=== PATIENT | female | born 1995 | race Two or more races ===

== ENCOUNTER → 2016-12-25 | Outpatient (REF) | payer OTHER ==
[~2016-12-25] MED LIST: ZANT1TAB PO
== END ==
LOC: M SFHCPLAZ 13:17
PROVIDERS: ATTEND Family Medicine
DX: R20.2 Paresthesia of skin (principal)

== ENCOUNTER → 2017-01-03 | Outpatient (REF) | payer OTHER ==
[2017-01-03 12:57] LABS: CONTROL LINE UCG INT CTR LINE PRESENT
== END ==
LOC: M LAB REF 12:41
PROVIDERS: ATTEND Physician Assistant Medical
DX: R11.2 Nausea with vomiting, unspecified (principal)

== ENCOUNTER → 2017-02-18 | Outpatient (CLI) | payer OTHER ==
--- NOTE | 2017-02-18 12:31 | REP ---
ULTRASOUND RIGHT BREAST: HISTORY: Palpable abnormality 10 o'clock right breast. Real-time sonographic evaluation of the right breast is performed in the region of 10 o'clock at the site of the reported palpable abnormality. Dense fibroglandular tissue is seen between 9-11 o'clock. No suspicious cystic or solid mass is seen. IMPRESSION: ACR 2 benign. Dense fibroglandular tissue at the site of the reported palpable abnormality without suspicious cystic or solid mass. Clinical correlation and followup recommended. Negative ultrasound should not deter biopsy of there is a clinically suspicious palpable mass present. Signed by Geoff Arndt MD 02/18/2017 04:21 P
== END ==
LOC: M RAD 10:37
PROVIDERS: ATTEND Family Medicine
DX: N64.4 Mastodynia (principal); R92.8 Other abnormal and inconclusive findings on diagnostic imaging of breast

== ENCOUNTER 2017-07-01 16:39 | Emergency (ER) | payer OTHER ==
[~2017-07-01] VITALS: Ht 154.9 cm; Wt 63.6 kg
[2017-07-01] MEDS ORDERED: ACYC400T (16:47)
[2017-07-01] MEDS ORDERED: ONDANSETRON 4MG/2ML VIAL (J2405) IV ONE (18:00)
[2017-07-01] MEDS ORDERED: MORPHINE 2 MG/ML 1ML SYRINGE IV ONE (18:00)
[2017-07-01 19:11] LABS: BASO % 0.3 % (0.0-1.0); EOS % 0.7 % (0.0-3.0); LARGE UNSTAINED CELL # 0.2 K/mm3 (0.0-0.4); LARGE UNSTAINED CELL % 2.5 % (0.0-4.0); LYMPH # 2.1 K/mm3 (1.5-6.5); MEAN CORPUSCULAR HEMOGLOBIN 30.5 pg (27.0-33.0); MEAN CORPUSCULAR VOLUME 89.7 fl (80.0-96.0); MONO # 0.5 K/mm3 (0.0-0.8); NEUTROPHILS # 5.4 K/mm3 (1.8-7.7); NEUTROPHILS % 65.5 % (36.0-66.0); PLATELET COUNT, AUTOMATED 286 k/mm3 (150-450); RED CELL DISTRIBUTION WIDTH 12.6 % (11.5-14.5); WHITE BLOOD COUNT 8.3 K/mm3 (4.0-10.0)
[2017-07-01 19:15] LABS: CONTROL LINE HCG INT CTR LINE PRESENT
[2017-07-01 19:22] LABS: ALBUMIN 4.3 GM/DL (3.2-5.2); ALBUMIN/GLOBULIN RATIO 1.26 (1.00-1.93); ALKALINE PHOSPHATASE 81 U/L (45-117); ALT/SGPT 19 U/L (12-78); ANION GAP 5 MEQ/L (8-16); AST/SGOT 15 U/L (15-37); BILIRUBIN,DIRECT 0.1 MG/DL (0.0-0.2); BILIRUBIN,TOTAL 0.4 MG/DL (0.2-1.0); BLOOD UREA NITROGEN 10 MG/DL (7-18); CALCIUM LEVEL 9.5 MG/DL (8.5-10.1); CARBON DIOXIDE LEVEL 29 MEQ/L (21-32); CHLORIDE LEVEL 107 MEQ/L (98-107); CREATININE FOR GFR 0.83 MG/DL (0.55-1.02); GLOMERULAR FILTRATION RATE > 60.0 (>60); GLUCOSE, FASTING 92 MG/DL (70-105); POTASSIUM SERUM 3.8 MEQ/L (3.5-5.1); SODIUM LEVEL 141 MEQ/L (136-145); TOTAL PROTEIN 7.7 GM/DL (6.4-8.2)
--- NOTE | 2017-07-01 20:00 | REP ---
HISTORY: Epigastric pain. COMPARISON: 02/15/2016, which was within normal limits. Multiple ultrasonographic images of the liver again show the hepatic parenchymal echo pattern to be within normal limits. There is no intrahepatic or extrahepatic ductal diltation. The common bile duct measures 3 mm. Multiple ultrasonographic images of the gallbladder show no abnormalities. There are no choleliths. There is no pericholecystic edema. There is no change from the prior exam. The imaged portion of the pancreas and right kidney are again seen to be within normal limits. IMPRESSION: Unremarkable right upper quadrant ultrasound examination and essentially no change from the prior exam of 02/15/2016. Signed by Toney Paulson DO 07/05/2017 10:30 A
[2017-07-01] MEDS ORDERED: LACT3000 PO (20:08)
[2017-07-01] MEDS ORDERED: DEXI60CA2 PO (20:08)
[2017-07-01] MEDS ORDERED: GI COCKTAIL 50ML BTL(HYOSCYAMINE/MAALOX/LIDOCAINE VISCOUS)(1:3:1) PO ONE (20:30)
[2017-07-01 20:44] VITALS: BP 105/52
== END 2017-07-01 20:45 | disposition home or self-care (01) ==
LOC: M ED 16:39
DX: K29.70 Gastritis, unspecified, without bleeding (principal); K59.00 Constipation, unspecified; K21.9 Gastro-esophageal reflux disease without esophagitis; Z87.440 Personal history of urinary (tract) infections; F17.210 Nicotine dependence, cigarettes, uncomplicated; Z88.5 Allergy status to narcotic agent; Z91.048 Other nonmedicinal substance allergy status; Z79.899 Other long term (current) drug therapy
CPT/HCPCS: 76705; 80048; 80076; 81001; 83690; 84703; 85025; 96374; 96375; 99283; J2405

== ENCOUNTER 2017-08-04 16:37 | Emergency (ER) | payer OTHER ==
[~2017-08-04] VITALS: Ht 154.9 cm; Wt 60.9 kg
[~2017-08-04 16:37] MED LIST changes: +ACYC400T; +DEXI60CA2 PO; +LACT3000 PO
[2017-08-04] MEDS ORDERED: DOCQ100C (17:03)
[2017-08-04] MEDS ORDERED: RANI150T (17:03)
[2017-08-04] MEDS ORDERED: KETOROLAC 60 MG/2 ML VIAL (J1885) IM ONE (18:15)
[2017-08-04] MEDS ORDERED: ONDANSETRON 4 MG ORAL DISINTEGRATING TAB (S0181) PO ONE (18:15)
[2017-08-04 18:47] LABS: METHADONE URINE NEGATIVE (NEGATIVE)
--- NOTE | 2017-08-04 19:10 | REP ---
ABDOMINAL SERIES: Supine and erect views of the abdomen demonstrate no free air and no evidence for obstruction. No dilated small bowel loops are seen. There is no evidence of fecal impaction. No abnormal calcifications are seen. An accompanying view of the chest demonstrates no acute infiltrate. Cardiomediastinal silhouette is unremarkable. IMPRESSION: Negative abdominal series. Signed by Geoff Arndt MD 08/04/2017 07:52 P
[2017-08-04] MEDS ORDERED: MAGNESIUM CITRATE 300 ML BTL PO ONE ×2 (19:30→21:00)
[2017-08-04] MEDS ORDERED: GI COCKTAIL 50ML BTL(HYOSCYAMINE/MAALOX/LIDOCAINE VISCOUS)(1:3:1) PO ONE (19:45)
[2017-08-04 21:09] VITALS: BP 124/65
[2017-09-14] MEDS ORDERED: LINZ290C PO (14:10)
== END 2017-08-04 21:20 | disposition home or self-care (01) ==
LOC: M ED 16:37
DX: K59.00 Constipation, unspecified (principal); J45.909 Unspecified asthma, uncomplicated; B00.9 Herpesviral infection, unspecified; K58.9 Irritable bowel syndrome, unspecified; F17.210 Nicotine dependence, cigarettes, uncomplicated; Z79.899 Other long term (current) drug therapy; Z88.5 Allergy status to narcotic agent; L23.1 Allergic contact dermatitis due to adhesives
CPT/HCPCS: 74022; 80307; 81001; 81025; 96372; 99284; J1885

== ENCOUNTER 2017-08-06 16:23 | Emergency (ER) | payer OTHER ==
[~2017-08-06] VITALS: Ht 154.9 cm; Wt 60.9 kg
[~2017-08-06 16:23] MED LIST changes: +DOCQ100C; +RANI150T
[2017-08-06 16:24] VITALS: BP 118/58
[2017-08-06 16:59] LABS: BASO % 0.2 % (0.0-1.0); EOS % 0.1 % (0.0-3.0); IMMATURE GRANULOCYTE % 0.3 % (0-0); LYMPH # 1.3 10^3/uL (1.5-6.5); LYMPH % 14.2 % (24.0-44.0); MEAN CORPUSCULAR HEMOGLOBIN 30.5 pg (27.0-33.0); MEAN CORPUSCULAR HGB CONC 34.1 g/dl (32.0-36.5); MEAN CORPUSCULAR VOLUME 89.4 fl (80.0-96.0); MONO # 0.5 10^3/uL (0.0-0.8); MONO % 5.2 % (0.0-5.0); NEUTROPHILS # 7.5 10^3/uL (1.8-7.7); PLATELET COUNT, AUTOMATED 275 10^3/uL (150-450); RED CELL DISTRIBUTION WIDTH 12.7 % (11.5-14.5); WHITE BLOOD COUNT 9.3 10^3/uL (4.0-10.0)
[2017-08-06] MEDS ORDERED: METOCLOPRAMIDE INJ 10MG/2ML VIAL (J2765) IV ONE (17:00)
[2017-08-06] MEDS ORDERED: SUCRALFATE SUSP 1GM/10ML UD PO ONE (17:15)
[2017-08-06] MEDS ORDERED: NS 1,000 ML IV ONE (17:15)
[2017-08-06] MEDS ORDERED: DICYCLOMINE INJ 20MG/2ML (J0500) IM ONE (17:30)
[2017-08-06 17:31] LABS: CONTROL LINE HCG INT CTR LINE PRESENT
[2017-08-06 17:46] LABS: ALBUMIN 4.5 GM/DL (3.2-5.2); ALBUMIN/GLOBULIN RATIO 1.36 (1.00-1.93); ALKALINE PHOSPHATASE 74 U/L (45-117); ALT/SGPT 16 U/L (12-78); ANION GAP 8 MEQ/L (8-16); AST/SGOT 9 U/L (7-37); BILIRUBIN,DIRECT 0.2 MG/DL (0.0-0.2); BILIRUBIN,TOTAL 0.6 MG/DL (0.2-1.0); BLOOD UREA NITROGEN 8 MG/DL (7-18); CALCIUM LEVEL 9.5 MG/DL (8.5-10.1); CARBON DIOXIDE LEVEL 25 MEQ/L (21-32); CHLORIDE LEVEL 107 MEQ/L (98-107); CREATININE FOR GFR 0.71 MG/DL (0.55-1.02); GLOMERULAR FILTRATION RATE > 60.0 (>60); GLUCOSE, FASTING 96 MG/DL (70-105); SODIUM LEVEL 140 MEQ/L (136-145); TOTAL PROTEIN 7.8 GM/DL (6.4-8.2)
[2017-08-06] MEDS ORDERED: BENT10CA PO (17:56)
[2017-08-06] MEDS ORDERED: PROMETHAZINE INJ 25 MG/ML VIAL (J2550) IV ONE (18:00)
[2017-08-06] MEDS ORDERED: KETOROLAC 30 MG/ML VIAL (J1885) IV ONE (18:15)
[2017-08-06] MEDS ORDERED: REGL10TA6 PO (18:24)
== END 2017-08-06 19:50 | disposition home or self-care (01) ==
LOC: M ED 16:23
DX: R10.9 Unspecified abdominal pain (principal); J45.909 Unspecified asthma, uncomplicated; K58.1 Irritable bowel syndrome with constipation; Z79.899 Other long term (current) drug therapy; Z88.5 Allergy status to narcotic agent; L23.1 Allergic contact dermatitis due to adhesives
CPT/HCPCS: 80048; 80076; 81025; 83690; 84703; 85025; 96372; 96374; 96375; 99284; J0500; J1885; J2765

== ENCOUNTER → 2017-09-13 | Outpatient (CLI) | payer OTHER ==
[~2017-09-13] MED LIST changes: +BENT10CA PO; +GLUCAGON FOR INJ 1 MG VIAL (J1610) As Ordered ONE; +ISOVUE-370 76% 100ML VIAL (Q9967) As Ordered ONE; +LINZ290C PO; +REGL10TA6 PO; +VoLumen 0.1% SUSPENSION 450ML BOTTLE As Ordered ONE
--- NOTE | 2017-09-14 07:57 | REP ---
CONTRAST ENHANCED CT OF THE ABDOMEN AND PELVIS USING CT-ENTEROGRAPHIC TECHNIQUES: TECHNIQUE: Axial contrast enhanced images from the lung bases to the pubic symphysis using low density oral contrast for protocol along with 100 mL Isovue, 370 intravenous contrast material with images obtained in the arterial venous phase of enhancement along with coronal and sagittal reformations. FINDINGS: The lung bases are well aerated and clear. Visualized portions of the heart and pericardium are normal. Liver, spleen, pancreas, gallbladder, bilateral adrenal glands and kidneys are normal. Evaluation of the enteric system demonstrates normal appearance to the stomach, small and large bowel without evidence for mural thickening, perienteric inflammatory stranding, or other such abnormalities. There is no evidence for bowel obstruction or perforation. Normal cecum, terminal ileum and appendix identified in the right upper quadrant. The pelvis demonstrates normal bladder and appropriate uterus/adnexa. No pelvic fluid. No solitary mass lesion identified. Vascularity is normal. Surrounding musculoskeletal structures are intact. IMPRESSION: 1. Normal CT of the abdomen and pelvis. No acute abdominal or pelvic pathology appreciated. Specifically, normal appearance to the enteric system. Signed by Darrel Lucas MD 09/17/2017 07:16 A
== END ==
LOC: M RAD 16:40
PROVIDERS: ATTEND Internal Medicine Gastroenterology
DX: R93.3 Abnormal findings on diagnostic imaging of other parts of digestive tract (principal); R63.4 Abnormal weight loss
CPT/HCPCS: 74177; J1610; Q9967

== ENCOUNTER 2017-11-09 11:45 | Day surgery (SDC) | payer OTHER ==
[2017-11-09] MEDS ORDERED: NS 1,000 ML IV (12:15)
[2017-11-09] MEDS ORDERED: LIDOCAINE 2% INJ 100 MG/5 ML SDV (FOR ANES.) As Ordered (12:49)
[2017-11-09] MEDS ORDERED: PROPOFOL 200 MG/20 ML VIAL As Ordered (12:49)
== END 2017-11-09 13:35 | disposition home or self-care (01) ==
LOC: M OPP 11:45
DX: R10.13 Epigastric pain (principal); K58.9 Irritable bowel syndrome, unspecified; R12 Heartburn; K21.9 Gastro-esophageal reflux disease without esophagitis; F41.9 Anxiety disorder, unspecified; F32.9 Major depressive disorder, single episode, unspecified; R51 Headache; B00.9 Herpesviral infection, unspecified; F17.210 Nicotine dependence, cigarettes, uncomplicated; Z88.5 Allergy status to narcotic agent; Z91.048 Other nonmedicinal substance allergy status; Z79.899 Other long term (current) drug therapy; Z80.0 Family history of malignant neoplasm of digestive organs; Z80.3 Family history of malignant neoplasm of breast; Z80.49 Family history of malignant neoplasm of other genital organs
CPT/HCPCS: 43235

== ENCOUNTER 2018-03-04 17:16 | Emergency (ER) | payer OTHER ==
[2018-03-04 19:39] LABS: BASO % 0.4 % (0.0-1.0); EOS # 0.1 10^3/uL (0.0-0.50); EOS % 1.1 % (0.0-3.0); HEMATOCRIT 35.4 % (36.0-47.0); HEMOGLOBIN 12.1 g/dl (12.0-15.5); IMMATURE GRANULOCYTE % 0.3 % (0-3.0); LYMPH # 1.8 10^3/uL (1.5-6.5); LYMPH % 24.4 % (24.0-44.0); MEAN CORPUSCULAR HEMOGLOBIN 30.9 pg (27.0-33.0); MEAN CORPUSCULAR HGB CONC 34.2 g/dl (32.0-36.5); MEAN CORPUSCULAR VOLUME 90.3 fl (80.0-96.0); MONO # 0.8 10^3/uL (0.0-0.8); MONO % 10.4 % (0.0-5.0); NEUTROPHILS # 4.6 10^3/uL (1.8-7.7); NEUTROPHILS % 63.4 % (36.0-66.0); PLATELET COUNT, AUTOMATED 246 10^3/uL (150-450); RED BLOOD COUNT 3.92 10^6/uL (4.00-5.40); RED CELL DISTRIBUTION WIDTH 12.5 % (11.5-14.5); WHITE BLOOD COUNT 7.3 10^3/uL (4.0-10.0)
[2018-03-04 19:56] LABS: CONTROL LINE HCG INT CTR LINE PRESENT; HCG, SERUM QUALITATIVE NEGATIVE (NEGATIVE)
[2018-03-04 20:03] LABS: ALBUMIN 4.2 GM/DL (3.2-5.2); ALBUMIN/GLOBULIN RATIO 1.35 (1.00-1.93); ALKALINE PHOSPHATASE 63 U/L (45-117); ALT/SGPT 15 U/L (12-78); ANION GAP 8 MEQ/L (8-16); AST/SGOT 16 U/L (7-37); BILIRUBIN,TOTAL 0.5 MG/DL (0.2-1.0); BLOOD UREA NITROGEN 9 MG/DL (7-18); CALCIUM LEVEL 9.2 MG/DL (8.5-10.1); CARBON DIOXIDE LEVEL 28 MEQ/L (21-32); CHLORIDE LEVEL 106 MEQ/L (98-107); CREATININE FOR GFR 0.64 MG/DL (0.55-1.30); GLOMERULAR FILTRATION RATE > 60.0 (>60); GLUCOSE, FASTING 82 MG/DL (70-100); POTASSIUM SERUM 3.7 MEQ/L (3.5-5.1); SODIUM LEVEL 142 MEQ/L (136-145); TOTAL PROTEIN 7.3 GM/DL (6.4-8.2)
[2018-03-04] MEDS: AZITHROMYCIN 250 MG TAB PO (20:25)
[2018-03-04] MEDS: ULIPRISTAL ACETATE 30 MG TAB (ELLA) PO (20:25)
[2018-03-04] MEDS: metroNIDAZOLE (FLAGYL) 500 MG TAB PO (20:25)
[2018-03-04] MEDS: EXPOSURE KIT-ADULT 7 DAY SUPPLY PO (20:26)
[2018-03-04] MEDS: ADACEL/BOOSTRIX VACCINE (DIPHTH/PERTUSS/ACELL/TETANUS)0.5ML SYR (90715) IM (20:26)
[2018-03-04] MEDS: cefTRIAXone SOD 250 MG VIAL (J0696) IM (20:27)
[2018-03-04] MEDS: [UNRECOGNIZED DRUG - OTHER] IM (20:27)
[2018-03-04 20:36] LABS: CHLAMYDIA DNA AMPLIFICATION NEGATIVE (NEGATIVE); GC DNA AMPLIFICATION NEGATIVE (NEGATIVE)
[2018-03-04 20:50] LABS: HIV 1&2 SCREEN CENTAUR NEGATIVE (NEGATIVE)
[2018-03-07 11:04] LABS: HEPATITIS B SURFACE ANTIBODY NEGATIVE (POSITIVE)
[2018-03-07 11:14] LABS: HEPATITIS B SURFACE ANTIGEN NEGATIVE (NEGATIVE)
[2018-03-07 11:43] LABS: HEPATITIS C VIRUS ABY INDEX < 0.0 INDEX (<0.8)
== END 2018-03-04 21:44 | disposition home or self-care (01) ==
LOC: M ED 17:16
DX: Z04.41 Encounter for examination and observation following alleged adult rape (principal); R30.0 Dysuria; F32.9 Major depressive disorder, single episode, unspecified; F41.9 Anxiety disorder, unspecified; K58.1 Irritable bowel syndrome with constipation; K21.9 Gastro-esophageal reflux disease without esophagitis; F17.200 Nicotine dependence, unspecified, uncomplicated
CPT/HCPCS: 90715

== ENCOUNTER → 2018-07-31 | Outpatient (REF) | payer OTHER | LOC: M LAB REF 21:07 | DX: J02.9 Acute pharyngitis, unspecified (principal) ==

== ENCOUNTER → 2018-09-27 | Outpatient (CLI) | payer OTHER ==
[~2018-09-27] MED LIST changes: +ALPR0.25 PO; -DOCQ100C; +DOCQ100C5; +FLUO20CA8 PO; -GLUCAGON FOR INJ 1 MG VIAL (J1610) As Ordered ONE; -ISOVUE-370 76% 100ML VIAL (Q9967) As Ordered ONE; +RALT40TA PO; +TRUVTAB PO; -VoLumen 0.1% SUSPENSION 450ML BOTTLE As Ordered ONE; +XANA0.25 PO; +ZANT150T15 PO; -ZANT1TAB PO; +ZOFR4TAB14 PO
== END ==
LOC: M LAB 10:33 → MERGE 10:33
PROVIDERS: ATTEND Family Medicine
DX: F41.9 Anxiety disorder, unspecified (principal)

== ENCOUNTER 2018-09-29 09:21 | Emergency (ER) | payer OTHER ==
[2018-09-29 11:40] LABS: HEMATOCRIT 38.3 % (36.0-47.0); HEMOGLOBIN 12.7 g/dl (12.0-15.5); MEAN CORPUSCULAR HEMOGLOBIN 30.4 pg (27.0-33.0); MEAN CORPUSCULAR HGB CONC 33.2 g/dl (32.0-36.5); MEAN CORPUSCULAR VOLUME 91.6 fl (80.0-96.0); PLATELET COUNT, AUTOMATED 229 10^3/uL (150-450); RED BLOOD COUNT 4.18 10^6/uL (4.00-5.40); WHITE BLOOD COUNT 6.9 10^3/uL (4.0-10.0)
[2018-09-29 12:08] LABS: AMPHETAMINES LEVEL URINE NEGATIVE (NEGATIVE); BARBITURATES URINE NEGATIVE (NEGATIVE); BENZODIAZEPINES URINE POSITIVE (NEGATIVE); CANNABINOIDS URINE POSITIVE (NEGATIVE); COCAINE METABOLITE URINE NEGATIVE (NEGATIVE); METHADONE URINE NEGATIVE (NEGATIVE); OPIATES URINE NEGATIVE (NEGATIVE); PHENCYCLIDINE URINE NEGATIVE (NEGATIVE)
[2018-09-29 12:14] LABS: CONTROL LINE HCG INT CTR LINE PRESENT; HCG, SERUM QUALITATIVE NEGATIVE (NEGATIVE)
[2018-09-29 12:22] LABS: ALBUMIN 3.9 GM/DL (3.2-5.2); ALBUMIN/GLOBULIN RATIO 1.15 (1.00-1.93); ALKALINE PHOSPHATASE 57 U/L (45-117); ALT/SGPT 13 U/L (12-78); ANION GAP 5 MEQ/L (8-16); AST/SGOT 13 U/L (7-37); BILIRUBIN,DIRECT 0.1 MG/DL (0.0-0.2); BILIRUBIN,TOTAL 0.4 MG/DL (0.2-1.0); BLOOD UREA NITROGEN 14 MG/DL (7-18); CALCIUM LEVEL 8.7 MG/DL (8.5-10.1); CARBON DIOXIDE LEVEL 29 MEQ/L (21-32); CHLORIDE LEVEL 106 MEQ/L (98-107); CREATININE FOR GFR 0.69 MG/DL (0.55-1.30); ETHYL ALCOHOL (ETHANOL) 0.006 % (0.000-0.010); GLOMERULAR FILTRATION RATE > 60.0 (>60); GLUCOSE, FASTING 83 MG/DL (70-100); POTASSIUM SERUM 4.5 MEQ/L (3.5-5.1); SALICYLATE LEVEL 2.8 MG/DL (5.0-30.0); SODIUM LEVEL 140 MEQ/L (136-145); TOTAL PROTEIN 7.3 GM/DL (6.4-8.2)
[2018-09-29 12:23] LABS: ACETAMINOPHEN LEVEL < 2.0 UG/ML (10.0-30.0)
== END 2018-09-29 13:44 | disposition home or self-care (01) ==
LOC: M ED 09:21
DX: F91.9 Conduct disorder, unspecified (principal); F41.1 Generalized anxiety disorder; F17.210 Nicotine dependence, cigarettes, uncomplicated
CPT/HCPCS: 80320

== ENCOUNTER → 2019-09-13 | Outpatient (CLI) | payer OTHER ==
[2019-09-13 07:00] LABS: HEMATOCRIT 39.9 % (36.0-47.0); HEMOGLOBIN 12.5 g/dl (12.0-15.5); MEAN CORPUSCULAR HEMOGLOBIN 29.4 pg (27.0-33.0); MEAN CORPUSCULAR HGB CONC 31.3 g/dl (32.0-36.5); MEAN CORPUSCULAR VOLUME 93.9 fl (80.0-96.0); PLATELET COUNT, AUTOMATED 326 10^3/uL (150-450); RED BLOOD COUNT 4.25 10^6/uL (4.00-5.40); WHITE BLOOD COUNT 7.5 10^3/uL (4.0-10.0)
[2019-09-13 07:35] LABS: ALBUMIN 3.9 GM/DL (3.2-5.2); ALT/SGPT 26 U/L (12-78); BILIRUBIN,TOTAL 0.2 MG/DL (0.2-1.0); BLOOD UREA NITROGEN 20 MG/DL (7-18); CALCIUM LEVEL 9.1 MG/DL (8.5-10.1); CARBON DIOXIDE LEVEL 30 MEQ/L (21-32); CHLORIDE LEVEL 105 MEQ/L (98-107); CREATININE FOR GFR 0.71 MG/DL (0.55-1.30); FREE T4 1.05 NG/DL (0.76-1.46); GLOMERULAR FILTRATION RATE > 60.0 (>60); GLUCOSE, FASTING 105 MG/DL (70-100); HCG, SERUM QUALITATIVE NEGATIVE (NEGATIVE); POTASSIUM SERUM 4.2 MEQ/L (3.5-5.1); SODIUM LEVEL 141 MEQ/L (136-145); TOTAL PROTEIN 7.4 GM/DL (6.4-8.2)
--- NOTE | 2019-09-13 17:34 | ECGEPIP ---
[facility] Test Date: 2019-09-13 Pat Name: CIPRIANO SMITH Department: Room: - Gender: Female Critical Care Nurse Specialist: HELEN : 1995 Requested By: Rocio Melgar Order Number: [id number] Reading MD: Chun Anderson Measurements Intervals [place] Rate: 53 P: 61 LA: 107 QRS: 9 QRSD: 94 T: 12 QT: 398 QTc: 375 Interpretive Statements SINUS BRADYCARDIA WITH SHORT LA INTERVAL Baseline artifact Electronically Signed on 09-13-2019 17:33:49 EST by Chun Anderson
== END ==
LOC: M LAB 06:36
PROVIDERS: ATTEND Nurse Practitioner Psychiatric/Mental Health
DX: R00.1 Bradycardia, unspecified (principal); F41.1 Generalized anxiety disorder; F11.20 Opioid dependence, uncomplicated; R94.31 Abnormal electrocardiogram [ECG] [EKG]

== ENCOUNTER → 2019-10-19 | Outpatient (REF) | payer OTHER ==
[~2019-10-19] MED LIST changes: +FLUO20CA20 PO; -FLUO20CA8 PO
[2019-10-19 14:22] LABS: BASO % 0.7 % (0.0-1.0); EOS # 0.1 10^3/uL (0.0-0.5); EOS % 2.2 % (0.0-3.0); HEMOGLOBIN 13.4 g/dl (12.0-15.5); LYMPH # 2.8 10^3/uL (1.5-5.0); LYMPH % 46.9 % (24.0-44.0); MEAN CORPUSCULAR HEMOGLOBIN 28.6 pg (27.0-33.0); MEAN CORPUSCULAR HGB CONC 31.2 g/dl (32.0-36.5); MEAN CORPUSCULAR VOLUME 91.9 fl (80.0-96.0); MONO # 0.6 10^3/uL (0.0-0.8); MONO % 9.8 % (0.0-5.0); NEUTROPHILS # 2.4 10^3/uL (1.5-8.5); NEUTROPHILS % 40.2 % (36.0-66.0); PLATELET COUNT, AUTOMATED 393 10^3/uL (150-450); RED BLOOD COUNT 4.68 10^6/uL (4.00-5.40); WHITE BLOOD COUNT 5.9 10^3/uL (4.0-10.0)
[2019-10-19 14:42] LABS: ALT/SGPT 23 U/L (12-78); BILIRUBIN,TOTAL 0.3 MG/DL (0.2-1.0); BLOOD UREA NITROGEN 14 MG/DL (7-18); CALCIUM LEVEL 9.4 MG/DL (8.5-10.1); CARBON DIOXIDE LEVEL 29 MEQ/L (21-32); CHLORIDE LEVEL 104 MEQ/L (98-107); CHOLESTEROL LEVEL 176 MG/DL (<200); CHOLESTEROL RISK RATIO 2.588 (<5); FREE T4 0.95 NG/DL (0.76-1.46); GLOMERULAR FILTRATION RATE > 60.0 (>60); GLUCOSE, FASTING 85 MG/DL (70-100); HDL CHOLESTEROL 68 MG/DL (>40); LDL CHOLESTEROL 97 MG/DL (<100); NON-HDL-C 108 MG/DL; POTASSIUM SERUM 4.5 MEQ/L (3.5-5.1); SODIUM LEVEL 139 MEQ/L (136-145); TOTAL PROTEIN 7.2 GM/DL (6.4-8.2); TRIGLYCERIDES LEVEL 56 MG/DL (<150)
[2019-10-19 14:43] LABS: HEMOGLOBIN A1c 5.2 %
[2019-10-19 14:44] LABS: TOTAL 25(OH) VITAMIN D 21.7 NG/ML (30.0-100.0)
== END ==
LOC: M LAB REF 14:08
PROVIDERS: ATTEND Nurse Practitioner Family
DX: Z13.9 Encounter for screening, unspecified (principal)

== ENCOUNTER 2019-11-09 17:31 | Emergency (ER) | payer OTHER ==
[~2019-11-09] VITALS: Ht 154.9 cm; Wt 59.1 kg
[2019-11-09] MEDS ORDERED: BUPREN/NALOX (20:19)
[2019-11-09] MEDS ORDERED: HYDR50TA70 PO (20:19)
[2019-11-09 20:25] LABS: BASO # 0.1 10^3/uL (0.0-0.2); BASO % 0.3 % (0.0-1.0); EOS # 0.1 10^3/uL (0.0-0.5); EOS % 0.8 % (0.0-3.0); HEMATOCRIT 41.2 % (36.0-47.0); HEMOGLOBIN 13.4 g/dl (12.0-15.5); LYMPH # 1.5 10^3/uL (1.5-5.0); LYMPH % 10.2 % (24.0-44.0); MEAN CORPUSCULAR HEMOGLOBIN 28.8 pg (27.0-33.0); MEAN CORPUSCULAR HGB CONC 32.5 g/dl (32.0-36.5); MEAN CORPUSCULAR VOLUME 88.4 fl (80.0-96.0); MONO % 6.9 % (0.0-5.0); NEUTROPHILS # 11.7 10^3/uL (1.5-8.5); NEUTROPHILS % 81.4 % (36.0-66.0); PLATELET COUNT, AUTOMATED 301 10^3/uL (150-450); RED BLOOD COUNT 4.66 10^6/uL (4.00-5.40); WHITE BLOOD COUNT 14.4 10^3/uL (4.0-10.0)
[2019-11-09 21:00] LABS: HCG, SERUM QUALITATIVE NEGATIVE (NEGATIVE)
[2019-11-09] MEDS ORDERED: PANTOPRAZOLE 40MG INJ (PROTONIX) (C9113) IV ONE (21:00)
[2019-11-09] MEDS ORDERED: PROMETHAZINE INJ 25 MG/ML VIAL (J2550) IM ONE (21:00)
[2019-11-09 21:16] LABS: ALBUMIN 4.1 GM/DL (3.2-5.2); ALT/SGPT 44 U/L (12-78); BILIRUBIN,DIRECT < 0.1 MG/DL (0.0-0.2); BILIRUBIN,TOTAL 0.4 MG/DL (0.2-1.0); BLOOD UREA NITROGEN 10 MG/DL (7-18); CALCIUM LEVEL 9.2 MG/DL (8.5-10.1); CARBON DIOXIDE LEVEL 27 MEQ/L (21-32); CHLORIDE LEVEL 105 MEQ/L (98-107); CREATININE FOR GFR 0.65 MG/DL (0.55-1.30); GLOMERULAR FILTRATION RATE > 60.0 (>60); GLUCOSE, FASTING 101 MG/DL (70-100); LIPASE 136 U/L (73-393); POTASSIUM SERUM 4.1 MEQ/L (3.5-5.1); SODIUM LEVEL 138 MEQ/L (136-145); TOTAL PROTEIN 7.2 GM/DL (6.4-8.2)
[2019-11-09 23:25] LABS: AMPHETAMINES LEVEL URINE NEGATIVE (NEGATIVE); BARBITURATES URINE NEGATIVE (NEGATIVE); BENZODIAZEPINES URINE NEGATIVE (NEGATIVE); CANNABINOIDS URINE POSITIVE (NEGATIVE); COCAINE METABOLITE URINE NEGATIVE (NEGATIVE); METHADONE URINE NEGATIVE (NEGATIVE); OPIATES URINE NEGATIVE (NEGATIVE); PHENCYCLIDINE URINE NEGATIVE (NEGATIVE)
--- NOTE | 2019-11-10 00:11 | REPVR ---
PROCEDURE INFORMATION: Exam: CT Abdomen And Pelvis Without Contrast Exam date and time: 11/09/2019 10:30 PM Age: 24 years old Clinical indication: Abdominal pain; Generalized; Additional info: Abd pain, hematuria TECHNIQUE: Imaging protocol: Computed tomography of the abdomen and pelvis without contrast. Radiation optimization: All CT scans at this facility use at least one of these dose optimization techniques: automated exposure control; mA and/or kV adjustment per patient size (includes targeted exams where dose is matched to clinical indication); or iterative reconstruction. COMPARISON: CT ABD PELVIS WITH CONTRAST 09/13/2017 6:23 PM FINDINGS: Mediastinum: Minimal hiatal hernia. Liver: Normal. No mass. Gallbladder and bile ducts: Normal. No calcified stones. No ductal dilation. Pancreas: Normal. No ductal dilation. Spleen: Normal. No splenomegaly. Adrenals: Normal. No mass. Kidneys and ureters: No renal or ureteral calculi. Stomach and bowel: Mild stool throughout much of the colon. Appendix: A normal small appendix is seen. Intraperitoneal space: Unremarkable. No free air. No significant fluid collection. Vasculature: Unremarkable. No abdominal aortic aneurysm. Lymph nodes: Unremarkable. No enlarged lymph nodes. Bladder: Unremarkable as visualized. Reproductive: Unremarkable as visualized. Bones/joints: Unremarkable. No acute fracture. Soft tissues: Unremarkable. IMPRESSION: 1. Minimal hiatal hernia. 2. Otherwise negative CT abdomen/pelvis without significant change from 09/13/2017. No renal or ureteral calculi are evident and there is no evidence of obstructive uropathy. Electronically signed by: Bashir Martínez On 11/10/2019 00:10:35 AM
[2019-11-10] MEDS ORDERED: CARA1TAB6 PO (00:17)
[2019-11-10] MEDS ORDERED: PROT1TAB2 PO (00:17)
[2019-11-10 00:45] VITALS: BP 97/59
[2019-11-10] MEDS ORDERED: ONDANSETRON 4 MG ORAL DISINTEGRATING TAB (Q0162 PER 1MG) PO ONE (01:15)
== END 2019-11-10 01:14 | disposition home or self-care (01) ==
LOC: M ED 17:31
DX: K44.9 Diaphragmatic hernia without obstruction or gangrene (principal); K21.9 Gastro-esophageal reflux disease without esophagitis; F41.9 Anxiety disorder, unspecified; Z79.899 Other long term (current) drug therapy; Z91.048 Other nonmedicinal substance allergy status
CPT/HCPCS: 74176; 80048; 80076; 80307; 81001; 83690; 84703; 85025; 87086; 96372; 96374; 99284; C9113; Q0162

== ENCOUNTER 2019-12-11 12:39 | Emergency (ER) | payer OTHER ==
[~2019-12-11 12:39] MED LIST changes: +BUPREN/NALOX; +CARA1TAB6 PO; +HYDR50TA70 PO; +PROT1TAB2 PO
[2019-12-11] MEDS ORDERED: NS 1,000 ML IV ONE (13:00)
[2019-12-11 13:27] LABS: BASO % 0.5 % (0.0-1.0); EOS # 0.2 10^3/uL (0.0-0.5); EOS % 2.9 % (0.0-3.0); HEMATOCRIT 38.7 % (36.0-47.0); HEMOGLOBIN 12.6 g/dl (12.0-15.5); LYMPH # 2.6 10^3/uL (1.5-5.0); LYMPH % 42.4 % (24.0-44.0); MEAN CORPUSCULAR HEMOGLOBIN 29.3 pg (27.0-33.0); MEAN CORPUSCULAR HGB CONC 32.6 g/dl (32.0-36.5); MONO # 0.6 10^3/uL (0.0-0.8); MONO % 9.5 % (0.0-5.0); NEUTROPHILS # 2.8 10^3/uL (1.5-8.5); NEUTROPHILS % 44.5 % (36.0-66.0); PLATELET COUNT, AUTOMATED 277 10^3/uL (150-450); WHITE BLOOD COUNT 6.2 10^3/uL (4.0-10.0)
[2019-12-11] MEDS ORDERED: SUBO8MIS SL (13:35)
[2019-12-11] MEDS ORDERED: ISOVUE-370 76% 100ML VIAL (Q9967) As Ordered ONE (13:37)
[2019-12-11 13:58] LABS: ACETAMINOPHEN LEVEL < 2.0 UG/ML (10.0-30.0); ALBUMIN 3.8 GM/DL (3.2-5.2); ALT/SGPT 17 U/L (12-78); BILIRUBIN,DIRECT 0.1 MG/DL (0.0-0.2); BILIRUBIN,TOTAL 0.4 MG/DL (0.2-1.0); ETHYL ALCOHOL (ETHANOL) < 0.003 % (0.000-0.010); LIPASE 100 U/L (73-393); TOTAL PROTEIN 7.2 GM/DL (6.4-8.2)
[2019-12-11 14:45] VITALS: BP 111/64
--- NOTE | 2019-12-11 15:04 | REP ---
CT ABDOMEN AND PELVIS WITH IV CONTRAST: TECHNIQUE: Axial contrast enhanced images from the lung bases to the pubic symphysis using 100 mL Isovue 370 intravenous contrast material with multiplanar reformations. COMPARISON: 11/09/2019 as well as other prior exams. Visualized lung bases demonstrate no infiltrate. The liver, spleen, adrenals, pancreas, and kidneys are unremarkable. There is no hydronephrosis bilaterally. There is no abdominal aortic aneurysm. There is no adenopathy. There is no free air or free fluid. There is no bowel wall thickening. There is no evidence of appendicitis. No pelvic mass is seen. Urinary bladder is mildly distended and grossly unremarkable. There is no small bowel obstruction. IMPRESSION: No acute abnormality detected. Electronically Signed by Geoff Arndt MD 12/11/2019 05:59 P
== END 2019-12-11 15:15 | disposition left against medical advice (07) ==
LOC: M ED 12:39
DX: F11.20 Opioid dependence, uncomplicated (principal); F33.9 Major depressive disorder, recurrent, unspecified; K21.9 Gastro-esophageal reflux disease without esophagitis; Z91.048 Other nonmedicinal substance allergy status
CPT/HCPCS: 36415; 74177; 80047; 80076; 83605; 83690; 84443; 84702; 85025; 93041; 96360; 96361; 99284; G0480; Q9967

== ENCOUNTER → 2020-03-20 | Outpatient (REF) | payer OTHER ==
[~2020-03-20] MED LIST changes: +SUBO8MIS SL
[2020-03-20 12:30] LABS: APPEARANCE, URINE CLOUDY (CLEAR); BACTERIA, URINE AUTO NEGATIVE (NEGATIVE); BILIRUBIN, URINE AUTO NEGATIVE (NEGATIVE); BLOOD, URINE BLOOD NEGATIVE (NEGATIVE); COLOR, URINE YELLOW (YELLOW); GLUCOSE, URINE (UA) AUTO NEGATIVE (NEGATIVE); KETONE, URINE AUTO 2+ mg/dL (NEGATIVE); LEUKOCYTE ESTERASE, URINE AUTO NEGATIVE (NEGATIVE); MUCUS, URINE MODERATE (NEGATIVE); NITRITE, URINE AUTO NEGATIVE (NEGATIVE); PROTEIN, URINE AUTO 1+ mg/dL (NEGATIVE); RBC, URINE AUTO 3 /HPF (0-3); SPECIFIC GRAVITY URINE AUTO 1.035 (1.002-1.035); SQUAMOUS EPITHELIAL CELL UR AU 10 /HPF (0-6); UROBILINOGEN, URINE AUTO 0.2 mg/dL (0.0-2.0); WBC, URINE AUTO 3 /HPF (0-3)
[2020-03-20 14:33] LABS: CHLAMYDIA DNA AMPLIFICATION NEGATIVE (NEGATIVE); GC DNA AMPLIFICATION NEGATIVE (NEGATIVE)
== END ==
LOC: M LAB REF 12:10
PROVIDERS: ATTEND Physician Assistant
DX: N39.0 Urinary tract infection, site not specified (principal)

== ENCOUNTER 2020-04-17 16:49 | Inpatient (IN) | payer MEDICAID, OTHER ==
[2020-04-17 17:44] LABS: HEMATOCRIT 42.7 % (36.0-47.0); HEMOGLOBIN 14.3 g/dl (12.0-15.5); MEAN CORPUSCULAR HEMOGLOBIN 29.8 pg (27.0-33.0); MEAN CORPUSCULAR HGB CONC 33.5 g/dl (32.0-36.5); PLATELET COUNT, AUTOMATED 270 10^3/uL (150-450); WHITE BLOOD COUNT 7.6 10^3/uL (4.0-10.0)
[2020-04-17 18:22] LABS: ACETAMINOPHEN LEVEL < 2.0 UG/ML (10.0-30.0); ALBUMIN 4.4 GM/DL (3.2-5.2); ALT/SGPT 17 U/L (12-78); BILIRUBIN,DIRECT 0.2 MG/DL (0.0-0.2); BILIRUBIN,TOTAL 0.5 MG/DL (0.2-1.0); BLOOD UREA NITROGEN 9 MG/DL (7-18); CALCIUM LEVEL 9.4 MG/DL (8.5-10.1); CARBON DIOXIDE LEVEL 24 MEQ/L (21-32); CHLORIDE LEVEL 109 MEQ/L (98-107); CREATININE FOR GFR 0.73 MG/DL (0.55-1.30); ETHYL ALCOHOL (ETHANOL) 0.004 % (0.000-0.010); GLOMERULAR FILTRATION RATE > 60.0 (>60); GLUCOSE, FASTING 94 MG/DL (70-100); SALICYLATE LEVEL < 1.7 MG/DL (5.0-30.0); SODIUM LEVEL 142 MEQ/L (136-145); THYROID STIMULATING HORMONE 0.832 uIU/ML (0.358-3.740); TOTAL PROTEIN 7.7 GM/DL (6.4-8.2)
[2020-04-17 18:25] LABS: HCG, SERUM QUALITATIVE NEGATIVE (NEGATIVE)
[2020-04-17] MEDS ORDERED: LORazepam 0.5 MG TAB PO STA (19:38)
[2020-04-17 20:50] LABS: AMPHETAMINES LEVEL URINE NEGATIVE (NEGATIVE); BARBITURATES URINE NEGATIVE (NEGATIVE); BENZODIAZEPINES URINE NEGATIVE (NEGATIVE); CANNABINOIDS URINE POSITIVE (NEGATIVE); COCAINE METABOLITE URINE NEGATIVE (NEGATIVE); METHADONE URINE NEGATIVE (NEGATIVE); OPIATES URINE NEGATIVE (NEGATIVE); PHENCYCLIDINE URINE NEGATIVE (NEGATIVE)
[2020-04-17] MEDS ORDERED: MOM 30ML SUSPENSION UDC PO PRN (21:30)
[2020-04-17] MEDS ORDERED: LORazepam 0.5 MG TAB PO PRN (21:30)
[2020-04-17] MEDS ORDERED: MAALOX 30 ML SUSP *UDC PO PRN (21:30)
[2020-04-17] MEDS ORDERED: ACETAMINOPHEN TAB 650MG DOSE (2X325MG) PO PRN (21:30)
[2020-04-18] MEDS: LORazepam 0.5 MG TAB PO SCH ×2 (09:00→21:00)
--- NOTE | 2020-04-18 09:52 | MHHPEPDOC ---
[facility] History & Physical History and Physical DATE OF ADMISSION: Apr 17, 2020 at 21:30 HPI: Felipa presents to [facility] after being brought into the ER for two weeks of becoming increasingly mute and bizarre, as well as making suicidal statements. Felipa did not respond to questions during the interview and appeared to be very strange in her behavior. Past psych,fm,sochx: unable to determine due to MSE Objective Behavior: No effort to respond. Patient stares blankly down at the floor. Mood: Speech is non-spontaneous with no production. Speech: No effort to respond to questions. Judgement: Poor judgement. Insight: Poor insight. 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 We will consider CK Laboratory studies to ascertain if there is any Rhabdomyolysis or metabolic abnormalities if she does not eat today. Her treatment priorities are danger to self due to poor self-care and non-compl iance. Her estimated length of stay is anywhere between 3-5 days. We will continue to observe, try to encourage PO fluids and eating as this is a known complication, and catatonia. Vital Signs Vital Signs Date Time Temp Pulse Resp B/P (MAP) Pulse Ox O2 Delivery O2 Flow Rate FiO2 04/17/20 17:25 97.6 84 18 117/74 (88) 99 Laboratory Data 24H Labs Laboratory Tests 2 04/17/20 17:29: Nucleated Red Blood Cells % (auto) 0.0, Anion Gap 9, Glomerular Filtration Rate > 60.0, Calcium Level 9.4, Total Bilirubin 0.5, Direct Bilirubin 0.2, Aspartate Amino Transf (AST/SGOT) 11, Alanine Aminotransferase (ALT/SGPT) 17, Alkaline Phosphatase 65, Total Protein 7.7, Albumin 4.4, Albumin/Globulin Ratio 1.3, Thyroid Stimulating Hormone (TSH) 0.832, Human Chorionic Gonadotropin, Qual NEGATIVE, Salicylates Level < 1.7L, Acetaminophen Level < 2.0L, Ethyl Alcohol Level 0.004 04/17/20 20:23: Urine Opiates Screen NEGATIVE, Urine Methadone Screen NEGATIVE, Urine Barbiturates Screen NEGATIVE, Urine Phencyclidine Screen NEGATIVE, Urine Amphetamines Screen NEGATIVE, Urine Benzodiazepines Screen NEGATIVE, Urine Cocaine Metabolite Screen NEGATIVE, Urine Cannabinoids Screen POSITIVEH CBC/BMP Laboratory Tests 04/17/20 17:29 Medications No Active Prescriptions or Reported Meds Allergies Coded Allergies: TAPE (Unverified Allergy, Unknown, irritation to skin, 11/05/17) NADER RIZVI DO Apr 18, 2020 09:52
--- NOTE | 2020-04-18 15:23 | HPEPDOC ---
General Date of Admission Apr 17, 2020 at 21:30 Date of Service: Apr 18, 2020 Attending Physician: GABBY CORDERO MD Chief Complaint The patient is a 25-year-old female admitted with a reason for visit of Catatonia. Source: Patient, RN/MD Exam Limitations: No limitations History of Present Illness 25 yo W with a history of GERD, IBS c/b chronic constipation, menorrhagia, depression, anxiety, PSUD who was admitted with suicidal ideation and found to be minimally responding with c/f catatonia, for whom medicine is consulted for medical evaluation. No physical complaints at this time. Home Medications No Active Prescriptions or Reported Meds Allergies Coded Allergies: TAPE (Unverified Allergy, Unknown, irritation to skin, 11/05/17) Past Medical History Medical History GERD IBS c/b chronic constipation menorrhagia depression anxiety PSUD Family History Significant Family History: No pertinent family hx Social History Alcohol: occationally Drugs: marijuana Recent Travel/Sick Contacts: Denies: Recent travel, Recent sick contacts Psychosocial History: Anxiety, Depression, Suicidal thoughts A-FIB/CHADSVASC A-FIB History Current/History of A-Fib/PAF?: No Current PO Anticoag Therapy: No Age/Risk Factor Scoring CHADSVASC: CHADSVASC Response (Comments) Value Age Risk Factor Age < 65 years old 0 Gender Risk Factor Female 1 Hx of CHF No 0 Hx of HTN No 0 Hx of Stroke/TIA/or VTE No 0 Hx of Diabetes No 0 Hx of Vascular Disease No 0 Total 1 Treatment Treatment ordered: NONE Reason Anticoagulant not given: Not indicated/[id number] Review of Systems Constitutional: Denies: Chills, Fever, Night Sweats Eyes: Denies: Pain, Vision change ENT: Denies: Head Aches, Ear Pain, Dysphagia Skin: Denies: Rash, Lesions, Breakdown Pulmonary: Denies: Dyspnea, Cough Cardiovascular: Denies: Chest Pain, Palpitations, Orthopnea, Paroxysmal Noc. Dyspnea, Lt Headedness Gastrointestinal: Denies: Nausea, Vomiting, Abdominal Pain, Diarrhea Hematologic: Denies: Bruising, Bleeding Excessively Neurological: Denies: Weakness, Numbness, Change in speech, Confusion Psych: Reports: Anxiety, Depression Physical Examination General Exam: Positive: Alert, No Acute Distress Eye Exam: Positive: PERRLA, Conjunctiva & lids normal, EOMI; Negative: Sclera icteric ENT Exam: Positive: Atraumatic, Mucous membr. moist/pink, Pharynx Normal Neck Exam: Positive: Supple; Negative: JVD, thyromegaly Chest Exam: Positive: Clear to auscultation, Normal air movement Heart Exam: Positive: Rate Normal, Regular Rhythm, Normal S1, Normal S2; Negative: Murmurs, Rubs Abdomen Exam: Positive: Normal bowel sounds, Soft; Negative: Tenderness, Hepatospenomegaly Extremity Exam: Positive: Normal pulses; Negative: Clubbing, Cyanosis, Edema Skin Exam: Positive: Nl turgor and temperature; Negative: Breakdown, Lesion Neuro Exam: Positive: Normal Speech, Strength at 5/5 X4 ext, Cranial Nerves 3- 12 NL Psych Exam: Positive: Other (minimally responding to questions, flat) Vital Signs Vital Signs Date Time Temp Pulse Resp B/P (MAP) Pulse Ox O2 Delivery O2 Flow Rate FiO2 04/17/20 17:25 97.6 84 18 117/74 (88) 99 Laboratory Data Labs 24H Laboratory Tests 2 04/17/20 17:29: Nucleated Red Blood Cells % (auto) 0.0, Anion Gap 9, Glomerular Filtration Rate > 60.0, Calcium Level 9.4, Total Bilirubin 0.5, Direct Bilirubin 0.2, Aspartate Amino Transf (AST/SGOT) 11, Alanine Aminotransferase (ALT/SGPT) 17, Alkaline Phosphatase 65, Total Protein 7.7, Albumin 4.4, Albumin/Globulin Ratio 1.3, Thyroid Stimulating Hormone (TSH) 0.832, Human Chorionic Gonadotropin, Qual NEGATIVE, Salicylates Level < 1.7L, Acetaminophen Level < 2.0L, Ethyl Alcohol Level 0.004 04/17/20 20:23: Urine Opiates Screen NEGATIVE, Urine Methadone Screen NEGATIVE, Urine Barbiturates Screen NEGATIVE, Urine Phencyclidine Screen NEGATIVE, Urine Amphetamines Screen NEGATIVE, Urine Benzodiazepines Screen NEGATIVE, Urine Cocaine Metabolite Screen NEGATIVE, Urine Cannabinoids Screen POSITIVEH CBC/BMP Laboratory Tests 04/17/20 17:29 Assessment/Plan 25 yo W with a history of GERD, IBS c/b chronic constipation, menorrhagia, depression, anxiety, PSUD who was admitted with suicidal ideation and found to be minimally responding with c/f catatonia, for whom medicine is consulted for medical evaluation without physical complaints at this time. Medicine will sign off at this time. Plan: Suicidal statements with confirmed ideation with a history of depression and anxiety: -Management per primary psychiatry team. IBS with chronic constipation: -senna/colace daily Plan / VTE VTE Prophylaxis Ordered?: No VTE Exclusion Mechanical Proph: Low Risk for VTE VTE Exclusion Pharmacological: At Low Risk for VTE GABBY CORDERO MD Apr 18, 2020 15:04
[2020-04-18] MEDS: SENOKOT S TAB PO SCH (15:30)
[2020-04-18 16:14] VITALS: BP 119/75
[2020-04-19 07:19] VITALS: BP 106/58
[2020-04-19] MEDS: LORazepam 0.5 MG TAB PO SCH ×2 (09:00→21:40)
[2020-04-19] MEDS: SENOKOT S TAB PO SCH ×2 (09:00→17:21)
[2020-04-19 16:44] VITALS: BP 110/68
[2020-04-20] MEDS: SENOKOT S TAB PO SCH (09:00)
[2020-04-20] MEDS: LORazepam 0.5 MG TAB PO SCH ×2 (09:00→21:00)
[2020-04-20 16:34] VITALS: BP 118/76
[2020-04-21] MEDS: SENOKOT S TAB PO SCH ×2 (09:00→09:21)
[2020-04-21] MEDS: LORazepam 0.5 MG TAB PO SCH ×3 (09:00→20:18)
--- NOTE | 2020-04-21 12:42 | MHIPNPDOC ---
[facility] Progress Note Progress Note DATE OF SERVICE: 04/21/20 HPI: Pt presents today for a follow up and states that she does not want to be in the hospital. Initially, she did not speak much due to feeling extremely dep ressed. She notes that she wants to go outside and denies any SI. MEDICATIONS: She started Ativan, which seems to have helped her become more active. She previously tried Zoloft which caused difficulty sleeping. Objective Appearance: Well nourished. Well groomed. Behavior: Pleasant. Engaged. Cooperative with good eye contact. Affect: Appropriate to context. Full range. Mood: Appropriately reactive. Generally good. Euthymic. Speech: Normal volume. Normal rate. Motor: No gross motor abnormalities. Cognition: Alert, Attentive, and Oriented to person, place, time. Memory: No formal testing. No gross abnormalities of short or custodial memory noted during interview. Thought Form: Linear and goal directed. Thought Content: No evidence of aggressive or homicidal ideation. No evidence of suicidal ideation. No evidence of delusions. No thoughts of self harm. Perception: No perceptual abnormalities noted. Judgement: intact as evidenced by decision making in the recent past. Insight: good insight into symptoms and treatment options. 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 The risks, benefits as well as common side effects as well as alternative treatments (including non-treatment) were discussed with the patient both in general and for their particular case. The patient selected this option out of a range. Well continue to monitor and discharge if patient continues to improve. Vital Signs Vital Signs Date Time Temp Pulse Resp B/P (MAP) Pulse Ox O2 Delivery O2 Flow Rate FiO2 04/20/20 16:34 97.8 98 16 118/76 (90) 04/19/20 07:19 100 Room Air Current Medications Current Medications Medications (Trade) Dose Ordered Sig/Radha Route PRN Reason Start Time Stop Time Status Last Admin Dose Admin Acetaminophen (Tylenol Tab) 650 mg Q6HP PRN PO HEADACHE or DISCOMFORT 04/17/20 21:30 Al Hydrox/Mg Hydrox/Simethicone (Mylanta) 30 ml Q4HP PRN PO HEARTBURN/INDIGESTION 7/8/20 21:30 Home Med (Med Rec Complete!) ASDIRECTED XX 04/17/20 20:30 04/17/20 20:22 DC Lorazepam (Ativan) 0.5 mg BID PO 04/18/20 09:00 04/21/20 09:21 Lorazepam (Ativan) 0.5 mg Q4HP PRN PO ANXIETY/AGITATION 04/17/20 21:30 04/18/20 10:22 DC Lorazepam (Ativan) 0.5 mg STAT STAT PO 04/17/20 19:38 04/17/20 19:39 DC Magnesium Hydroxide (Milk Of Magnesia) 30 ml DAILYPRN PRN PO CONSTIPATION 04/17/20 21:30 Senna/Docusate Sodium (Senokot S) 1 tab DAILY PO 04/18/20 15:30 04/21/20 09:21 Allergies Coded Allergies: TAPE (Unverified Allergy, Unknown, irritation to skin, 11/05/17) NADER RIZVI DO Apr 21, 2020 12:42
[2020-04-21] MEDS ORDERED: FLUoxetine 10 MG CAP PO ONE (16:00)
[2020-04-21 16:36] VITALS: BP 109/68
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
[2020-04-22 06:55] VITALS: BP 133/66
[2020-04-22] MEDS ORDERED: FLUoxetine 10 MG CAP PO SCH (09:00)
--- NOTE | 2020-04-22 09:24 | MHDSPDOC ---
[facility] Discharge Summary Discharge Summary DATE OF ADMISSION: Apr 17, 2020 at 21:30 DATE OF DISCHARGE: Apr 22, 2020 at 10:38 DISCHARGE DIAGNOSES: Unspecified depressive disorder catatonia opioid use disorder, unspecified REASON FOR ADMISSION: 25-year-old woman presents with severe catatonia symptoms likely after depression becoming nearly mute over 2 weeks prior to admission CONSULTANTS INVOLVED:[ None (basic hospitalist screening)] TREATMENT AND PROGRESS ON THE UNIT : Medication changes: started on Ativan 0.5 mg BID did not speak for the most part, however when she started taking the medication. She became much improved becoming talkative and much more engaged. She was generally guarded but was much improved, started Prozac 10 mg daily to help underlying likely depression Behavior on unit: initially isolate event bizarre, she resolved significantly one started on Ativan Treatment attendance: attended at times as she improved Notable issues on presentation: none State on discharge: [improved] DISCHARGE ASSESSMENT: The patient a 25 year old woman, with likely depression related catatonia, presented to [facility], where they treated with appropriate benzodiazepine and treatment of underlying depression with Prozac making significant progress. Legal status considerations: The patient at the time of discharge did not meet criteria for involuntary admission/extension due to having a [normal] mental status exam, improved insight into the situation, They are engaged in the discharge process, as well as being friendly and amenable in behavioral control and havent been engaging in any observed concerning behavior or ideation recently. They decline voluntary extension/admission at this time and must be discharged in good manav, as Im unable to make a case for holding the patient against their will. They may have historical risk factors of admissions and other interactions with psychiatry however, those are not modifiable from a clinical perspective. The patient will need to be discharged in good manav. MENTAL STATUS EXAMINATION ON DISCHARGE: General: [Well dressed with good hygiene] Speech: [Spontaneous and fluid] Thought processes: [Linear and logical] Thought content: [Future orientated] Abstract reasoning, and computation: [Intact] Description of associations: [Intact] Description of abnormal or psychotic thoughts:[Denies any suicidal or homicidal ideation. Denies any auditory or visual hallucinations. Does not appear to be responding to internal stimuli. Does not appear to be endorsing any bizarre or paranoid ideation.] Judgment: improved Insight: improved Orientation: [Alert and orientated 3] Recent and remote memory: [Intact] Attention span and concentration: [Intact] Fund of knowledge: [Adequate] Mood: ["okay"] Affect: [Euthymic with a full range] PLAN/FOLLOWUP ARRANGEMENTS: Follow up appointments made (PCP and MH in 5 days of D/C date) and safety plan completed. Safety Planning aspects completed prior to discharge [Medication supplies limited to 7 days with 4 refills to prevent accumulation to OD] [Family contact completed, educated on safe practices, instructed on removal and mitigation of dangerous means] [RN reviewed crisis hotline information and other aspects to empower patient to access care in interim before next appointment.] The amount of time spent in the coordination of care for this patient was approximately 30 minutes. Vital Signs/I&Os Vital Signs Date Time Temp Pulse Resp B/P (MAP) Pulse Ox O2 Delivery O2 Flow Rate FiO2 04/22/20 06:55 96.2 97 12 133/66 (88) Room Air 04/19/20 07:19 100 Medications Scheduled Fluoxetine Hcl (Fluoxetine HCl) 10 Mg Capsule, 10 MG PO DAILY for mood for 7 Days, #7 Lorazepam (Ativan) 0.5 Mg Tablet, 0.5 MG PO BID for catatonia for 7 Days, #14 Allergies Coded Allergies: TAPE (Unverified Allergy, Unknown, irritation to skin, 11/05/17) NADER RIZVI DO Apr 22, 2020 09:24
[2020-04-22] MEDS: LORazepam 0.5 MG TAB PO SCH (09:25)
[2020-04-22] MEDS ORDERED: FLUO10CA15 PO (09:27)
[2020-04-22] MEDS ORDERED: ATIV1TAB10 PO (09:27)
[2020-04-22] MEDS: SENOKOT S TAB PO SCH (09:28)
== END 2020-04-22 10:38 | disposition home or self-care (01) | DRG 751 ==
LOC: M ED 16:49 → M ED INP 21:30 → M PSY 22:45
PROVIDERS: ADMIT Psychiatry & Neurology Addiction Medicine; ATTEND Psychiatry & Neurology Addiction Medicine
DX: F33.1 Major depressive disorder, recurrent, moderate (principal); F06.1 Catatonic disorder due to known physiological condition; Z91.048 Other nonmedicinal substance allergy status; K21.9 Gastro-esophageal reflux disease without esophagitis; K58.1 Irritable bowel syndrome with constipation; F41.9 Anxiety disorder, unspecified; N92.0 Excessive and frequent menstruation with regular cycle; F11.10 Opioid abuse, uncomplicated

== ENCOUNTER → 2020-07-24 | Outpatient (REF) | payer MEDICAID ==
[~2020-07-24] MED LIST changes: +ATIV1TAB10 PO; +FLUO10CA16 PO
[2020-07-24 19:29] LABS: APPEARANCE, URINE CLOUDY (CLEAR); BACTERIA, URINE AUTO 3+ (NEGATIVE); BILIRUBIN, URINE AUTO NEGATIVE (NEGATIVE); BLOOD, URINE BLOOD 3+ (NEGATIVE); COLOR, URINE YELLOW (YELLOW); GLUCOSE, URINE (UA) AUTO NEGATIVE (NEGATIVE); KETONE, URINE AUTO NEGATIVE (NEGATIVE); LEUKOCYTE ESTERASE, URINE AUTO 3+ (NEGATIVE); MUCUS, URINE SMALL (NEGATIVE); NITRITE, URINE AUTO NEGATIVE (NEGATIVE); PROTEIN, URINE AUTO 1+ mg/dL (NEGATIVE); RBC, URINE AUTO 20 /HPF (0-3); SPECIFIC GRAVITY URINE AUTO 1.014 (1.002-1.035); SQUAMOUS EPITHELIAL CELL UR AU 1 /HPF (0-6); UROBILINOGEN, URINE AUTO 0.2 mg/dL (0.0-2.0); WBC, URINE AUTO TNTC /HPF (0-3)
== END ==
LOC: M LAB REF 18:40
PROVIDERS: ATTEND Nurse Practitioner Family
DX: N39.0 Urinary tract infection, site not specified (principal); R30.0 Dysuria

== ENCOUNTER 2020-11-08 19:18 | Emergency (ER) | payer MEDICAID ==
[~2020-11-08] VITALS: Ht 154.9 cm; Wt 54.5 kg
--- OUTSIDE RECORDS SUMMARY | 2020-11-08 19:24 | CCD ---
Author Organization Unknown Address [address] [place] [address] Phone [phone] Care Team Providers Care Anodizer Name Role Phone Sugar Powell Unavailable Unavailable Allergies Code Code System Name Reaction Severity Status Onset NKDA Medications Name Status Start Date Stop Date amoxicillin 875 mg tablet Completed 2019 aripiprazole 5 mg tablet Completed buprenorphine 2 mg-naloxone 0.5 mg sublingual film Completed 08/13/2020 buprenorphine 4 mg-naloxone 1 mg sublingual film Completed 08/13/2020 buprenorphine 8 mg-naloxone 2 mg sublingual film Completed 08/13/2020 buprenorphine 8 mg-naloxone 2 mg sublingual tablet Completed 08/13/2020 cholecalciferol (vitamin D3) 1,250 mcg (50,000 unit) capsule Act anali Not available escitalopram 5 mg tablet Completed fluconazole 150 mg tablet Completed 2019 fluoxetine 10 mg capsule Active Not alecia ilable fluoxetine 20 mg capsule Take 1 capsule every day by oral route in the morning for 30 days. Active Not available gabapentin 600 mg tablet Completed hydroxyzine HCl 25 mg tablet Completed 12/2019 hydroxyzine HCl 50 mg tablet Completed 12/2019 ibuprofen 800 mg tablet Completed 08/13/20 20 lorazepam 0.5 mg tablet Completed 08/13/20 20 metronidazole 500 mg tablet Completed 12/2019 Narcan 4 mg/actuation nasal spray Completed 08/13/2020 nitrofurantoin monohydrate/macrocrystals 100 mg capsule Active Not available omeprazole 40 mg capsule,delayed release Completed 08/13/2020 ondansetron 8 mg disintegrating tablet Completed 08/13/2020 ondansetron HCl 4 mg tablet Completed 12/2019 pantoprazole 40 mg tablet,delayed release Completed 08/13/2020 sucralfate 1 gram tablet Completed Problems Name Status Onset Date Source Vitamin D Deficiency Active 06/16/2013 History Irritable Bowel Syndrome Active 06/16/2013 History Abdominal Pain Active 06/16/2013 History Evaluation Procedure Active 06/16/2013 History Nausea and Vomiting Active 08/21/2013 History Emotional State Finding Active 08/07/2019 History Clinical Finding Active 08/07/2019 History Nicotine Dependence Active 11/09/2019 History Procedure by Method Active 11/09/2019 History Finding of General Energy Active 04/24/2020 Histor y Depressive Disorder Active 05/16/2020 History Patient Asked to Attend Active 05/22/2020 History Catatonia Active 05/29/2020 History Asthma Active History Finding of Esophagus Active History Procedures None recorded. Results Lab Results None recorded. Past Encounters 08/15/2020 Mixed Anxiety and Depressive Disorder Soraida Choi MD: [address] [place] [phone], Ph. 08/01/2020 Catatonia; Depressive Disorder Simran Magallanes [employer]LL SURGEON: [address] [place] [phone], Ph. Social History Tobacco Smoking Status Light Tobacco Smoker (10/14 PPD) Vaccine List None recorded. Plan of Care Reminders Provider Appointments None recorded. Lab None recorded. Referral None recorded. Procedures None recorded. Surgeries None recorded. Imaging None recorded. Vitals 08/15/2020 09:30AM TELE[facility] 30 Height Weight BMI 63 in 110 lbs 16 oz 19.7 kg/m2 04/24/2020 Height Weight Blood Pressure 63 in 102 lbs 2.08 oz 98/67 mm[Hg] 11/09/2019 Height Weight Blood Pressure 63 in 129 lbs 8.96 oz 101/62 mm[Hg] 08/07/2019 Height Weight Blood Pressure 63 in 106 lbs 4 oz 91/61 mm[Hg]
--- OUTSIDE RECORDS SUMMARY | 2020-11-08 19:24 | CCD ---
Author Organization Unknown Address [address] [place] [address] Phone [phone] Care Team Providers Care Bullard Machine Operator Name Role Phone Sugar Powell Unavailable Unavailable Allergies Code Code System Name Reaction Severity Status Onset NKDA Medications Name Status Start Date Stop Date amoxicillin 875 mg tablet Completed 2019 aripiprazole 5 mg tablet TAKE ONE TABLET BY MOUTH EVERY DAY Active Not available buprenorphine 2 mg-naloxone 0.5 mg sublingual film Completed 08/13/2020 buprenorphine 4 mg-naloxone 1 mg sublingual film Completed 08/13/2020 buprenorphine 8 mg-naloxone 2 mg subling ual film PLACE ONE FILM UNDER THE TONGUE EVERY DAY MAXIMUM DAILY DOSE 1 FILM Active Not available buprenorphine 8 mg-naloxone 2 mg sublingual tablet Completed 08/13/2020 cholecalciferol (vitamin D3) 1,250 mcg (50,000 unit) capsule Act anali Not available escitalopram 5 mg tablet Completed fluconazole 150 mg tablet Completed 2019 fluoxetine 10 mg capsule Active Not alecia ilable fluoxetine 20 mg capsule TAKE ONE CAPSULE BY MOUTH EVERY MORNING Active Not available gabapentin 400 mg capsule TAKE ONE CAPSULE BY MOUTH FOUR TIMES A DAY Active Not available gabapentin 600 mg tablet Completed 020 hydroxyzine HCl 25 mg tablet Completed 12/2019 [...] pantoprazole 40 mg tablet,delayed release Completed 08/13/2020 prazosin 1 mg capsule TAKE ONE CAPSULE BY MOUTH AT BEDTIME Active No t available quetiapine 200 mg tablet TAKE ONE TABLET BY MOUTH AT BEDTIME Active Not available sucralfate 1 gram tablet Completed 020 venlafaxine ER 75 mg capsule,extended re lease 24 hr TAKE ONE CAPSULE BY MOUTH EVERY DAY Active Not available Problems Name Status Onset Date Source Vitamin [...] History Procedures None recorded. Results Lab Results Date Name Specimen Result Interpretation Description Value Range Status Address 10/29/2020 SARS CoV 2 RdRp Gene, QL Probe, Respiratory Spec imen Nasopharyngeal Normal Sars-cov-2 negative negative Final [facility]: [address] [place] [address] Past Encounters 10/29/2020 Exposure to SARS-CoV-2 Sergey Rader MD: [address] [place] [phone], Ph. 08/15/2020 Mixed Anxiety and Depressive Disorder Soraida Choi MD: [address] [place] [phone], Ph. 08/01/2020 Catatonia; Depressive Disorder Simran Magallanes [employer] [employer]: [address] [place] [phone], Ph. Social History Tobacco Smoking Status Light [...]
--- OUTSIDE RECORDS SUMMARY | 2020-11-08 19:24 | CCD ---
Author Author [facility] Organization [facility] Address Unknown Phone Unavailable Care Team Providers Care Licensed Surveyor Name Role Phone Crystal Reynolds Unavailable Simran Magallanes Unavailable [phone] Oh Rader MD Unavailable Unavailable Oh Rader MD Unavailable Unavailable Oh Rader MD Unavailable Unavailable Oh Rader MD Unavailable Unavailable Oh Rader MD Unavailable Unavailable Oh Rader MD Unavailable Unavailable Oh Rader MD Unavailable Unavailable Oh Rader MD Unavailable Unavailable Oh Rader MD Unavailable Unavailable Oh Rader MD Unavailable Unavailable Oh Rader MD Unavailable Unavailable Oh Rader MD Unavailable Unavailable Oh Rader MD Unavailable Unavailable Oh Rader MD Unavailable Unavailable Oh Rader MD Unavailable Unavailable Oh Rader MD Unavailable Unavailable Oh Rader MD Unavailable Unavailable Oh Rader MD Unavailable Unavailable Oh Rader MD Unavailable Unavailable Oh Rader MD Unavailable Unavailable Oh Rader MD Unavailable Unavailable Oh Rader MD Unavailable Unavailable Oh Rader MD Unavailable Unavailable Oh Rader MD Unavailable Unavailable Oh Rader MD Unavailable Unavailable Oh Rader MD Unavailable Unavailable Oh Rader MD Unavailable Unavailable Oh Rader MD Unavailable Unavailable Oh Rader MD Unavailable Unavailable Oh Rader MD Unavailable Unavailable Oh Rader MD Unavailable Unavailable Oh Rader MD Unavailable Unavailable Oh Rader MD Unavailable Unavailable Oh Rader MD Unavailable Unavailable Oh Rader MD Unavailable Unavailable Oh Rader MD Unavailable Unavailable Oh Rader MD Unavailable Unavailable Oh Rader MD Unavailable Unavailable Oh Rader MD Unavailable Unavailable Oh Rader MD Unavailable Unavailable Oh Rader MD Unavailable Unavailable Oh Rader MD Unavailable Unavailable Oh Rader MD Unavailable Unavailable Oh Rader MD Unavailable Unavailable Oh Rader MD Unavailable Unavailable Oh Rader MD Unavailable Unavailable Oh Rader MD Unavailable Unavailable Oh Rader MD Unavailable Unavailable Oh Rader MD Unavailable Unavailable Oh Rader MD Unavailable Unavailable Oh Rader MD Unavailable Unavailable Oh Rader MD Unavailable Unavailable Oh Rader MD Unavailable Unavailable Oh Rader MD Unavailable Unavailable Oh Rader MD Unavailable Unavailable Oh Rader MD Unavailable Unavailable Oh Rader MD Unavailable Unavailable Oh Rader MD Unavailable Unavailable Oh Rader MD Unavailable Unavailable Oh Rader MD Unavailable Unavailable Oh Rader MD Unavailable Unavailable Oh Rader MD Unavailable Unavailable Oh Rader MD Unavailable Unavailable Oh Rader MD Unavailable Unavailable Oh Rader MD Unavailable Unavailable Oh Rader MD Unavailable Unavailable Oh Rader MD Unavailable Unavailable Oh Rader MD Unavailable Unavailable Oh Rader MD Unavailable Unavailable Oh Rader MD Unavailable Unavailable Oh Rader MD Unavailable Unavailable Oh Rader MD Unavailable Unavailable Oh Rader MD Unavailable Unavailable Oh Rader MD Unavailable Unavailable Oh Rader MD Unavailable Unavailable Oh Rader MD Unavailable Unavailable Oh Rader MD Unavailable Unavailable Oh Rader MD Unavailable Unavailable Oh Rader MD Unavailable Unavailable Oh Rader MD Unavailable Unavailable Oh Rader MD Unavailable Unavailable Oh Rader MD Unavailable Unavailable Oh Rader MD Unavailable Unavailable Oh Rader MD Unavailable Unavailable Oh Rader MD Unavailable Unavailable Oh Rader MD Unavailable Unavailable Oh Rader MD Unavailable Unavailable Oh Rader MD Unavailable Unavailable Oh Rader MD Unavailable Unavailable [place], 897 Unavailable Unavailable [facility] Unavailable [phone] [facility] Unavailable [phone] Andre, Sugar FIELD MANAGER FIELD MANAGER Unavailable Unavailable Andre, A Sugar FIELD MANAGER Unavailable Unavailable Andre, A Sugar FIELD MANAGER Unavailable Unavailable Andre, A Sugar FIELD MANAGER Unavailable Unavailable Andre, A Sugar FIELD MANAGER Unavailable Unavailable Andre, A Sugar FIELD MANAGER Unavailable Unavailable Andre, A Sugar FIELD MANAGER Unavailable Unavailable Anrde, A Sugar FIELD MANAGER Unavailable Unavailable Vernalis, A Sugar FIELD MANAGER Unavailable Unavailable Vernalis, A Sugar FIELD MANAGER Unavailable Unavailable Vernalis, A Sugar FIELD MANAGER Unavailable Unavailable Vernalis, A Sugar FIELD MANAGER Unavailable Unavailable Vernalis, A Sugar FIELD MANAGER Unavailable Unavailable Vernalis, A Sugar FIELD MANAGER Unavailable Unavailable Vernalis, A Sugar FIELD MANAGER Unavailable Unavailable Vernalis, A Sugar FIELD MANAGER Unavailable Unavailable Vernalis, A Sugar FIELD MANAGER Unavailable Unavailable Vernalis, A Sugar FIELD MANAGER Unavailable Unavailable Vernalis, A Sugar FIELD MANAGER Unavailable Unavailable Vernalis, A Sugar FIELD MANAGER Unavailable Unavailable Vernalis, A Sugar FIELD MANAGER Unavailable Unavailable Vernalis, A Sugar FIELD MANAGER Unavailable Unavailable Vernalis, A Sugar FIELD MANAGER Unavailable Unavailable Vernalis, A Sugar FIELD MANAGER Unavailable Unavailable Vernalis, A Sugar FIELD MANAGER Unavailable Unavailable Vernalis, A Sugar FIELD MANAGER Unavailable Unavailable Vernalis, A Sugar FIELD MANAGER Unavailable Unavailable Vernalis, A Sugar FIELD MANAGER Unavailable Unavailable Vernalis, A Sugar FIELD MANAGER Unavailable Unavailable Mike Duarte NP Unavailable Unavailable George Choi MD Unavailable Unavailable George Choi MD Unavailable Unavailable George Choi MD Unavailable Unavailable George Choi MD Unavailable Unavailable George Choi MD Unavailable Unavailable George Choi MD Unavailable Unavailable George Choi MD Unavailable Unavailable George Choi MD Unavailable Unavailable Re-disclosure Warning The records that you are about to access may contain information from federally-assisted alcohol or drug abuse programs. If such information is present, then the following federally mandated warning applies: This information has been disclosed to you from records protected by federal confidentiality rules (42 CFR part 2). The federal rules prohibit you from making any further disclosure of this information unless further disclosure is expressly permitted by the written consent of the person to whom it pertains or as otherwise permitted by 42 CFR part 2. A general authorization for the release of medical or other information is NOT sufficient for this purpose. The Federal rules restrict any use of the information to criminally investigate or prosecute any alcohol or drug abuse patient.The records that you are about to access may contain highly sensitive health information, the redisclosure of which is protected by Article 27-F of the [facility] Public Health law. If you continue you may have access to information: Regarding HIV / AIDS; Provided by facilities licensed or operated by the [facility] Office of Mental Health; or Provided by the [facility] Office for People With Developmental Disabilities. If such information is present, then the following [facility] mandated warning applies: This information has been disclosed to you from confidential records which are protected by state law. State law prohibits you from making any further disclosure of this information without the specific written consent of the person to whom it pertains, or as otherwise permitted by law. Any unauthorized further disclosure in violation of state law may result in a fine or [place] [facility] sentence or both. A general authorization for the release of medical or other information is NOT sufficient authorization for further disc losure. Allergies and Adverse Reactions Type Description Substance Reaction Status Data Source(s ) Propensity to adverse reactions to substance sertraline Sertraline 25 MG Oral Tablet [Zoloft] Active [facility] ([facility] Allergy to substance Allergy to substance Allergy to substance [place] ([facility]) Family History Family Member Name Family Member Gender Family Member Status Date o f Status Description Data Source(s) Unknown Unknown Problem [facility] ([facility]) PGM Dx age late 60s Unknown Unknown Problem [facility] ([facility]) Encounters Encounter Providers Location Date Indications Data Source(s ) Sergey Rader MD: [address] [place] [phone], Ph. Attender: Sergey Rader MD [facility] Medical 10/29/2020 12:00:00 AM EST [place] ([facility]) Soraida Choi MD: [address] [place] [address], Ph. Attender: Soraida Choi MD [facility] Medical 08/15/2020 12:00:00 AM EST [place] ([facility]) Soraida Choi MD: [address] [place] [address], Ph. Attender: Soraida Choi MD [facility] Medical 08/15/2020 12:00:00 AM EST [place] ([facility]) Outpatient Attender: TITI [facility] 08/06/2020 12:04:00 P M EDT [facility] Outpatient Attender: TITI WALLS FP 08/01/2020 11:04:00 A M EDT [facility] Simran Magallanes [facility]: [address] [place] [phone], Ph. Attender: Simran Magallanes [facility] Medical 08/01/2020 12:00:00 AM EDT [facility]) Simran Magallanes [facility]: [address] [place] [phone], Ph. Attender: Simran Magallanes [facility] Medical 08/01/2020 12:00:00 AM EDT [place] ([facility]) Simran Magallanes [facility]: [address] [place] [address], Ph. Attender: Simran Magallanes [facility] Medical 08/01/2020 12:00:00 AM EDT [facility]) Outpatient Attender: Sugar WALLS FP 07/28/2020 09:0 7:01 AM EDT [facility] Outpatient Attender: TITI ALFAROP FP 07/28/2020 09:07:01 A M EDT [facility] Outpatient Attender: Sugar ALFAROP FP 07/27/2020 04:1 1:02 PM EDT [facility] Outpatient Attender: TITI Powell FIELD MANAGER FP 07/27/2020 04:11:00 P M EDT [facility] Outpatient Attender: Sugar Andre FIELD MANAGER FP 07/25/2020 10:2 1:00 AM EDT [facility] Outpatient Attender: TITI Powell FIELD MANAGER FP 07/25/2020 12:02:05 A M EDT [facility] Outpatient Attender: TITI Powell FIELD MANAGER FP 07/24/2020 08:01:01 P M EDT [facility] Outpatient Attender: TITI Powell FIELD MANAGER FP 07/24/2020 03:58:02 P M EDT [facility] Outpatient Attender: TITI Powell FIELD MANAGER FP 07/24/2020 03:14:01 P M EDT [facility] Outpatient Attender: TITI Powell FIELD MANAGER FP 07/24/2020 10:35:01 A M EDT [facility] Outpatient Attender: TITI Powell FIELD MANAGER FP 07/18/2020 09:00:01 A M EDT [facility] Outpatient Attender: TITI Powell FIELD MANAGER FP 07/12/2020 08:01:08 P M EDT [facility] Outpatient Attender: Sugar ALFAROP FP 07/12/2020 01:3 3:01 PM EDT [facility] Outpatient Attender: TITI Powell FIELD MANAGER FP 07/12/2020 01:05:01 P M EDT [facility] Outpatient Attender: TITI Powell FIELD MANAGER FP 07/06/2020 12:02:06 A M EDT [facility] Outpatient Attender: TITI ALFAROP FP 07/05/2020 08:01:27 P M EDT [facility] Outpatient Attender: TITI ALFAROP FP 07/05/2020 10:57:00 A M EDT [facility] Outpatient Attender: TITI ALFAROP FP 06/27/2020 08:34:22 A M EDT [facility] Outpatient Attender: TITI Powell FIELD MANAGER FP 06/25/2020 08:01:01 P M EDT [facility] Outpatient Attender: TITI ALFAROP FP 06/25/2020 08:24:01 A M EDT [facility] Outpatient Attender: Sugar Powell FIELD MANAGER FP 06/18/2020 03:4 1:01 PM EDT [facility] Outpatient Attender: TITI Powell FIELD MANAGER FP 06/14/2020 08:01:04 P M EDT [facility] Outpatient Attender: TITI Powell FIELD MANAGER FP 06/07/2020 11:19:01 A M EDT [facility] Outpatient Attender: TITI Powell FIELD MANAGER FP 06/02/2020 08:01:[address] [facility] Outpatient Attender: TITI ALFRAOP FP 05/31/2020 02:39:[address] [facility] Outpatient Attender: TITI Powell FIELD MANAGER FP 05/30/2020 12:06:[address] [facility] Outpatient Attender: TITI Powell FIELD MANAGER FP 05/29/2020 04:20:[address] [facility]patient Attender: Sugar Powell FIELD MANAGER FP 05/29/2020 04:1 9:[address] [facility] Outpatient Attender: TITI ALFAROP FP 05/22/2020 03:46:[address] [facility] Outpatient Attender: TITI Powell FIELD MANAGER FP 05/22/2020 12:34:[address] [facility] Outpatient Attender: TITI ALFAROP FP 05/17/2020 12:02:15 A M EDT [facility] Outpatient Attender: TITI Powell FIELD MANAGER FP 05/16/2020 08:01:04 P M EDT [facility] Outpatient Attender: TITI Powell FIELD MANAGER FP 05/16/2020 10:56:02 A M EDT [facility] Outpatient Attender: TITI ALFAROP FP 05/09/2020 09:13:01 A M EDT [facility] Outpatient Attender: Sugar ALFAROP FP 05/07/2020 01:2 6:02 PM EDT [facility] Outpatient Attender: TITI ALFAROP FP 05/06/2020 10:50:00 A M EDT [facility] Outpatient Attender: TITI WALLS FP 05/01/2020 11:34:00 A M EDT [facility] Outpatient Attender: Sugar Andre WALLS FP 04/29/2020 03:0 3:02 PM EDT [facility] Outpatient Attender: Sugar Powell TITI FP 04/28/2020 04:5 7:01 AM EDT [facility] Outpatient Attender: TITI WALLS FP 04/28/2020 04:56:00 A M EDT [facility] Outpatient Attender: Sugar Andre WALLS FP 04/28/2020 04:5 6:00 AM EDT [facility] Outpatient Attender: Sugar Andre WALLS FP 04/24/2020 11:0 7:00 PM EDT [facility] Outpatient Attender: TITI WALLS FP 04/24/2020 11:07:00 P M EDT [facility] Outpatient Attender: TITI WALLS FP 04/24/2020 02:48:00 P M EDT [facility] Outpatient Attender: TITI WALLS FP 04/24/2020 12:00:07 P M EDT [facility] Outpatient Attender: TITI WALLS FP 04/24/2020 11:15:01 A M EDT [facility] Outpatient Attender: TITI WALLS FP 04/24/2020 09:28:00 A M EDT [facility] Outpatient Attender: TITI WALLS FP 04/23/2020 02:16:01 P M EDT [facility] Outpatient Attender: TITI AWLLS FP 04/22/2020 09:04:01 A M EDT [facility] Outpatient Attender: Shakeel Marquez 03/29/2020 11:00:00 AM EDT - 03/29/2020 11:00:00 AM EDT [facility] ([facility]) Attender: Shakeel Duarte NP 03/29/2020 12:00:00 AM EDT [facility] ([facility] Outpatient Attender: TITI WALLS FP 03/19/2020 07:39:23 P M EDT [facility] Telemed [facility] 10:00:00 AM EDT - 03/15/2020 10:00:00 AM EDT [facility] ([facility]) Attender: Shakeel Duarte NP 03/15/2020 12:00:00 AM EDT [facility] ([facility]) [id number]"Psychotherapy Attender: Crystal Trujillopaige [facility] 03/14/2020 02:15:00 AM EDT - 03/14/2020 02:15:00 AM EDT [facility] ([facility]) Attender: Crystal Reynolds 03/14/2020 12:00:00 A M EDT [facility] ([facility]) [facility] Telemed Diag Eval no med Attender: Crystal [facility] 02/22/2020 09:00:00 AM EDT - 02/22/2020 09:00:00 AM EDT [facility] ([facility]) Attender: Crystal Ronniemillie 02/22/2020 12:00:00 A M EDT [facility] ([facility]) [facility] Telemed Diag Eval no med Attender: Crystal [facility] 02/19/2020 01:00:00 AM EDT - 02/19/2020 01:00:00 AM EDT [facility] ([facility]) [facility] 12:00:00 A M EDT [facility] ([facility]) [id number]"Psychotherapy Attender: [facility] 02/02/2020 09:00:00 AM EDT - 02/02/2020 09:00:00 AM EDT [facility] ([facility]) Attender: [facility] 12:00:00 AM EDT [facility] ([facility]) Outpatient Attender: TITI MCDONALD 12/27/2019 01:24:00 P M EDT [facility] Outpatient Referrer: [address] [place] 12/14/2019 02:01:00 PM [facility] Outpatient Attender: Sugar WALLS FP 12/08/2019 05:0 8:59 PM [facility] Outpatient Referrer: [address]97 [place] 11/21/2019 01:20:00 PM [facility] Outpatient Attender: Sugar WALLS FP 11/09/2019 02:5 1:02 PM [facility] Outpatient Attender: TITI WALLS FP 11/09/2019 02:24:00 P M [facility] Outpatient Attender: TITI WALLS FP 11/09/2019 02:23:00 P [facility] Outpatient Attender: TITI WALLS FP 11/09/2019 11:22:11 A M [facility] Outpatient Attender: Sugar WALLS FP 11/09/2019 11:2 1:22 AM [facility] Outpatient Attender: TITI WALLS FP 11/09/2019 11:20:29 A M [facility] Outpatient Attender: TITI WALLS FP 11/09/2019 11:19:47 A M [facility] Outpatient Attender: Sugar WALLS FP 10/29/2019 04:1 3:01 PM [facility] Outpatient Attender: TITI WALLS FP 10/23/2019 02:16:01 P M [facility] Outpatient Attender: TITI WALLS FP 10/19/2019 10:07:00 A M [facility] Outpatient Attender: TITI WALLS FP 10/10/2019 11:45:01 A M [facility] Outpatient Attender: Sugar WALLS FP 10/10/2019 11:4 4:01 AM [facility] Outpatient Attender: Sugar WALLS FP 09/22/2019 02:2 9:02 PM [facility] Functional Status Medications Medication Brand Name Start Date Product Form Dose Route Admi nistrative Instructions Pharmacy Instructions Status Indications Reaction Description Data Source(s) 8-2 mg 10/29/2020 12:00:00 AM EST film 14 PLACE ONE FILM UNDER THE TONGUE EVERY DAY * MAXIMUM DAILY DOSE = 1 PLACE ONE FILM UNDER THE TONGUE EVERY DA Y * MAXIMUM DAILY DOSE = 1 SOLD: 10/29/2020 [facility] 8-2 mg 10/15/2020 12:00:00 AM EST film 14 PLACE ONE FILM UNDER THE TONGUE EVERY DAY, MAXIMUM DAILY DOSE = [address] ONE FILM UNDER THE TONGUE EVERY DAY, MAXIMUM DAILY DOSE = 1 FILM SOLD: 10/15/2020 [facility] 75 mg 10/01/2020 12:00:00 AM EST capsule,extended releas e 24hr 14 TAKE ONE CAPSULE BY MOUTH EVERY DAY TAKE ONE CAPSULE BY MOUTH EVERY DAY SOLD: 10/09/2020 [facility] 5 mg 10/01/2020 12:00:00 AM EST tablet 14 TAKE ONE TABLET BY MOUTH EVERY DAY TAKE ONE TABLET BY MOUTH EVERY DAY SOLD: 10/09/2020 [facility] quetiapine 200 MG Oral Tablet QUETIAPINE FUMARATE 10/01/2020 12: 00:00 AM EST tablet 14 TAKE ONE TABLET BY MOUTH AT BEDT HENNY TAKE ONE TABLET BY MOUTH AT BEDTIME SOLD: 10/09/2020 [facility] 8-2 mg 10/01/2020 12:00:00 AM EST film 14 PLACE ONE FILM UNDER THE TONGUE EVERY DAY MAXIMUM DAILY DOSE = [address] ONE FILM UNDER THE TONGUE EVERY DA Y MAXIMUM DAILY DOSE = 1 FILM SOLD: 10/01/2020 [facility] 400 mg 10/01/2020 12:00:00 AM EST capsule 56 TAKE ONE CAPSULE BY MOUTH FOUR TIMES A DAY TAKE ONE CAPSULE BY MOUTH FOUR TIMES A DAY SOLD: 10/09/2020 [facility] 1 mg 10/01/2020 12:00:00 AM EST capsule 14 TAKE ONE CAPSULE BY MOUTH AT BEDTIME TAKE ONE CAPSULE BY MOUTH AT BEDTIME SOLD: 10/09/2020 [facility] 8-2 mg 09/02/2020 12:00:00 AM EST film 14 PLACE ONE FILM UNDER THE TONGUE EVERY DAY, MAXIMUM DAILY DOSE = [address] ONE FILM UNDER THE TONGUE EVERY DAY, MAXIMUM DAILY DOSE = 1 FILM SOLD: 09/03/2020 [facility] 8-2 mg 08/21/2020 12:00:00 AM EST film 14 PLACE ONE FILM UNDER THE TONGUE EVERY DAY MAXIMUM DAILY DOSE = [address] ONE FILM UNDER THE TONGUE EVERY DA Y MAXIMUM DAILY DOSE = 1 FILM SOLD: 08/21/2020 [facility] 20 mg 08/15/2020 12:00:00 AM EST capsule 30 TAKE ONE CAPSULE BY MOUTH EVERY MORNING TAKE ONE CAPSULE BY MOUTH EVERY MORNING SOLD: 10/01/2020 [facility] 20 mg 08/15/2020 12:00:00 AM EST capsule 30 TAKE ONE CAPSULE BY MOUTH EVERY MORNING TAKE ONE CAPSULE BY MOUTH EVERY MORNING SOLD: 08/17/2020 [facility] 8-2 mg 08/07/2020 12:00:00 AM EDT film 14 DISSOLVE 1 FILM STRIP UNDER THE TONGUE ONCE DAILY , MAXIMUM DAILY DOSE = 1 FILM STRIP DISSOLVE 1 FILM STRIP UNDER THE TONGUE ONCE DAILY , MAXIMUM DAILY DOSE = 1 FILM STRIP SOLD: 08/08/2020 [facility] 8-2 mg 07/25/2020 12:00:00 AM EDT film 14 PLACE ONE FILM UNDER THE TONGUE EVERY DAY, MAXIMUM DAILY DOSE = [address] ONE FILM UNDER THE TONGUE EVERY DAY, MAXIMUM DAILY DOSE = 1 FILM SOLD: 07/25/2020 [facility] 100 mg 07/24/2020 12:00:00 AM EDT capsule 10 TAKE ONE CAPSULE BY MOUTH EVERY DAY FOR 5 DAYS TAKE ONE CAPSULE BY MOUTH EVERY DAY FOR 5 DAYS SOLD: 020 [facility] 10 mg 07/18/2020 12:00:00 AM EDT capsule 30 TAKE ONE CAPSULE BY MOUTH EVERY DAY TAKE ONE CAPSULE BY MOUTH EVERY DAY SOLD: 07/21/2020 [facility] 1,250 mcg (50,000 unit) 05/23/2020 12:00:00 AM EDT capsule 4 TAKE 1 CAPSULE BY MOUTH EVERY WEEK FOR 12 WEEKS, THEN CHANGE TO 1,000 UNIT TABLET DAILY THEREAFTER TAKE 1 CAPSULE BY MOUTH EVERY WEEK FOR 1 2 WEEKS, THEN CHANGE TO 1,000 UNIT TABLET DAILY THEREAFTER SOLD: 05/30/2020 [facility] 875 mg 05/01/2020 12:00:00 AM EDT tablet 20 TAKE ONE TABLET BY MOUTH EVERY 12 HOURS FOR 10 DAYS TAKE ONE TABLET BY MOUTH EVERY 12 HOURS FOR 10 DAYS SO LD: 05/01/2020 [facility] 800 mg 05/01/2020 12:00:00 AM EDT tablet 21 TAKE ONE TABLET BY MOUTH THREE TIMES A DAY FOR 7 DAYS TAKE ONE TABLET BY MOUTH THREE TIMES A DAY FOR 7 DAYS SOLD: 05/01/2020 [facility] 0.5 mg 04/22/2020 12:00:00 AM EDT tablet 14 TAKE ONE TABLET BY MOUTH TWICE A DAY FOR CATATONIA, MAXIMUM DAILY DOSE = TWO TABLETS TAKE ONE TABLET BY MOUTH TWICE A DAY FOR CATATONIA, MAXIMUM DAILY DOSE = TWO TABLETS SOLD: 04/22/2020 [facility] 10 mg 04/22/2020 12:00:00 AM EDT capsule 7 TAKE ONE CAPSULE BY MOUTH EVERY DAY FOR MOOD TAKE ONE CAPSULE BY MOUTH EVERY DAY FOR MOOD SOLD: 04/22/2020 [facility] 500 mg 03/20/2020 12:00:00 AM EDT tablet 14 TAKE ONE TABLET BY MOUTH TWICE A DAY FOR 7 DAYS TAKE ONE TABLET BY MOUTH TWICE A DAY FOR 7 DAYS SOLD: 03/20/2020 [facility] 150 mg 03/20/2020 12:00:00 AM EDT tablet 2 TAKE ONE TABLET BY MOUTH ONCE, MAY REPEAT IN 48 HOURS TAKE ONE TABLET BY MOUTH ONCE, MAY REPEAT IN 48 HOURS SOLD: 03/20/2020 [facility] 5 mg 03/16/2020 12:00:00 AM EDT tablet 15 TAKE 1/2 TABLET BY MOUTH ONCE DAILY TAKE 1/2 TABLET BY MOUTH ONCE DAILY SOLD: 03/20/2020 [facility] aripiprazole 5 MG Oral Tablet aripiprazole 03/15/2020 12:00:00 AM EDT 5 mg by mouth completed [id number] aripiprazole by mouth [id number] 02/202004/14/2020 once a day 30 5 mg tablet [id number] [facility] [id number] Psychiatry [facility] ([facility] 600 mg 02/26/2020 12:00:00 AM EDT tablet 90 TAKE ONE TABLET BY MOUTH THREE TIMES A DAY (AFTER TITRATION) TAKE ONE TABLET BY MOUTH THREE TIMES A D AY (AFTER TITRATION) SOLD: 03/15/2020 [facility] Escitalopram 5 MG Oral Tablet ESCITALOPRAM OXALATE 01/12/2020 12 :00:00 AM EDT tablet 30 TAKE ONE TABLET BY MOUTH EVERY D AY TAKE ONE TABLET BY MOUTH EVERY DAY SOLD: 01/15/2020 [facility] 50 mg 01/12/2020 12:00:00 AM EDT tablet 60 TAKE ONE TABLET BY MOUTH TWICE A DAY, NEEDED TAKE ONE TABLET BY MOUTH TWICE A DAY, NEEDED SOLD: 2019 [facility] 8-2 mg 12/27/2019 12:00:00 AM EDT tablet, sublingual 6 DISSOLVE 1 TABLET UNDER THE TONGUE ONCE DAILY , MAXIMUM DAILY DOSE = 1 TABLET DISSOLVE 1 TABLET UNDER THE TONGUE ONCE DAILY , MAXIMUM DAILY DOSE = 1 TABLET SOLD: 12/27/2019 [facility] Escitalopram 5 MG Oral Tablet ESCITALOPRAM OXALATE 12/07/2019 12 :00:00 AM EST tablet 30 TAKE ONE TABLET BY MOUTH ONCE DA TARI TAKE ONE TABLET BY MOUTH ONCE DAILY SOLD: 12/07/2019 [facility] 50 mg 12/07/2019 12:00:00 AM EST tablet 60 TAKE ONE TABLET BY MOUTH TWICE A DAY NEEDED TAKE ONE TABLET BY MOUTH TWICE A DAY NEEDED SOLD: 12/07/2019 [facility] 8-2 mg 12/07/2019 12:00:00 AM EST film 21 PLACE 1 FILM STRIP UNDER THE TONGUE ONCE DAILY , MAXIMUM DAILY DOSE = [address] 1 FILM STRIP UNDER THE TONGUE ONCE DAILY , MAXIMUM DAILY DOSE = 1 FILM STRIP SOLD: 12/07/2019 [facility] 8-2 mg 11/22/2019 12:00:00 AM EST film 14 PLACE ONE FILM UNDER THE TONGUE EVERY DAY, MAXIMUM DAILY DOSE = [address] ONE FILM UNDER THE TONGUE EVERY DAY, MAXIMUM DAILY DOSE = 1 FILM SOLD: 11/22/2019 [facility] 1 gram 11/10/2019 12:00:00 AM EST tablet 100 TAKE ONE TABLET BY MOUTH 1 HOUR BEFORE MEALS AND AT BEDTIME - MAY DISSOLVE TABLET IN 5-10ML WATER TO EASE SWALLOWING TAKE ONE TABLET BY MOUTH 1 HOUR BEFORE M EALS AND AT BEDTIME - MAY DISSOLVE TABLET IN 5-10ML WATER TO EASE SWALLOWING SOLD: 11/10/2019 [facility] 40 mg 11/10/2019 12:00:00 AM EST tablet,delayed release (DR/EC) 30 TAKE ONE TABLET BY MOUTH EVERY DAY TAKE ONE TABLET BY MOUTH EVERY DAY SOLD: 11/10/2019 [facility] 8-2 mg 11/08/2019 12:00:00 AM EST film 14 PLACE ONE FILM UNDER THE TONGUE EVERY DAY MAXIMUM DAILY DOSE = 1 PLACE ONE FILM UNDER THE TONGUE EVERY DA Y MAXIMUM DAILY DOSE = 1 SOLD: 11/08/2019 [facility] 50 mg 11/08/2019 12:00:00 AM EST tablet 60 TAKE ONE TABLET BY MOUTH TWICE A DAY NEEDED TAKE ONE TABLET BY MOUTH TWICE A DAY NEEDED SOLD: 11/08/2019 [facility] 8-2 mg 11/01/2019 12:00:00 AM EST film 7 PLACE ONE FILM UNDER THE TONGUE EVERY DAY MAXIMUM DAILY DOSE = [address] ONE FILM UNDER THE TONGUE EVERY DA Y MAXIMUM DAILY DOSE = 1 FILM SOLD: 11/01/2019 [facility] Escitalopram 5 MG Oral Tablet ESCITALOPRAM OXALATE 10/25/2019 12 :00:00 AM EST tablet 30 TAKE ONE TABLET BY MOUTH EVERY D AY TAKE ONE TABLET BY MOUTH EVERY DAY SOLD: 11/01/2019 [facility] 8-2 mg 10/24/2019 12:00:00 AM EST film 7 PLACE ONE FILM UNDER THE TONGUE EVERY DAY MAXIMUM DAILY DOSE = [address] ONE FILM UNDER THE TONGUE EVERY DA Y MAXIMUM DAILY DOSE = 1 FILM SOLD: 10/24/2019 [facility] 8-2 mg 10/20/2019 12:00:00 AM EST film 4 PLACE ONE FILM UNDER THE TONGUE EVERY DAY, MAXIMUM DAILY DOSE = [address] ONE FILM UNDER THE TONGUE EVERY DAY, MAXIMUM DAILY DOSE = 1 FILM SOLD: 10/21/2019 [facility] 8-2 mg 10/18/2019 12:00:00 AM EST film 2 PLACE ONE FILM UNDER THE TONGUE EVERY DAY, MAXIMUM DAILY DOSE = [address] ONE FILM UNDER THE TONGUE EVERY DAY, MAXIMUM DAILY DOSE = 1 FILM SOLD: 10/19/2019 [facility] 8-2 mg 10/16/2019 12:00:00 AM EST film 2 PLACE ONE FILM UNDER THE TONGUE EVERY DAY MAXIMUM DAILY DOSE = [address] ONE FILM UNDER THE TONGUE EVERY DA Y MAXIMUM DAILY DOSE = 1 FILM SOLD: 10/16/2019 [facility] 8-2 mg 10/14/2019 12:00:00 AM EST film 2 PLACE ONE FILM UNDER THE TONGUE EVERY DAY, MAXIMUM DAILY DOSE = [address] ONE FILM UNDER THE TONGUE EVERY DAY, MAXIMUM DAILY DOSE = 1 FILM SOLD: 10/14/2019 [facility] 50 mg 10/14/2019 12:00:00 AM EST tablet 60 TAKE ONE TABLET BY MOUTH TWICE A DAY NEEDED TAKE ONE TABLET BY MOUTH TWICE A DAY NEEDED SOLD: 10/14/2019 [facility] 4-1 mg 10/11/2019 12:00:00 AM EST film 4 PLACE ONE FILM UNDER THE TONGUE EVERY DAY, MAXIMUM DAILY DOSE = [address] ONE FILM UNDER THE TONGUE EVERY DAY, MAXIMUM DAILY DOSE = 1 FILM SOLD: 10/11/2019 [facility] 2-0.5 mg 10/10/2019 12:00:00 AM EST film 4 PLACE ONE FILM UNDER THE TONGUE EVERY DAY, MAXIMUM DAILY DOSE = [address] ONE FILM UNDER THE TONGUE EVERY DAY, MAXIMUM DAILY DOSE = 1 FILM SOLD: 10/10/2019 [facility] 8 mg 10/09/2019 12:00:00 AM EST tablet,disintegrating 1 2 DISSOLVE ONE TABLET ON TONGUE FOUR TIMES A DAY FOR 3 DAYS DISSOLVE ONE TABLET ON TONGUE FOUR TIMES A DAY FOR 3 DAYS SOLD: 10/09/2019 [facility] 4-1 mg 10/07/2019 12:00:00 AM EST film 4 DISSOLVE 1 FILM STRIP UNDER THE TONGUE ONCE DAILY , MAXIMUM DAILY DOSE = 1 FILM STRIP DISSOLVE 1 FILM STRIP UNDER THE TONGUE ONCE DAILY , MAXIMUM DAILY DOSE = 1 FILM STRIP SOLD: 10/07/2019 [facility] 2-0.5 mg 10/06/2019 12:00:00 AM EST film 3 DISSOLVE 1 FILM STRIP UNDER THE TONGUE ONCE DAILY , MAXIMUM DAILY DOSE = 1 FILM STRIP DISSOLVE 1 FILM STRIP UNDER THE TONGUE ONCE DAILY , MAXIMUM DAILY DOSE = 1 FILM STRIP SOLD: 10/07/2019 [facility] 4-1 mg 10/03/2019 12:00:00 AM EST film 4 PLACE ONE FILM UNDER THE TONGUE EVERY DAY, MAXIMUM DAILY DOSE = [address] ONE FILM UNDER THE TONGUE EVERY DAY, MAXIMUM DAILY DOSE = 1 FILM SOLD: 10/03/2019 [facility] 2-0.5 mg 10/02/2019 12:00:00 AM EST film 3 PLACE ONE FILM UNDER THE TONGUE EVERY DAY, MAXIMUM DAILY DOSE = [address] ONE FILM UNDER THE TONGUE EVERY DAY, MAXIMUM DAILY DOSE = 1 FILM SOLD: 10/03/2019 [facility] 25 mg 10/01/2019 12:00:00 AM EST tablet 84 TAKE ONE TABLET BY MOUTH FOUR TIMES A DAY NEEDED TAKE ONE TABLET BY MOUTH FOUR TIMES A DAY NEEDED SO LD: 10/01/2019 [facility] Buprenorphine 2 MG / Naloxone 0.5 MG Oral Strip 2-0.5 mg BUPRENORPHINE HCL/NALOXONE HCL 09/29/2019 12:00:00 AM EST film 3 PLACE ONE FILM UNDER THE TONGUE EVERY DAY, MAXIMUM DAILY DOSE = [address] ONE FILM UNDER THE TONGUE EVERY DAY, MAXIMUM DAILY DOSE = 1 FILM SOLD: 09/29/2019 [facility] 4-1 mg 09/29/2019 12:00:00 AM EST film 4 PLACE ONE FILM UNDER THE TONGUE EVERY DAY, MAXIMUM DAILY DOSE = [address] ONE FILM UNDER THE TONGUE EVERY DAY, MAXIMUM DAILY DOSE = 1 FILM SOLD: 09/29/2019 [facility] 4-1 mg 09/26/2019 12:00:00 AM EST film 3 DISSOLVE 1 FILM STRIP UNDER THE TONGUE ONCE DAILY , MAXIMUM DAILY DOSE = 1 FILM STRIP DISSOLVE 1 FILM STRIP UNDER THE TONGUE ONCE DAILY , MAXIMUM DAILY DOSE = 1 FILM STRIP SOLD: 09/26/2019 [facility] 2-0.5 mg 09/23/2019 12:00:00 AM EST film 5 PLACE ONE FILM UNDER THE TONGUE EVERY DAY MAXIMUM DAILY DOSE = [address] ONE FILM UNDER THE TONGUE EVERY DA Y MAXIMUM DAILY DOSE = 1 FILM SOLD: 09/23/2019 [facility] 25 mg 09/22/2019 12:00:00 AM EST tablet 30 TAKE ONE TABLET BY MOUTH THREE TIMES A DAY NEEDED TAKE ONE TABLET BY MOUTH THREE TIMES A DAY NEEDED S OLD: 09/23/2019 [facility] Escitalopram 5 MG Oral Tablet ESCITALOPRAM OXALATE 09/16/2019 12 :00:00 AM EST tablet 30 TAKE ONE TABLET BY MOUTH EVERY D AY TAKE ONE TABLET BY MOUTH EVERY DAY SOLD: 09/20/2019 [facility] 2-0.5 mg 09/16/2019 12:00:00 AM EST film 7 PLACE ONE FILM UNDER THE TONGUE EVERY DAY MAXIMUM DAILY DOSE = [address] ONE FILM UNDER THE TONGUE EVERY DA Y MAXIMUM DAILY DOSE = 1 FILM SOLD: 09/16/2019 [facility] 4 mg/actuation 09/12/2019 12:00:00 AM EST spray,non-aerosol 2 SPRAY 1 SPRAY INTO NOSTRIL(S) IMMEDIATELY SPRAY 1 SPRAY INTO NOSTRIL(S) IMMEDIATELY SOLD: 09/12/2019 [facility] 2-0.5 mg 09/12/2019 12:00:00 AM EST film 4 DISSOLVE 1 FILM STRIP UNDER THE TONGUE ONCE DAILY , MAXIMUM DAILY DOSE = 1 FILM STRIP (LOT [id number]) DISSOLVE 1 FILM STRIP UNDER THE TONGUE ONCE DAILY , MAXIMUM DAILY DOSE = 1 FILM STRIP (LOT [id number]) SOLD: 09/12/2019 [facility] Escitalopram 5 MG Oral Tablet escitalopram 5 mg tablet escit alopram 5 mg tablet completed escitalopram 5 MG Oral Tablet [place] ([facility]) Ibuprofen 800 MG Oral Tablet ibuprofen 800 mg tablet ibuprofen 8 00 mg tablet completed ibuprofen 800 MG Oral Tablet [facility]) Ondansetron 4 MG Oral Tablet ondansetron HCl 4 mg tabl et ondansetron HCl 4 mg tablet completed ondansetron 4 M G Oral Tablet [facility]) Buprenorphine 8 MG / Naloxone 2 MG Subli ngual Tablet buprenorphine 8 mg-naloxone 2 mg sublingual tablet buprenorphine 8 mg-naloxone 2 mg sublingual tablet completed buprenorphine 8 MG / n aloxone 2 MG Sublingual Tablet [place] [facility]) Hydroxyzine Hydrochloride 25 MG Oral Tablet hydroxyzin e HCl 25 mg tablet hydroxyzine HCl 25 mg tablet completed hydroxyzine hydrochloride 25 MG Oral Tablet [place] [facility]) Buprenorphine 2 MG / Naloxone 0.5 MG Ora l Strip buprenorphine 2 mg-naloxone 0.5 mg sublingual film buprenorphine 2 mg-naloxone 0.5 mg sublingual film completed buprenorphine 2 MG / naloxon e 0.5 MG Sublingual Film [place] [facility]) Lorazepam 0.5 MG Oral Tablet lorazepam 0.5 mg tablet lorazepam 0 .5 mg tablet completed lorazepam 0.5 MG Oral Tablet [place] [facility]) pantoprazole 40 MG Delayed Release Oral Tablet pantoprazole 40 mg tablet,delayed release pantoprazole 40 mg tablet,delayed release completed pantoprazole 40 MG Delayed Release Oral Tablet [place] [facility]) gabapentin 600 MG Oral Tablet gabapentin 600 mg tablet gabap entin 600 mg tablet completed gabapentin 600 MG Oral Tablet [place] [facility]) Ondansetron 8 MG Disintegrating Oral Tab let ondansetron 8 mg disintegrating tablet ondansetron 8 mg disintegrating tablet completed ondansetron 8 MG Disintegrating Oral Tablet [place] [facility]) Narcan 4 mg/actuation nasal spray [id number] completed naloxone hydrochloride 40 MG/ML Nasal [place] [Narcan] [place] [facility]) Omeprazole 40 MG Delayed Release Oral Ca psule omeprazole 40 mg capsule,delayed release omeprazole 40 mg capsule,delayed release completed omeprazole 40 MG Delayed Release Oral Capsule [place] ([facility]) Metronidazole 500 MG Oral Tablet metronidazole 500 mg tablet metronidazole 500 mg tablet completed metronidazol e 500 MG Oral Tablet [place] [facility]) Hydroxyzine Hydrochloride 50 MG Oral Tablet hydroxyzin e HCl 50 mg tablet hydroxyzine HCl 50 mg tablet completed hydroxyzine hydrochloride 50 MG Oral Tablet [place] [facility]) aripiprazole 5 MG Oral Tablet aripiprazole 5 mg tablet aripi prazole 5 mg tablet completed aripiprazole 5 MG Oral Tablet [place] ([facility]) Buprenorphine 8 MG / Naloxone 2 MG Oral Strip buprenorphine 8 mg-naloxone 2 mg sublingual film buprenorphine 8 mg-naloxone 2 mg sublingual film completed buprenorphine 8 MG / naloxone 2 MG Sublingual Film [place] [facility]) Buprenorphine 4 MG / Naloxone 1 MG Oral Strip buprenorphine 4 mg-naloxone 1 mg sublingual film buprenorphine 4 mg-naloxone 1 mg sublingual film completed buprenorphine 4 MG / naloxone 1 MG Sublingual Film [place] ([facility]) Buprenorphine 2 MG / Naloxone 0.5 MG Ora l Strip buprenorphine 2 mg-naloxone 0.5 mg sublingual film buprenorphine 2 mg-naloxone 0.5 mg sublingual film completed buprenorphine 2 MG / naloxon e 0.5 MG Sublingual Film [place] [facility]) Sucralfate 1000 MG Oral Tablet sucralfate 1 gram table t sucralfate 1 gram tablet completed sucralfate 1000 MG Oral Tablet [place] [facility]) Amoxicillin 875 MG Oral Tablet amoxicillin 875 mg tabl et amoxicillin 875 mg tablet completed amoxicillin 875 MG Oral Tablet [facility]) Escitalopram 5 MG Oral Tablet escitalopram 5 mg tablet escit alopram 5 mg tablet completed escitalopram 5 MG Oral Tablet [facility]) Hydroxyzine Hydrochloride 50 MG Oral Tablet hydroxyzin e HCl 50 mg tablet hydroxyzine HCl 50 mg tablet completed hydroxyzine hydrochloride 50 MG Oral Tablet [facility]) pantoprazole 40 MG Delayed Release Oral Tablet pantoprazole 40 mg tablet,delayed release pantoprazole 40 mg tablet,delayed release completed pantoprazole 40 MG Delayed Release Oral Tablet [place] ([facility]) Amoxicillin 875 MG Oral Tablet amoxicillin 875 mg tabl et amoxicillin 875 mg tablet completed amoxicillin 875 MG Oral Tablet [place] ([facility]) gabapentin 600 MG Oral Tablet gabapentin 600 mg tablet gabap entin 600 mg tablet completed gabapentin 600 MG Oral Tablet [place] [facility]) Ibuprofen 800 MG Oral Tablet ibuprofen 800 mg tablet ibuprofen 8 00 mg tablet completed ibuprofen 800 MG Oral Tablet [facility]) Fluconazole 150 MG Oral Tablet fluconazole 150 mg tabl et fluconazole 150 mg tablet completed fluconazole 150 MG Oral Tablet [place] ([facility]) Metronidazole 500 MG Oral Tablet metronidazole 500 mg tablet metronidazole 500 mg tablet completed metronidazol e 500 MG Oral Tablet [facility]) Narcan 4 mg/actuation nasal spray [id number] completed naloxone hydrochloride 40 MG/ML Nasal [place] [Narcan] [facility]) Omeprazole 40 MG Delayed Release Oral Ca psule omeprazole 40 mg capsule,delayed release omeprazole 40 mg capsule,delayed release completed omeprazole 40 MG Delayed Release Oral Capsule [place] ([facility]) Buprenorphine 8 MG / Naloxone 2 MG Subli ngual Tablet buprenorphine 8 mg-naloxone 2 mg sublingual tablet buprenorphine 8 mg-naloxone 2 mg sublingual tablet completed buprenorphine 8 MG / n aloxone 2 MG Sublingual Tablet [facility]) Hydroxyzine Hydrochloride 25 MG Oral Tablet hydroxyzin e HCl 25 mg tablet hydroxyzine HCl 25 mg tablet completed hydroxyzine hydrochloride 25 MG Oral Tablet [facility]) Lorazepam 0.5 MG Oral Tablet lorazepam 0.5 mg tablet lorazepam 0 .5 mg tablet completed lorazepam 0.5 MG Oral Tablet [place] ([facility]) Ondansetron 4 MG Oral Tablet ondansetron HCl 4 mg tabl et ondansetron HCl 4 mg tablet completed ondansetron 4 M G Oral Tablet [facility]) Buprenorphine 4 MG / Naloxone 1 MG Oral Strip buprenorphine 4 mg-naloxone 1 mg sublingual film buprenorphine 4 mg-naloxone 1 mg sublingual film completed buprenorphine 4 MG / naloxone 1 MG Sublingual Film [facility]) Fluconazole 150 MG Oral Tablet fluconazole 150 mg tabl et fluconazole 150 mg tablet completed fluconazole 150 MG Oral Tablet [place] [facility]) Ondansetron 8 MG Disintegrating Oral Tab let ondansetron 8 mg disintegrating tablet ondansetron 8 mg disintegrating tablet completed ondansetron 8 MG Disintegrating Oral Tablet [place] ([facility]) Sucralfate 1000 MG Oral Tablet sucralfate 1 gram table t sucralfate 1 gram tablet completed sucralfate 1000 MG Oral Tablet [place] ([facility]) Insurance Providers Payer name Policy type / Coverage type Policy ID Covered republican ID Covered republican's relationship to cohen Policy [place] Plan Information PRINCE [id number] SP [id number] [facility] [id number] SP [id number] Medicaid S [id number] S [id number] Managed Care - [facility] P [id number] S [id number] Medicaid S [id number] [employer] COMMUNITY [employer]AN MCDHMO [id number] SP [id number] [facility]) O [id number] S [id number] [employer] COMMUNITY PLAN MCDHMO [id number] SP [id number] Managed Care - [facility] Community Plan P [id number] S [id number] Managed Care - [facility] Community Plan S [id number] S [id number] Medicaid O [id number] S [id number] Self Pay P [id number] S [id number] [place] Plan P [id number] P [id number] [employer] COMMUNITY PLAN MCDHMO [id number] SP [id number] [facility] COMMUNITY [facility]AN MCDHMO [id number] SP [id number] [facility] Flori/MCR Medigap Part B [id number] Self [id number] [employer] BCBS Medigap Part B [id number] Self [id number] [facility] [place] [facility] Maintenance Organization (HMO) [id number] Family Dependent [id number] UN COMMUNITY PLAN MCDHMO [id number] SP [id number] [facility] [place] [facility] (HMO) [id number] Self [id number] [employer] COMMUNITY PLAN MCDHMO [id number] SP [id number] [place] P [id number] P [id number] SELF PAY ONLY [id number] SP [id number] [facility](MCAID) O [id number] S [id number] [place] P[place] 302/307 [id number] SP [id number] [place] 306/806 [id number] SP [id number] [facility] [id number] [employer] [place] [id number] [place] P [id number] O [id number] [place] ([place] EMP) P [id number] C [id number] Problems, Conditions, and Diagnoses Code Display Name Description Problem Type Effective Dates Data Source(s) 512745033 Finding of esophagus Finding of Esophagus Problem 07/25/2020 04:41:52 PM EDT [place] ([facility]) 614750186 Asthma Asthma Problem 07/25/2020 04:41:52 PM ED T [place] ([facility]) 312010475 Finding of esophagus Finding of Esophagus Problem 07/25/2020 04:41:52 PM EDT [facility] ([facility]) [id number] Asthma Asthma Problem 07/25/2020 04:41:52 PM ED T [place] ([facility]) [id number] Finding of esophagus Finding of Esophagus Problem 07/25/2020 04:41:52 PM EDT [place] ([facility]) [id number] Asthma Asthma Problem 07/25/2020 04:41:52 PM ED T [place] ([facility]) 292412089 Urinary tract infection, site not specif ied Urinary tract infection, site not specified 07/24/2020 03:57:19 PM EDT [facility] 788.1 Dysuria Dysuria 07/24/2020 03:57:19 PM ED T [facility] 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 CATATONIC DISORDER D/T ANOTHER MEDICAL CONDITION 05/29/2020 04:18:03 PM EDT No [facility] F32.9 DEPRESSIVE DISORDER, UNSPECIFIED DEPRESSIVE DISORDER, UNSPECIFIED 05/29/2020 04:18:03 PM EDT [facility] [id number] Catatonia Catatonia Problem 05/29/2020 12:00:00 AM ED T [place] ([facility]) 193543710 Catatonia Catatonia Problem 05/29/2020 12:00:00 AM ED T [place] ([facility]) 154865430 Catatonia Catatonia Problem 05/29/2020 12:00:00 AM ED T [place] ([facility]) V65.8 Person consulting for explanation of exa mination or test findings Person consulting for explanation of examination or test findings 05/22/2020 03:44:48 PM EDT [facility] 268.9 vitamin D deficiency vitamin D deficiency 05/22 03:44:48 PM EDT [facility] [id number] Patient asked to attend Patient Asked to Attend Proble 05/22/2020 12:00:00 AM EDT [place] ([facility]) [id number] Patient asked to attend Patient Asked to Attend Proble 05/22/2020 12:00:00 AM EDT [place] ([facility]) [id number] Patient asked to attend Patient Asked to Attend Proble 05/22/2020 12:00:00 AM EDT [place] ([facility]) [id number] Depressive disorder Depressive Disorder Problem 0 05/16/2020 12:00:00 AM EDT [place] ([facility]) 15280466 Depressive disorder Depressive Disorder Problem 0 05/16/2020 12:00:00 AM EDT [place] ([facility]) 58231926 Depressive disorder Depressive Disorder Problem 0 05/16/2020 12:00:00 AM EDT [facility] ([facility]) 780.79 Fatigue Fatigue 04/24/2020 11:59:16 AM ED T [facility] [id number] Finding of general energy Finding of General Energy Pr oblem 04/24/2020 12:00:00 AM EDT [place] ([facility]) 773021527 Finding of general energy Finding of General Energy Pr oblem 04/24/2020 12:00:00 AM EDT [place] ([facility]) 408219470 Finding of general energy Finding of General Energy Pr oblem 04/24/2020 12:00:00 AM EDT [place] ([facility]) F31.81 Bipolar II disorder Bipolar II Disorder Condition 0 03/29/2020 12:00:00 AM EDT [facility] ([facility]) F15.10 Other stimulant abuse, uncomplicated Sti mulant Use Disorder, Mild: Other or unspecified stimulant Condition 03/29/2020 12:00:00 AM EDT [facility] ([facility]) F11.20 Opioid dependence, uncomplicated Opioid Use Disorder, Moderate Condition 03/29/2020 12:00:00 AM EDT [facility] ([facility]) F41.9 Anxiety disorder, unspecified Unspecified Anxiety Diso rder Condition 03/29/2020 12:00:00 AM EDT [facility] ([facility]) V70.0 Encounter for general adult medical exam ination with abnormal findings Encounter for general adult medical examination with abnormal findings 11/09/2019 08:46:34 AM EST [facility] F17.200 Nicotine dependence, unspecified, uncomp licated Nicotine dependence, unspecified, uncomplicated 11/09/2019 08:46:34 AM EST [facility] [id number] Procedure by method Procedure by Method Problem 0 11/09/2019 12:00:00 AM EST [place] ([facility]) 32512054 Nicotine dependence Nicotine Dependence Problem 0 11/09/2019 12:00:00 AM EST [place] ([facility]) [id number] Procedure by method Procedure by Method Problem 0 11/09/2019 12:00:00 AM EST [facility] ([facility]) 64195678 Nicotine dependence Nicotine Dependence Problem 0 11/09/2019 12:00:00 AM EST [place] ([facility]) [id number] Procedure by method Procedure by Method Problem 0 11/09/2019 12:00:00 AM EST [place] ([facility]) 32008456 Nicotine dependence Nicotine Dependence Problem 0 11/09/2019 12:00:00 AM EST [place] ([facility]) Surgeries/Procedures Procedure Description Date Indications Data Source(s) [facility] [place] Telemed E/M Lvl 3--Est pt 03/29/2020 12:00:00 AM EDT - 03/29/2020 12:00:00 AM EDT [facility] ([facility]) [facility] [place] Telemed E/M Lvl 3--Est pt 03/29/2020 12:00:00 AM E DT [facility] ([facility]) Telemed Diagnostic Eval 03/15/2020 12:00 :00 AM EDT - 03/15/2020 12:00:00 AM EDT [facility] ([facility]) Telemed Diagnostic Eval 03/15/2020 12:00:00 AM EDT [facility] ([facility]) [id number]"Psychotherapy 0 12:00:00 AM EDT - 03/14/2020 12:00:00 AM EDT [facility] ([facility]) [id number]"Psychotherapy 03/14/2020 12:00:00 AM EDT [facility] ([facility]) MHC Telemed Diag Eval no med 02/22/2020 12:00:00 AM EDT - 02/22/2020 12:00:00 AM EDT [facility] ([facility]) MHC Telemed Diag Eval no med 02/22/2020 12:00:00 AM ED T [facility] ([facility]) MHC Telemed Diag Eval no med 02/19/2020 12:00:00 AM EDT - 02/19/2020 12:00:00 AM EDT [facility] ([facility]) MHC Telemed Diag Eval no med 02/19/2020 12:00:00 AM ED T [facility] ([facility]) [id number]"Psychotherapy 0 12:00:00 AM EDT - 02/02/2020 12:00:00 AM EDT [facility] ([facility]) [id number]"Psychotherapy 02/02/2020 12:00:00 AM EDT [facility] ([facility]) Results ID Date Data Source [id number] 10/29/2020 01:46:00 PM EST [place] ([facility]) Name Value Range Interpretation Code Description Data Charissa rce(s) Supporting Document(s) sars-cov-2 negative negative normal Sars-cov-2 [place] ([facility]) ID Date Data Source [id number] 10/29/2020 12:44:00 PM EST [facility] Name Value Range Interpretation Code Description Data Charissa rce(s) Supporting Document(s) SARS coronavirus 2 RdRp gene [Presence] in Respiratory specimen by ANISH with probe detection Not detected [facility] This lab was ordered by [facility] and reported by [facility]. ID Date Data Source [id number] 07/24/2020 04:19:00 PM EDT [facility] Name Value Range Interpretation Code Description Data Charissa rce(s) Supporting Document(s) APPEARANCE U CLOUDY CLEAR H [facility] SPEC GR URIN 1.014 1.002-1.035 [facility] [place] [facility] UA COLOR YELLOW YELLOW N [facility] ID Date Data Source [id number] 07/24/2020 04:19:00 PM EDT [facility] Name Value Range Interpretation Code Description Data Charissa rce(s) Supporting Document(s) URINECULTRTN EXTD BRD SPCTRM BETA LACTAMASE IV NE GATIVE FOR ESBL [facility] ID Date Data Source [id number] 07/24/2020 03:14:36 PM EDT [facility] Measurements & CalculationsHeight: 63 inches (5 ft. 3 in.) 160.02 cm Weight: 109.6 pounds 49.82 kg Body Mass Index (BMI): 19.48BMI Interpretation: Healthy WeightBody Surface Area (BSA): 1.50Weight Management Education Done (Nutrition/Physical Activity)Vital SignsTemperature: 97.7FPulse Rate: 105 beats/minuteRespiratory Rate: 16 respirations/minuteBlood Pressure: 100/63 O2 Saturation: 96% Vital Signs performed by: Ricarda Leonard MA, July 24, 2020 3:33 PMVital Signs performed by: Ricarda Leonard MA, July 24, 2020 3:33 PMLabs In-House Urine TestsTest Result Reference Range Normal ValueRoutine Urinalysis Color: yellow Yellow Appearance: cloudy Clear Leukocytes: 15 Negative Nitrite: negative Negative Urobilinogen: 4 Negative Protein: 0.15 Negative pH: 6.0 5.0-6.5 Blood: 3+ Negative Specific Hershey: 1.030 1.020>=1.030 Ketone: negative Negative Bilirubin: negative Negative Glucose: negative NegativeRicarda Leonard MA, July 24, 2020 4:16 PMInitial Intake Information From: patientRoom #: 9Infectious Disease / Travel ScreeningRecent travel for you or any close contacts? NoHave you had any close contact with anyone diagnosed with or under investigation for COVID-19 (coronavirus)? NoFever? NoRespiratory symptoms: cough, cold, congestion, shortness of breath, difficulty breathing? NoLoss of smell? NoLoss of taste? NoSmoking, Tobacco, Vaping or Smoke Exposure StatusSmoke Status: current every day smokerTobacco Use: YesAdv to Quit: YesDo you vape? NoPassive Smoke Exposure: YesPassive Smoke Exposure comments: significant other and momMenstrual HistoryLast Menstrual Period (LMP): 07/24/2020LMP History: Def initeAny possibility of ? NoHealthcare HistorySince your last office visit...Have you been admitted to the hospital? No - [facility] admission date reported today: 04/17/2020Have you been to an emergency room (ER) or urgent care clinic? No - [facility]omitting/sickEmergency room (ER) or urgent care date reported today: 04/17/2020Have you seen another healthcare provider? Yes - [facility] Have you seen a dentist? NoIntake performed by: Ricarda Leonard MA, July 24, 2020 3:24 PMRate Your HealthIn general, would you say your health is? FairPain AssessmentAre you currently having any pain which... You would like your provider to address? No Affects your activity level? NoDepression Screening - PHQ-2Over the last two weeks, have you... Had little interest or pleasure in doing things? Not at all Been feeling down, depressed, or hopeless? Not at all PHQ-2 Score: 0Anxiety Screening - HUGO-2Over the last two weeks, have you been... Feeling nervous, anxious, or on edge? Not at all Unable to stop or control worrying? Not at all HUGO-2 Score: 0Food InsecurityWithin the past year...Did you worry whether your food would run out before you got money to buy more? Never trueWas there a time when the food you bought didn't last and you didn't have money to get more? Never trueScreening, Brief Intervention, & Referral to Treatment (SBIRT)Pre-Screening Questions How many times have you have 4 or more drinks in a day? 0How many times have you used an illegal drug or used a prescription medication for a non-medical reason? 365Performed by: Ricarda Leonard MA, July 24, 2020 3:26 PMPatient History Medical History:AsthmaG E R DSubstance abuseAnxietyDepressionSurgical History:noneFamily History:Family History of AnemiaFamily History of ArthritisFH of AnxietyFamily History of AsthmaFH Breast CancerFH Colon CancerFH DepressionFH DiabetesFH Heart DiseaseFH HypertensionFH Lung/Respiratory DiseaseFH MigrainesFH SeizuresFamily History of Severe AllergiesFH Other CancerFamily History of Cervical CancerFH HeadachesFamily History of MelanomaFH Ovarian CancerFH Uterine CancerFH Weight DisorderFH EndometriosisSocial/Personal History: Advised to Quit/Tobacco Education: YesChief Complaintfollow-up visit UTI room 9History of Present Illness (HPI)25 YO here for concerns of UTI. Pt states she has pain in lower abdomen and burning when she urinates. Pt also reports polyuria. Pt also reports tender breasts. Pt states started messtral today. HPI performed by: [facility], July 24, 2020 3:46 PMTransitions of Care InboundProblem ReviewProblem List was reviewed and/or upd ated during this visit.Medication Reconciliation & ReviewMedication List was reviewed and/or updated during this visit, including review of any dibr-ltj-motsnkk medications, herbal therapies, and/or supplements.Allergy ReviewAllergy List was reviewed and/or updated during this visit.Adult Preventive CareProvider Calculated and Reviewed all Clinical Protocols for patient today. Screening Tobacco Screening: Smoking Status: current every day smoker (07/24/2020) Tobacco Use: Currently (07/24/2020) Advised to Quit: Yes (07/24/2020)Labs/Meds/Other Counseling-Nutrition and Physical Activity:BMI Int erpretation: Healthy Weight (07/24/2020) Counseling: Done (07/24/2020) Physical Activity: Done (07/24/2020)Review of Systems General: Denies loss of appetite, chills, dizziness, fatigue, fever, continued fever, headache, feeling ill, sweats, night sweats, sleep disturbances, weight loss. Eyes: Denies blurring of vision, double vision, irritation, discharge, vision loss, eye pain, eye swelling, droopy eyelid, sensitivity to light, redness, itching. Ears/Nose/Throat: Denies earache, ear discharge, ringing in ears, decreased hearing, nasal congestion, nosebleeds, runny nose, sore throat, hoarseness, difficulty swallowing, dry mouth, tooth pain, bleeding gums, swollen glands. Cardiovascular: Denies chest pain, palpitations, feeling faint, trouble breathing w/exertion, SOB upon lying down, SOB at night, peripheral edema, elevated blood pressure, decreased heart rate. Respiratory: Denies cough, difficulty breathing, shortness of breath, excessive sputum, coughing up blood, wheezing, chest pain. Breast: Complains of tenderness. Denies discoloration, breast changes, breast lump, nipple discharge. Gastrointestinal: Denies nausea, vomiting, bleeding, burning, itching, irritation, cramps, diarrhea. Genitourinary: Complains of pain with urination, burning with urination, urinary frequency, incomplete emptying. Denies urinary incontinence, urinary hesitancy, urinary urgency, urinary urgency at night, blood in urine. Musculoskeletal: Denies back pain, joint pain, leg pain, other pain-see comments, joint swelling, body aches, muscle aches, muscle cramps, muscle weakness, stiffness, recent injury. Skin: Denies rash, hives, redness, itching, dryness, nail changes, suspicious lesions, athlete's foot, rash on palms, rash on bottom of feet. Neurologic: Denies muscle impairment, weakness, numbn ess/tingling, seizures, slurred speech, feeling faint, tremors, vertigo, paralysis on one side, paralysis on both sides. Psychiatric: Denies depression, anxiety, memory loss, mental disturbance, suicidal ideation, homicidal ideation, hallucinations, paranoia, feeling stressed, hearing voices. Endocrine: Denies cold intolerance, heat intolerance, excessive thirst, excessive hunger, excessive urination, weight loss, weight gain. Physical ExamGeneral Appearance: well nourished, well hydrated, no acute distressEyes, External: conjunctivae and lids normal, EOMIRespiratory, Auscultation: clear to auscultation bilaterally; no rales, rhonchi, or wheezesRespiratory, Effort: no intercostal retractions or use of accessory musclesCardiovascular, Auscultation: S1, S2 audible; no murmur, rub, or gallop; RRRPeripheral Circulation: no clubbing, cyanosis, edema, or varicositiesAbdomen: soft, non-tender, no masses, bowel sounds normalGait & Station: normalSkin, Inspection: no rashes, lesions, or ulcerationsOrientation: oriented to time, place, and personMood & Affect: no depression, anxiety, or agitationJudgment & Insight: intactCare Management Plan Transitions of CareInboundRate Your HealthIn general, would you say your health is? FairAssessment & Plan Problems:Added: Dysuria (ICD-788.1) (KNV56-Y45.0) Assessment: Instructions: UA, done in office positive for UTI. Will send script to start ABX. Please take medication as prescribed. Please report any major side effects. Please try to maintain good persoonal hygiene and adequate intake of water daily.Urinary tract infection, site not specified (FYS61-N29.0) Assessment: Instructions: Will send script to start ABX. Please take medication as prescribed. Please report any major side effects. Please try to maintain good persoonal hygiene and adequate intake of water daily.Patient Instructions/Care Plan: Dysuria: UA, done in office positive for UTI. Will send script to start ABX. Please take medication as prescribed. Please report any major side effects. Please try to maintain good persoonal hygiene and adequate intake of water daily.Urinary tract infection- site not specified: Will send script to start ABX. Please take medication as prescribed. Please report any major side effects. Please try to maintain good persoonal hygiene and adequate intake of water daily. Plan developed in collaboration with patient and/or familyMedications:MACROBID 100 MG ORAL CAPSULEPROZAC 10 MG ORAL CAPSULEVITAMIN D3 41185 UNIT ORAL TABLETMedication Changes:New Prescription:MACROBID 100 MG ORAL CAPSULE-take one tablet by mouth daily x 5 day s. Qty: 10[Capsule] Refills: 0 Method: ElectronicAllergies:No Known Allergies (updated 04/24/2020) Orders:Urinalysis-manual [CPT-70035] Urine Culture & Sensitivity [CPT-91846] URINALYSIS [CPT-69205] Adult - Ofc Vst, EST, Level III [CPT-13152] Follow-Up Return to clinic: as scheduled and as needed Clinical Visit Summary CompletedMedications:MACROBID 100 MG ORAL CAPSULE (NITROFURANTOIN MONOHYD MACRO) take one tablet by mouth daily x 5 days. #10[Capsule] x 0 Route:ORAL Entered and Authorized by: Sugar WALLS Method used: Electronically to [facility] (retail) [facility] [place] [address] Ph: [phone] Note to Pharmacy: Route: ORAL; Indications: URINARY TRACT INFECTION, SITE NOT SPECIFIED;DYSURIA RxID: [id number] signed by Sugar WALLS on 07/28/2020 at 9:06 AM Name Value Range Interpretation Code Description Data Charissa rce(s) Supporting Document(s) ID Date Data Source [id number] 07/24/2020 03:14:36 PM EDT [facility] Name Value Range Interpretation Code Description Data Charissa rce(s) Supporting Document(s) APPEARANCE [facility] negative [facility] BLOOD UR DIP 3+ [facility] GLUCOSE, URN negative [facility] KETONES URN negative [facility] NITRITE URN negative [facility] PH URINE 6.0 [facility] PROTEIN, URN 0.15 [facility] [employer] SPEC GR URIN 1.030 [facility] UA COLOR yellow [facility] UROBILINOGEN 4 [facility] [employer] WBC DIPSTK U 15 [facility] ID Date Data Source [id number] 05/22/2020 01:50:34 PM EDT [facility] Initial Intake Information From: patient (Cell) Visit Type: phone/audio onlyTechnology Used: PhoneInfectious Disease / Travel ScreeningRecent travel for you or any close contacts? NoHave you had any close contact with anyone diagnosed with or under investigation for COVID-19 (coronavirus)? NoFever? NoRespiratory symptoms: cough, cold, congestion, shortness of breath, difficulty breathing? NoLoss of smell? NoLoss of taste? NoSmoking, Tobacco, Vaping or Smoke Exposure StatusSmoke Status: current every day smokerTobacco Use: YesAdv to Quit: YesDo you vape? NoMenstrual HistoryLast Menstrual Period (LMP): 05/22/2020Any possibility of ? NoHealthcare HistorySince your last office visit...Have you been admitted to the hospital? No - [facility] Hospital admission date reported today: 04/17/2020Have you been to an emergency room (ER) or urgent care clinic? No - [facility]/sickEmergency room (ER) or urgent care date reported today: 04/17/2020Have you seen another healthcare provider? Yes - [facility] Have you seen a dentist? NoIntake performed by: Park Anderson MA, May 22, 2020 1:51 PMRate Your HealthIn general, would you say your health is? FairPain AssessmentAre you currently having any pain which... You would like your provider to address? No Affects your activity level? NoDepression Screening - PHQ-2Over the last two weeks, have you... Had little interest or pleasure in doing things? Not at all Been feeling down, depressed, or hopeless? Not at all PHQ-2 Score: 0Anxiety Screening - HUGO-2Over the last two weeks, have you been... Feeling nervous, anxious, or on edge? Not at all Unable to stop or control worrying? Not at all HUGO-2 Score: 0Screening, Brief Intervention, & Referral to Treatment (SBIRT)Pre- Screening Questions How many times have you have 4 or more drinks in a day? 0How many times have you used an illegal drug or used a prescription medication for a non-medical reason? 365Performed by: Park Anderson MA, May 22, 2020 1:52 PMPatient History Medical History:AsthmaG E R DSurgical History:noneFamily History:Family History of AnemiaFamily History of ArthritisFH of AnxietyFamily History of AsthmaFH Breast CancerFH Colon CancerFH DepressionFH DiabetesFH Heart DiseaseFH HypertensionFH Lung/Respiratory DiseaseFH MigrainesFH SeizuresFamily History of Severe AllergiesFH Other CancerFamily History of Cervical CancerFH He adachesFamily History of MelanomaFH Ovarian CancerFH Uterine CancerFH Weight DisorderFH EndometriosisSocial/Personal History: Advised to Quit/Tobacco Education: YesChief Complaintlab resultsHistory of Present Illness (HPI)This visit was conducted via telephone. Sugar WALLS, has received verbal consent from the patient/guardian to conduct this visit via telehealth. The patient has been made aware that they have the right to refuse telehealth; of my location and the security of the telehealth software; any other parties present in the session; and that they have a right to select another provider if chosen for a face to face visit. Pt today on telephone visit for follow up visit and review of lab results. Pt statesin therapy but still anxiety depression with increeased stress. Pt states was going to [facility] but have stop taking her Suboxone, Pt states struggling with anxiety depression. pt was previously referrered to telepsych. Pt states havent recieved an appointment as yet for telepsych. Pt denies any suicidal or homicidal ideations. HPI performed by: Sugar WALLS, May 22, 2020 3:28 PMTransitions of Care InboundProblem ReviewProblem List was reviewed and/or updated during this visit.Medication Reconciliation & ReviewMedication List was reviewed and/or updated during this visit, including review of any ragz-ezt-tvwhnkj medications, herbal therapies, and/or supplements.Allergy ReviewAllergy List was reviewed and/or updated during this visit.Adult Preventive CareProvider Calculated and Reviewed all Clinical Protocols for patient today. Screening Tobacco Screening: Smoking Status: current every day smoker (05/22/2020) Tobacco Use: Currently (05/22/2020) Advised to Quit: Yes (05/22/2020)Cancer Screening Pap Smear/HPV TestingReviewed: Previous Comments: wants to have done in house (04/24/2020)Today's Comments: has apptReview of Systems General: Denies loss of appetite, chills, dizziness, fatigue, fever, continued fever, headache, feeling ill, sweats, night sweats, sleep disturbances, weight loss. Eyes: Denies blurring of vision, double vision, irritation, discharge, vision loss, eye pain, eye swelling, droopy eyelid, sensitivity to light, redness, itching. Ears/Nose/Throat: Denies earache, ear discharge, ringing in ears, decreased hearing, nasal congestion, nosebleeds, runny nose, sore throat, hoarseness, difficulty swallowing, dry mouth, tooth pain, bleeding gums, swollen glands. Cardiovascular: Denies chest pain, palpitations, feeling faint, trouble breathing w/exertion, SOB upon lying down, SOB at night, peripheral edema, elevated blood pressure, decreased heart rate. Respiratory: Denies cough, difficulty breathing, shortness of breath, excessive sputum, coughing up blood, wheezing, chest pain. Breast: Denies discoloration, tenderness, breast changes, breast lump, nipple discharge. Gastrointestinal: Denies nausea, vomiting, diarrhea, constipation. Genitourinary: Denies urinary incontinence, pain with urination, burning with urination, urinary frequency, urinary hesitancy, urinary urgency, urinary urgency at night, incomplete emptying, blood in urine. Musculoskeletal: Denies back pain, joint pain, leg pain, other pain-see comments, joint swelling, body aches, muscle aches, muscle cramps, muscle weakness, stiffness, recent injury. Skin: Denies rash, hives, redness, itching, dryness, nail changes, suspicious lesions, athlete's foot, rash on palms, rash on bottom of feet. Neurologic: Denies muscle impairment, weakness, numbness/tingling, seizures, slurred speech, feeling faint, tremors, vertigo, paralysis on one side, paralysis on both sides. Psychiatric: Complains of depression, anxiety, feeling stressed. Endocrine: Denies cold intolerance, heat intolerance, excessive thirst, excessive hunger, excessive urination, weight loss, weight gain. Physical ExamJudgment & Insight: need further assessmentCare Management Plan Transitions of CareInboundRate Your HealthIn general, would you say your health is? FairAssessment & Plan Problems:Added: Person consulting for explanation of examination or test findings (ICD-V65.8) (TDQ37-H89.2) Assessment: Telephone visit 20 minutes. Instructions: We have reviewed your lab results with you today. Lab results unremarkable except for vitamin D deficiency. [facility] will send a prescription for vitamin d meds. please take weekly as prescribed. Please report any major side effects. Please continue healthy diet and physical activities.vitamin D deficiency (ICD-268.9) (SJL64-L02.9) Assessment: Instructions: vitamin D meds sent to pharmacy for you today.Assessed:Anxiety depression (ICD-300.4) (GZU67-M11.8) Assessment: Spoke with Telepsych iván, will schedule to see Dr Delgado. Instructions: our Telepsych nurse will be intouch with you to schedule you to see our Telepsych provider. In the meantine Please try to monitor, report and avoid triggers causing anxiety and or depressionNicotine dependence, unspecified, uncomplicated (BTI72-Y71.200) Assessment: Instructions: Please continue to try to cut back on your smoking with a goal to quit.Health Screening (ICD-V70.0) (ICD10- Z13.9) Assessment: Instructions: labs reviewed with you today.Assessment not Saved Person consulting for explanation of examination or test findings (WQZ93-Z60.2): Patient Instructions/Care Plan: Person consulting for explanation of examination or test findings: We have reviewed your lab results with you today. Lab results unremarkable except for vitamin D deficiency. [facility] will send a prescription for vitamin d meds. please take weekly as prescribed. Please report any major side effects. Please continue healthy diet and physical activities.Anxiety depression: our Telepsych nurse will be intouch with you to schedule you to see our Telepsych provider. In the meantine Please try to monitor, report and avoid triggers causing anxiety and or depressionNicotine dependence- unspecified- uncomplicated: Please continue to try to cut back on your smoking with a goal to quit.Health Screening: labs reviewed with you today.vitamin D deficiency: vitamin D meds sent to pharmacy for you today. Plan developed in collaboration with patient and/or familyMedications:VITAMIN D3 70518 UNIT ORAL TABLETSUBOXONE 8-2 MG SUBLINGUAL FILMMedication Changes:New Prescription:VITAMIN D3 87527 UNIT ORAL TABLET-1 po q wk for 12 wks, then change to 1000 unit tablet daily thereafter Qty: 12[Tablet] Refills: 0 Method: ElectronicRemoved:HYDROXYZINE HCL 50 MG ORAL TABLETAllergies:No Known Allergies (updated 04/24/2020) Orders:Telephone E&M 11- 20 min Medical Discussion [CPT-97857] Follow-Up Return to clinic: 3 months for follow up Medications:VITAMIN D3 86860 UNIT ORAL TABLET (CHOLECALCIFEROL) 1 po q wk for 12 wks, then change to 1000 unit tablet daily thereafter #12[Tablet] x 0 Route:ORAL Entered and Authorized by: Sugar WALLS Method used: Electronically to [facility] (retail) [address] [place] [address] Note to Pharmacy: Route: ORAL; Indications: VITAMIN D DEFICIENCY RxID: [id number] signed by Sugar WALLS on 05/27/2020 at 12:23 AM Name Value Range Interpretation Code Description Data Charissa rce(s) Supporting Document(s) ID Date Data Source [id number] 04/24/2020 12:00:00 PM EDT [facility] Name Value Range Interpretation Code Description Data Charissa rce(s) Supporting Document(s) HCT 44.1 % 36.0-47.0 N [facility] HGB 14.3 g/dL 12.0-15.5 N [facility] MCH 32.4 G/DL pg 32.0-36.5 N [facility] MCHC 29.7 PG % 27.0-33.0 N [facility] PLATELETS 269 10 10*3/mm3 150-450 N [facility] RBC 4.82 10 10*6/mm3 4.00-5.40 N [facility] RDW 13.5 % 11.5-14.5 N [facility] WBC TOTAL 5.8 4.0-10.0 N [facility] ID Date Data Source [id number] 04/24/2020 12:00:00 PM EDT [facility] Name Value Range Interpretation Code Description Data Charissa rce(s) Supporting Document(s) VIT D25 TOT 19.1 ng/mL 30.0-100.0 L [facility] BG FASTING 85 mg/dL 70-100 N [facility] T4, FREE 1.13 ng/dL 0.76-1.46 N [facility] TSH 0.839 microintl units/mL 0.358-3.740 N [facility] ID Date Data Source [id number] 04/24/2020 12:00:00 PM EDT [facility] Name Value Range Interpretation Code Description Data Charissa rce(s) Supporting Document(s) HGBA1C 5.3 % N [facility] ID Date Data Source [id number] 04/24/2020 11:40:00 AM EDT [facility] Name Value Range Interpretation Code Description Data Charissa rce(s) Supporting Document(s) URINECULTRTN NO GROWTH [facility] ID Date Data Source [id number] 04/24/2020 11:40:00 AM EDT [facility] Name Value Range Interpretation Code Description Data Charissa rce(s) Supporting Document(s) APPEARANCE U CLEAR CLEAR N [facility] SPEC GR URIN 1.010 1.002-1.035 N [facility] UA COLOR STRAW YELLOW N [facility] ID Date Data Source [id number] 04/24/2020 09:39:40 AM EDT [facility] Measurements & CalculationsHeight: 63 inches (5 ft. 3 in.) 160.02 cm Weight: 102 pounds 2 oz. 46.42 kg Body Mass Index (BMI): 18.16BMI Interpretation: UnderweightBody Surface Area (BSA): 1.45Vital SignsTemperature: 98.6FPulse Rate: 93 beats/minuteRespiratory Rate: 14 respirations/minuteBlood Pressure: 98/67 O2 Saturation: 98% Vital Signs performed by: Kesha Felix LPN, April 24, 2020 10:00 AMVital Signs performed by: Kesha Felix LPN, April 24, 2020 10:00 AMInitial Intake Information From: patientRoom #: 12Infectious Disease / Travel ScreeningRecent travel for you or any close contacts? NoHave you had any close contact with anyone diagnosed with or under investigation for COVID-19 (coronavirus)? NoFever? NoRespiratory symptoms: cough, cold, congestion, shortness of breath, difficulty breathing? NoLoss of smell? NoLoss of taste? NoSmoking, Tobacco, Vaping or Smoke Exposure StatusSmoke Status: former smokerTobacco Use: NoDo you vape? NoPassive Smoke Exposure: NoPassive Smoke Exposure comments: quit two weeks ago Menstrual HistoryAny possibility of ? YesHealthcare HistorySince your last office visit...Have you been admitted to the hospital? Yes - [facility] Hospital admission date reported today: 04/17/2020Have you been to an emergency room (ER) or urgent care clinic? YesEmergency room (ER) or urgent care date reported today: 04/17/2020Have you seen another healthcare provider? Yes - [facility] Have you seen a dentist? NoIntake performed by: Kesha Felix LPN, April 24, 2020 9:44 AMRate Your HealthIn genera l, would you say your health is? FairPain AssessmentAre you currently having any pain which... You would like your provider to address? Yes Affects your activity level? YesDepression Screening - PHQ-2Patient refused depression screening.Anxiety Screening - HUGO-2Patient refused anxiety screening.Food InsecurityWithin the past year...Did you worry whether your food would run out before you got money to buy more? NoWas there a time when the food you bought didn't last and you didn't have money to get more? NoPain AssessmentPain ScaleNumeric Rating Scale: 5 / 10Location: abdomenDuration: 2 weeksFrequency: DailyCharacter/Quality: burning and stingingIs the pain radiating? NoScreening, Brief Intervention, & Referral to Treatment (SBIRT)Pre-Screening Questions How many times have you have 4 or more drinks in a day? 0How many times have you used an illegal drug or used a prescription medication for a non-medical reason? 0Performed by: Kesha Felix LPN, April 24, 2020 9:50 AMPatient History Medical History:AsthmaG E R DSurgical History:noneFamily History:Family History of AnemiaFamily History of ArthritisFH of AnxietyFamily History of AsthmaFH Breast CancerFH Colon CancerFH DepressionFH DiabetesFH Heart DiseaseFH HypertensionFH Lung/Respiratory DiseaseFH MigrainesFH SeizuresFamily History of Severe AllergiesFH Other CancerFamily History of Cervical CancerFH HeadachesFamily History of MelanomaFH Ovarian CancerFH Uterine CancerFH Weight DisorderFH EndometriosisSocial/Personal History: Chief Complainthospital D/C room 12 History of Present Illness (HPI)25 YO female here for follow up after hospital D/C Pt states was diagnosed with borderline personality disorder and bipolar. Pt mom is present. Pt very withdrawn.. mom answers most questions with patien's permission. Per mom notice changes in patient's behavior about 3-4 weeks. Per mom Pt quit going to [employer] about one month ago. Pt states had stop taking medications because she thought that she was . Pt is today stating dont believe that she is but would like to have urine test done to be sure. . Pt states has appointment with [facility] on Wednesday. 04/26. Pt very guarded, not wanting to say too much. Pt would like referral in house for and telepsych. Pt encourged to keep upcoming appointment at [facility]. HPI performed by: Sugar WALLS, April 24, 2020 11:12 AMTransitions of Care InboundProblem ReviewProblem List was reviewed and/or updated during this visit.Medication Reconciliation & ReviewMedication List was reviewed and/or updated during this visit, including review of any twoz-ynm-tibzeej medications, herbal therapies, and/or supplements.Allergy ReviewAllergy List was reviewed and/or updated during this visit. Patient has no known allergies.Provider Calculated and Reviewed all Clinical Protocols for patient today. Cancer Screening Pap Smear/HPV TestingReviewed: Previous Comments: will make appt in house (11/09/2019)Today's Comments: wants to have done in house Review of Systems General: Complains of sleep disturbances. Denies loss of appetite, chills, dizziness, fatigue, fever, continued fever, headache, feeling ill, sweats, night sweats, weight loss. Eyes: Denies blurring of vision, double vision, irritation, discharge, vision loss, eye pain, eye swelling, droopy eyelid, sensitivity to light, redness, itching. Ears/Nose/Throat: Denies earache, ear discharge, ringing in ears, decreased hearing, nasal congestion, nosebleeds, runny nose, sore throat, hoarseness, difficulty swallowing, dry mouth, tooth pain, bleeding gums, swollen glands. Cardiovascular: Denies chest pain, palpitations, feeling faint, trouble breathing w/exertion, SOB upon lying down, SOB at night, peripheral edema, elevated blood pressure, decreased heart rate. Respiratory: Denies cough, difficulty breathing, shortness of breath, excessive sputum, coughing up blood, wheezing, chest pain. Breast: Denies discoloration, tenderness, breast changes, breast lump, nipple discharge. Gastrointestinal: Complains of nausea. Denies vomiting, irritation, diarrhea, constipation, heartburn. Genitourinary: Denies urinary incontinence, pain with urination, blood in urine, pelvic pain. not sure when last menstral period was- cant remember. Musculoskeletal: Denies back pain, joint pain, leg pain, other pain-see comments, joint swelling, body aches, muscle aches, muscle cramps, muscle weakness, stiffness, recent injury. Skin: Denies rash, hives, redness, itching, dryness, nail changes, suspicious lesions, athlete's foot, rash on palms, rash on bottom of feet. Neurologic: Denies muscle impairment, weakness, numbness/tingling, seizures, slurred speech, feeling faint, tremors, vertigo, paralysis on one side, paralysis on both sides. Psychiatric: Complains of depression, anxiety, paranoia, feeling stressed. Denies memory loss, mental disturbance, suicidal ideation, homicidal ideation, hallucinations, hearing voices. Physical ExamGeneral Appearance: well nourished, well hydrated, no acute distressEyes, External: conjunctivae and lids normal, EOMIRespiratory, Auscultation: clear to auscultation bilaterally; no rales, rhonchi, or wheezesRespiratory, Effort: no intercostal retractions or use of accessory musclesCardiovascular, Auscultation: S1, S2 audible; no murmur, rub, or gallop; RRRPeripheral Circulation: no clubbing, cyanosis, edema, or varicositiesAbdomen: soft, non-tender, no masses, bowel sounds normalGait & Station: normalSkin, Inspection: no rashes, lesions, or ulcerationsOrientation: oriented to time, place, and personMood & Affect: very withdrawn, speak very minimum, gestures answers to mosst gustions. mother present, speaks for patient with patient's permission.Judgment & Insight: need further assessmentCare Management Plan Transitions of CareInboundRate Your HealthIn general, would you say your health is? FairAssessment & Plan Problems:Added: Fatigue (ICD-780.79) (GKE53-L83.83) Assessment: Instructions: We have ordered labs for you today. We will contact you if results are abnormal.Fatigue (ICD-780.79) (MPC16-B72.83) Assessment: Pt states increased tiredness and fatigue. labs ordered for eval.Assessed:Health Screening (ICD-V70.0) (FWJ94-M66.9) Assessment: Instructions: labs ordered today.Urine test negative. will send blood work for HCG testing.Anxiety depression (ICD-300.4) (PUB97-R47.8) Assessment: Instructions: Please continue medications as prescribed. Please Keep your appointment with [facility] as scheduled.Nicotine dependence, unspecified, uncomplicated (YON16-M16.200) Assessment: Instructions: Please try to cut back on your smoking with a goal to quit.Anxiety depression (ICD-300.4) (ICD10- F41.8) Assessment: and telepsych referral madeAssessment not Saved Anxiety depression (LSY56-W23.8): Comment Only and telepsych referral madePatient Instructions/Care Plan: Fatigue: We have ordered labs for you today. We will contact you if results are abnormal.Health Screening: labs ordered today.Urine test negative. will send blood work for HCG testing.Anxiety depression: Please continue medications as prescribed. Please Keep your appointment with [facility] as scheduled.Nicotine dependence- unspecified- uncomplicated: Please try to cut back on your smoking with a goal to quit. Plan developed in collaboration with patient and/or familyMedications:HYDROXYZINE HCL 50 MG ORAL TABLETSUBOXONE 8-2 MG SUBLINGUAL F ILMAllergies:No Known Allergies (updated 04/24/2020) Orders:COMP METABOLIC PANEL [CPT-28412] CBC W/DIFF [CPT-48457] T-4 free [CPT-35539] TSH [CPT-96893] LIPID PANEL [CPT-02371] HgBA1c [CPT-30720] Vitamin D 250H Unspecified [CPT-24734] URINALYSIS [CPT-69695] Urine Culture & Sensitivity [CPT-15132] Urine - Chlamydia [CPT-69199] Urine - Gonorrhea [CPT-62439] VITAMIN B-12 [CPT-06858] IRON [CPT- 66951] FERRITIN [CPT-07124] Folate (Folic Acid Serum) [CPT-02398] URINE TEST [CPT-07550] Free Beta hCG [CPT-44945] HCG-Quantitative [CPT- 76866] Mental Health Consult [CPT-39897] Telepsychiatry Consult [CPT-88391] Adult - Ofc Vst, EST, Level IV [CPT-62329] Follow-Up Return to clinic: 2-3 weeks for follow up. Clinical Visit Summary Completed Name Value Range Interpretation Code Description Data Charissa rce(s) Supporting Document(s) ID Date Data Source [id number] 11/09/2019 08:14:52 AM [facility] Measurements & CalculationsHeight: 63 inches (5 ft. 3 in.) 160.02 cm Weight: 129 pounds 9 oz. 58.89 kg Body Mass Index (BMI): 23.03BMI Interpretation: Healthy WeightBody Surface Area (BSA): 1.61Weight Management Education Done (Nutrition/Physical Activity)Vital SignsTemperature: 97.9F 36.61C oral Pulse Rate: 80 beats/minuteRespiratory Rate: 16 respirations/minuteBlood Pressure: 101/62 left arm sitting automaticO2 Saturation: 97% room airVital Signs performed by: Olive Garcia MA, November 09, 2019 8:16 AMInitial Intake Information from: patientRoom #: 14Infectious Disease- Travel Have you or your sexual partner travelled outside of the country recently? NoSmoking, Tobacco or Smoke Exposure StatusSmoke Status: current every day smokerTobacco Use: YesAdv to Quit: YesPassive Smoke Exposure: YesMenstrual HistoryLast Menstrual Period (LMP): 11/09/2019Healthcare HistorySince your last office visit...Have you been admitted to the hospital? NoHave you been to an emergency room (ER) or urgent care clinic? Yes - [facility]- Vomitting/sickHave you seen another healthcare provider? Yes - [facility] you seen a dentist? NoIntake performed by: Olive Garcia MA, November 09, 2019 8:17 AMRate Your HealthIn general, would you say your health is? FairPain AssessmentAre you currently having any pain which... You would like your provider to address? No Affects your activity level? NoDepression Screening - PHQ-2Over the last two weeks, have you... Had little interest or pleasure in doing things? Not at all Been feeling down, depressed, or hopeless? Not at all PHQ-2 Score: 0Anxiety Screening - HUGO-2Over the last two weeks, have you been... Feeling nervous, anxious, or on edge? Not at all Unable to stop or control worrying? Not at all HUGO-2 Score: 0Screening, Brief Intervention, & Referral to Treatment (SBIRT)Pre-Screening Questions How many times have you have 4 or more drinks in a day? 0How many times have you used an illegal drug or used a prescription medication for a non-medical reason? 0Performed by: Olive Garcia MA, November 09, 2019 8:19 AMPatient History Medical History:AsthmaG E R DSurgical History:noneFamily History:Family History of AnemiaFamily History of ArthritisFH of AnxietyFamily History of AsthmaFH Breast CancerFH Colon CancerFH DepressionFH DiabetesFH Heart DiseaseFH HypertensionFH Lung/Respiratory DiseaseFH MigrainesFH SeizuresFamily History of Severe AllergiesFH Other CancerFamily History of Cervical CancerFH HeadachesFamily History of MelanomaFH Ovarian CancerFH Uterine CancerFH Weight DisorderFH EndometriosisSocial/Personal History: Smoking Status: current every day smokerAdvised to Quit/Tobacco Education: YesChief Complaintfollow-up visitHistory of Present Illness (HPI)24 yo female here today for follow up and annual physical exam. Pt states still at [facility] for substance abuse treatment. Pt states stilll smoking about 1/2 pack to 1 pack cigarettes daily. Pt states not yet ready to quit at this time. Pt denies new concerns at this time. HPI performed by: Sugar ALFAROP, November 09, 2019 8:45 AMTransitions of Care InboundProblem ReviewProblem List was reviewed and/or updated during this visit.Medication Reconciliation & ReviewMedication List was reviewed and/or updated during this visit, including review of any idny-eni-dqgwxyw medications, herbal therapies, and/or supplements.Allergy ReviewAllergy List was reviewed and/or updated during this visit.Adult Preventive CareProvider Calculated and Reviewed all Clinical Protocols for patient today. Screening Tobacco Screening: Smoking Status: current every day smoker (11/09/2019) Advised to Quit: Yes (11/09/2019)Labs/Meds/Other Counseling-Nutrition and Physical Activity:BMI Interpretation: Healthy Weight (11/09/2019) Counseling: Done (11/09/2019) Physical Activity: Done (11/09/2019)Cancer Screening Pap Smear/HPV TestingReviewed: Previous Comments: pt would like to had pap set up. pt wiil call to let us know when and where it is set up. 08/07/2019 (08/07/2019)Today's Comments: will make appt in houseReview of Systems General: Denies loss of appetite, chills, dizziness, f atigue, fever, continued fever, headache, feeling ill, sweats, night sweats, sleep disturbances, weight loss. Eyes: Denies blurring of vision, double vision, irritation, discharge, vision loss, eye pain, eye swelling, droopy eyelid, sensitivity to light, redness, itching. Ears/Nose/Throat: Denies earache, ear discharge, ringing in ears, decreased hearing, nasal congestion, nosebleeds, runny nose, sore throat, hoarseness, difficulty swallowing, dry mouth, tooth pain, bleeding gums, swollen glands. Cardiovascular: Denies chest pain, palpitations, feeling faint, trouble breathing w/exertion, SOB upon lying down, SOB at night, peripheral edema, elevated blood pressure, decreased heart rate. Gastrointestinal: Denies nausea, vomiting, bleeding, burning, itching, irritation, cramps, diarrhea. Genitourinary: Denies urinary incontinence, pain with urination, burning with urination, urinary frequency, urinary hesitancy, urinary urgency, urinary urgency at night, incomplete emptying, blood in urine, pelvic pain. Musculoskeletal: Denies back pain, joint pain, leg pain, joint swelling, body aches, muscle aches, muscle cramps, muscle weakness, stiffness, recent injury. Neurologic: Denies muscle impairment, weakness, numbness/tingling, seizures, slurred speech, feeling faint, tremors, vertigo, paralysis on one side, paralysis on both sides. Psychiatric: Denies depression, anxiety, memory loss, mental disturbance, suicidal ideation, homicidal ideation, hallucinations, paranoia, feeling stressed, hearing voices. Endocrine: Denies cold intolerance, heat intolerance, excessive thirst, excessive hunger, excessive urination, weight loss, weight gain. Physical ExamGeneral Appearance: well nourished, well hydrated, no acute distressEyes, External: conjunctivae and lids normal, EOMIRespiratory, Auscultation: clear to auscultation bilaterally; no rales, rhonchi, or wheezesRespiratory, Effort: no intercostal retractions or use of accessory musclesCardiovascular, Auscultation: S1, S2 audible; no murmur, rub, or gallop; RRRPeripheral Circulation: no clubbing, cyanosis, edema, or varicositiesAbdomen: soft, non-tender, no masses, bowel sounds normalGait & Station: normalSkin, Inspection: no rashes, lesions, or ulcerationsOrientation: oriented to time, place, and personMood & Affect: no depression, anxiety, or agitationJudgment & Insight: intactCare Management Plan Transitions of CareInboundRate Your HealthIn general, would you say your health is? FairAssessment & Plan Problems:Added: Nicotine dependence, unspecified, uncomplicated (WYD08-A66.200) Assessment: Instructions: Cigarette smoking is linked to many health concerns. Please try to quit smoking. Please let us know if you need assistnce in doing so.Encounter for general adult medical examination with abnormal findings (ICD-V70.0) (TBX99-V82.01) Assessment: Instructions: You have had your annual physical exam done today. Lab results reviewed with you today. Please continue your medications as prescribed. Please continue lifestyle changes to include healthy diet and physical activities.Please try to maintain adequate fluid intake.Assessed:Anxiety depression (ICD-300.4) (TPA61-J59.8) Assessment: Instructions: Please continue to follow with your MH team at [facility].Health Screening (ICD-V70.0) (LLY86-E88.9) Assessment: Instructions: We have reviewed your lab results with you today. Please continue your medications as prescribed. Please continue lifestyle changes to include healthy diet and physical activities.Assessment not Saved Nicotine dependence; unspecified; uncomplicated (WJN89-R83.200): Smokin g cessation discussed. pt smoking 1/2 -1 pack cigarettes daily. Pt states not yet ready to quit smoking at this time. Patient Instructions/Care Plan: Anxiety depression: Please continue to follow with your MH team at [facility].Health Screening: We have reviewed your lab results with you today. Please continue your medications as prescribed. Please continue lifestyle changes to include healthy diet and physical activities.Nicotine dependence- unspecified- uncomplicated: Cigarette smoking is linked to many health concerns. Please try to quit smoking. Please let us know if you need assistnce in doing so.Encounter for general adult medical examination with abnormal findings: You have had your annual physical exam done today. Lab results reviewed with you today. Please continue your medications as prescribed. Please continue lifestyle changes to include healthy diet and physical activities.Please try to maintain adequate fluid intake. Plan developed in collaboration with patient and/or familyMedications:HYDROXYZINE HCL 50 MG ORAL TABLETSUBOXONE 8-2 MG SUBLINGUAL FILMMedication Changes:Added: SUBOXONE 8-2 MG SUBLINGUAL FILMHYDROXYZINE HCL 50 MG ORAL TABLETAllergies:No Known Allergies (updated 08/07/2019) Orders:Preventive, Est, (18-39) [CPT-01555] Follow-Up Return to clinic: as scheduled and as needed. Clinical Visit Summary Completed Name Value Range Interpretation Code Description Data Charissa rce(s) Supporting Document(s) ID Date Data Source [id number] 10/19/2019 09:44:23 AM EST [facility] Labs In-House Blood TestsDate/Time Colle cted: October 19, 2019 9:44 AMTest Result Reference Range Normal ValueComments: blood draw done in office done in the right ac tolerated well Eldon Baird MA, October 19, 2019 9:45 AMAssessment & Plan Orders:20133-Tml Vst-Est Level I [CPT-11379] 52532 - Venipuncture [CPT-40010] Name Value Range Interpretation Code Description Data Charissa rce(s) Supporting Document(s) ID Date Data Source [id number] 10/19/2019 09:25:00 AM EST [facility] Name Value Range Interpretation Code Description Data Charissa rce(s) Supporting Document(s) HCT 43.0 % 36.0-47.0 [facility] HGB 13.4 g/dL 12.0-15.5 N [facility] MCH 31.2 G/DL pg 32.0-36.5 L [facility] MCHC 28.6 PG % 27.0-33.0 [facility] PLATELETS 393 10 10*3/mm3 150-450 [facility] RBC 4.68 10 10*6/mm3 4.00-5.40 [facility] RDW 12.5 % 11.5-14.5 [facility] WBC TOTAL 5.9 4.0-10.0 [facility] ID Date Data Source [id number] 10/19/2019 09:25:00 AM [facility] Name Value Range Interpretation Code Description Data Charissa rce(s) Supporting Document(s) HGBA1C 5.2 % [facility] ID Date Data Source [id number] 10/19/2019 09:25:00 AM [facility] Name Value Range Interpretation Code Description Data Charissa rce(s) Supporting Document(s) VIT D25 TOT 21.7 ng/mL 30.0-100.0 L [facility] BG FASTING 85 mg/dL 70-100 N [facility] T4, FREE 0.95 ng/dL 0.76-1.46 N [facility] TSH 1.190 microintl units/mL 0.358-3.740 N [facility] Procedure Social History Code Duration Value Status Description Data Source(s ) Smoking 03/29/2020 12:00:00 AM EDT Unknown if ever smoked comp leted Unknown if ever smoked [facility] ([facility]) Smoking 03/15/2020 12:00:00 AM EDT Unknown if ever smoked comp leted Unknown if ever smoked [facility] ([facility]) Smoking 03/14/2020 12:00:00 AM EDT Unknown if ever smoked comp leted Unknown if ever smoked [facility] ([facility]) Smoking 02/22/2020 12:00:00 AM EDT Unknown if ever smoked comp leted Unknown if ever smoked [facility] ([facility]) Smoking 02/19/2020 12:00:00 AM EDT Unknown if ever smoked comp leted Unknown if ever smoked [facility] ([facility]) Smoking 02/02/2020 12:00:00 AM EDT Unknown if ever smoked comp leted Unknown if ever smoked [facility] ([facility]) Vital Signs ID Date Data Source UNK Name Value Range Interpretation Code Description Data Source(s) Body weight 1776 [oz_av] 1776 [oz_av] [facility] ([facility]) Body mass index (BMI) [Ratio] 19.7 kg/m2 19.7 k g/m2 [facility] ([facility]) Body height 63 [in_i] 63 [in_i] [facility] ([facility]) Body weight 1776 [oz_av] 1776 [oz_av] [facility] ([facility]) Body mass index (BMI) [Ratio] 19.7 kg/m2 19.7 k g/m2 [facility] ([facility]) Body height 63 [in_i] 63 [in_i] [facility] ([facility]) Body height 63 [in_i] 63 [in_i] [facility] ([facility]) Diastolic blood pressure 67 mm[Hg] 67 mm[Hg] [facility] ([facility]) Body weight 1634.08 [oz_av] 1634.08 [oz_av] ATH AMIRA ([facility]) Systolic blood pressure 98 mm[Hg] 98 mm[Hg] A THENA ([facility]) Body height 63 [in_i] 63 [in_i] [facility] ([facility]) Diastolic blood pressure 67 mm[Hg] 67 mm[Hg] [facility] ([facility]) Body weight 1634.08 [oz_av] 1634.08 [oz_av] ATH [facility]IRA ([facility]) Systolic blood pressure 98 mm[Hg] 98 mm[Hg] A [facility] ([facility]) Body height 63 [in_i] 63 [in_i] [facility] ([facility]) Diastolic blood pressure 67 mm[Hg] 67 mm[Hg] [facility] ([facility]) Body weight 1634.08 [oz_av] 1634.08 [oz_av] ATH AMIRA ([facility]) Systolic blood pressure 98 mm[Hg] 98 mm[Hg] A [facility] ([facility]) Diastolic blood pressure 0 mm[Hg] Normal (applies to non-numeric results) 0 mm[Hg] [facility] ([facility]) Systolic blood pressure 0 mm[Hg] Normal (applies t o non-numeric results) 0 mm[Hg] [facility] ([facility]) Body mass index (BMI) [Ratio] 23.24 kg/m2 No rmal (applies to non-numeric results) 23.24 kg/m2 [facility] ([facility]) Body weight Measured 123.00 lbs Normal (applies to n on-numeric results) 123.00 lbs [facility] ([facility]) Body height 61.00 in Normal (applies to non-numeric resu lts) 61.00 in [facility] ([facility]) Body weight 2072.96 [oz_av] 2072.96 [oz_av] ATH AMIRA ([facility]) Systolic blood pressure 101 mm[Hg] 101 mm[Hg] A [facility] ([facility]) Body height 63 [in_i] 63 [in_i] THALIA ([facility]) Diastolic blood pressure 62 mm[Hg] 62 mm[Hg] [facility] ([facility]) Body weight 2072.96 [oz_av] 2072.96 [oz_av] ATH AMIRA ([facility]) Systolic blood pressure 101 mm[Hg] 101 mm[Hg] A [facility] ([facility]) Body height 63 [in_i] 63 [in_i] TH[facility]IA ([facility]) Diastolic blood pressure 62 mm[Hg] 62 mm[Hg] [facility] ([facility]) Body weight 2072.96 [oz_av] 2072.96 [oz_av] ATH AMIRA ([facility]) Systolic blood pressure 101 mm[Hg] 101 mm[Hg] A THENA ([facility]) Body height 63 [in_i] 63 [in_i] [facility] ([facility]) Diastolic blood pressure 62 mm[Hg] 62 mm[Hg] [facility] ([facility]) Patient Treatment Plan of Care Planned Activity Planned Date Details Description Data Source (s) Sucralfate 1000 MG Oral Tablet [facility] ([facility]) pantoprazole 40 MG Delayed Release Oral Tablet [facility] ([facility] System) Ondansetron 4 MG Oral Tablet [facility] ([facility]) Ondansetron 8 MG Disintegrating Oral Tablet [facility] ([facility]) Omeprazole 40 MG Delayed Release Oral Capsule [facility] ([facility]) Narcan 4 mg/actuation nasal spray [facility] ([facility]) Metronidazole 500 MG Oral Tablet [facility] ([facility]) Lorazepam 0.5 MG Oral Tablet [facility] ([facility]) Ibuprofen 800 MG Oral Tablet [facility] ([facility]) Hydroxyzine Hydrochloride 50 MG Oral Tablet [facility] ([facility]) Hydroxyzine Hydrochloride 25 MG Oral Tablet [facility] ([facility]) gabapentin 600 MG Oral Tablet [facility] ([facility]) Fluconazole 150 MG Oral Tablet [facility] ([facility]) Escitalopram 5 MG Oral Tablet [facility] ([facility]) Buprenorphine 8 MG / Naloxone 2 MG Sublingual Tablet [facility] ([facility]) Buprenorphine 8 MG / Naloxone 2 MG Oral Strip [facility] ([facility]) Buprenorphine 4 MG / Naloxone 1 MG Oral Strip [facility] ([facility]) Buprenorphine 2 MG / Naloxone 0.5 MG Oral Strip [facility] ([facility]) aripiprazole 5 MG Oral Tablet [facility] ([facility]) Amoxicillin 875 MG Oral Tablet [facility] ([facility]) Sucralfate 1000 MG Oral Tablet [facility] ([facility]) pantoprazole 40 MG Delayed Release Oral Tablet [facility] ([facility]) Ondansetron 4 MG Oral Tablet [facility] ([facility]) Ondansetron 8 MG Disintegrating Oral Tablet [facility] ([facility]) Omeprazole 40 MG Delayed Release Oral Capsule [facility] ([facility]) Narcan 4 mg/actuation nasal spray [facility] ([facility]) Metronidazole 500 MG Oral Tablet [facility] ([facility]) Lorazepam 0.5 MG Oral Tablet [facility] ([facility]) Ibuprofen 800 MG Oral Tablet [facility] ([facility]) Hydroxyzine Hydrochloride 50 MG Oral Tablet [facility] ([facility]) Hydroxyzine Hydrochloride 25 MG Oral Tablet [facility] ([facility]) gabapentin 600 MG Oral Tablet [facility] ([facility]) Fluconazole 150 MG Oral Tablet [facility] ([facility]) Escitalopram 5 MG Oral Tablet [facility] ([facility]) Buprenorphine 8 MG / Naloxone 2 MG Sublingual Tablet [facility] ([facility]) Buprenorphine 4 MG / Naloxone 1 MG Oral Strip [facility] ([facility]) Buprenorphine 2 MG / Naloxone 0.5 MG Oral Strip [facility] ([facility]) Amoxicillin 875 MG Oral Tablet [facility] ([facility])
[2020-11-08] MEDS ORDERED: SUBO8MIS SL (19:30)
[2020-11-08] MEDS ORDERED: NS 1,000 ML IV ONE (20:15)
[2020-11-08] MEDS ORDERED: KETOROLAC 30 MG/ML 1ML VIAL IV ONE (20:15)
[2020-11-08] MEDS ORDERED: ONDANSETRON 4MG/2ML VIAL IV ONE (20:15)
[2020-11-08 20:41] LABS: BASO % 0.2 % (0.0-1.0); EOS # 0.1 10^3/uL (0.0-0.5); EOS % 0.9 % (0.0-3.0); HEMOGLOBIN 12.7 g/dl (12.0-15.5); LYMPH # 2.5 10^3/uL (1.5-5.0); LYMPH % 21.6 % (24.0-44.0); MEAN CORPUSCULAR HEMOGLOBIN 28.9 pg (27.0-33.0); MEAN CORPUSCULAR HGB CONC 31.8 g/dl (32.0-36.5); MEAN CORPUSCULAR VOLUME 90.9 fl (80.0-96.0); MONO # 0.9 10^3/uL (0.0-0.8); MONO % 7.7 % (0.0-5.0); NEUTROPHILS # 8.1 10^3/uL (1.5-8.5); NEUTROPHILS % 69.3 % (36.0-66.0); PLATELET COUNT, AUTOMATED 338 10^3/uL (150-450); WHITE BLOOD COUNT 11.6 10^3/uL (4.0-10.0)
[2020-11-08] MEDS ORDERED: ISOVUE-370 76% 100ML VIAL As Ordered ONE (20:52)
--- NOTE | 2020-11-08 21:38 | REPVR ---
PROCEDURE INFORMATION: Exam: CT Abdomen And Pelvis With Contrast Exam date and time: 11/08/2020 8:55 PM Age: 25 years old Clinical indication: Abdominal pain; Flank; Right; Additional info: Right flank/lower abd pain TECHNIQUE: Imaging protocol: Computed tomography of the abdomen and pelvis with contrast. Radiation optimization: All CT scans at this facility use at least one of these dose optimization techniques: automated exposure control; mA and/or kV adjustment per patient size (includes targeted exams where dose is matched to clinical indication); or iterative reconstruction. Contrast material: ISOVUE 370; Contrast volume: 100 ml; Contrast route: INTRAVENOUS (IV); COMPARISON: CT ABD/PEL W/IV CONTRAST ONLY 12/11/2019 2:16 PM FINDINGS: Liver: Normal. No mass. Gallbladder and bile ducts: Normal. No calcified stones. No ductal dilation. Pancreas: Normal. No ductal dilation. Spleen: Normal. No splenomegaly. Adrenal glands: Normal. No mass. Kidneys and ureters: Right kidney is slightly enlarged in comparison to the left and the cortex is lower density likely due to edema. There is right hydronephrosis. There is no right perinephric stranding. There is dilatation of the right ureter. A 2-3 mm calcific density is seen to the right of midline in the pelvis which could be within the distal ureter but may also not be. Series 201, image 111, series 202, image 62. No intrarenal calculi are apparent. Stomach and bowel: Unremarkable. No obstruction. No mucosal thickening. Appendix: No evidence of appendicitis. Intraperitoneal space: Unremarkable. No free air. No significant fluid collection. Vasculature: Unremarkable. No abdominal aortic aneurysm. Lymph nodes: Unremarkable. No enlarged lymph nodes. Urinary bladder: Unremarkable as visualized. Reproductive: Unremarkable as visualized. Bones/joints: Unremarkable. No acute fracture. Soft tissues: Unremarkable. IMPRESSION: There is right hydronephrosis and edema within the right kidney. This may be due to the 2-3 mm calcification which could be within the distal right ureter but could also be due to pyelonephritis. Electronically signed by: Rosina Rubin On 11/08/2020 21:37:54 PM
--- OUTSIDE RECORDS SUMMARY | 2020-11-08 21:50 | CCD ---
Author Author [facility] Organization [facility] Address Unknown Phone Unavailable Care Team Providers Care Trainer Name Role Phone Crystal Reynolds Unavailable Simran Magallanes Unavailable [phone] Oh Rader MD Unavailable Unavailable Oh Rader [...] MD Unavailable Unavailable [place], 897 Unavailable Unavailable [facility] [place] [facility] Unavailable [phone] [facility] Unavailable [phone] Andre, Sugar MATERIAL ENGINEER MATERIAL ENGINEER Unavailable Unavailable Andre, A Sugar MATERIAL ENGINEER Unavailable Unavailable Andre, A Sugar MATERIAL ENGINEER Unavailable Unavailable Andre, A Sugar MATERIAL ENGINEER Unavailable Unavailable Andre, A Sugar MATERIAL ENGINEER Unavailable Unavailable Andre, A Sugar MATERIAL ENGINEER Unavailable Unavailable Andre, A Sugar MATERIAL ENGINEER Unavailable Unavailable Andre, A Sugar MATERIAL ENGINEER Unavailable Unavailable [place], A Sugar MATERIAL ENGINEER Unavailable Unavailable [place], A Sugar MATERIAL ENGINEER Unavailable Unavailable [place], A Sugar MATERIAL ENGINEER Unavailable Unavailable [place], A Sugar MATERIAL ENGINEER Unavailable Unavailable [place], A Sugar MATERIAL ENGINEER Unavailable Unavailable [place], A Sugar MATERIAL ENGINEER Unavailable Unavailable [place], A Sugar MATERIAL ENGINEER Unavailable Unavailable [place], A Sugar MATERIAL ENGINEER Unavailable Unavailable [place], A Sugar MATERIAL ENGINEER Unavailable Unavailable [place], A Sugar MATERIAL ENGINEER Unavailable Unavailable [place], A Sugar MATERIAL ENGINEER Unavailable Unavailable [place], A Sugar MATERIAL ENGINEER Unavailable Unavailable [place], A Sugar MATERIAL ENGINEER Unavailable Unavailable [place], A Sugar MATERIAL ENGINEER Unavailable Unavailable [place], A Sugar MATERIAL ENGINEER Unavailable Unavailable [place], A Sugar MATERIAL ENGINEER Unavailable Unavailable [place], A Sugar MATERIAL ENGINEER Unavailable Unavailable [place], A Sugar MATERIAL ENGINEER Unavailable Unavailable [place], A Sugar MATERIAL ENGINEER Unavailable Unavailable [place], A Sugar MATERIAL ENGINEER Unavailable Unavailable [place], A Sugar MATERIAL ENGINEER Unavailable Unavailable Mike Duarte NP Unavailable Unavailable [...] is protected by Article 27-F of the [facility] Public Health law. If you continue you may have access to information: Regarding HIV / AIDS; Provided by facilities licensed or operated by the [facility] Office of Mental Health; or Provided by the [facility] Office for People With Developmental Disabilities. If such information is present, then the following [facility] mandated warning applies: This information has been [...] law may result in a fine or skilled nursing sentence or both. A general authorization for the release of medical or other information is NOT sufficient authorization for further disc losure. Allergies and Adverse Reactions Type Description Substance Reaction Status Data Source(s ) Propensity to adverse reactions to substance sertraline Sertraline 25 MG Oral Tablet [Zoloft] Active [facility] ([facility]) Allergy to substance Allergy to substance Allergy to substance [place] ([facility]) Family History Family Member Name Family Member Gender Family Member Status Date o f Status Description Data Source(s) Unknown Unknown Problem [facility] ([facility]) PGM Dx age late 60s Unknown Unknown Problem [facility] ([facility]) Encounters Encounter Providers Location Date Indications Data Source(s ) Sergey Rader MD: [address] [place] [phone], Ph. Attender: Sergey Rader MD [facility] Medical 10/29/2020 12:00:00 AM EST [place] ([facility]) Soraida Choi MD: [address] [place] [address], Ph. Attender: Soraida Choi MD [facility] Medical 08/15/2020 12:00:00 AM EST [place] ([facility]) Soraida Choi MD: [address] [place] [address], Ph. Attender: Soraida Choi MD [facility] Medical 08/15/2020 12:00:00 AM EST [place] ([facility]) Outpatient Attender: TITI ALFAROP FP 08/06/2020 12:04:00 P M EDT [facility] Outpatient Attender: TITI ALFAROP FP 08/01/2020 11:04:00 A M EDT [facility] Simran Magallanes, [facility]: [address] [place] [address], Ph. Attender: Simran Magallanes [facility] Medical 08/01/2020 12:00:00 AM EDT [facility]) Simran Magallanes [facility]: [address] [place] [address], Ph. Attender: Simran Magallanes [facility] Medical 08/01/2020 12:00:00 AM EDT [place] ([facility]) Simran Magallanes [facility]: [address] [place] [address], Ph. Attender: Simran Magallanes [facility] Medical 08/01/2020 12:00:00 AM EDT [facility]) Outpatient Attender: Sugar WALLS FP 07/28/2020 09:0 7:01 AM EDT [facility] Outpatient Attender: TITI ALFAROP FP 07/28/2020 09:07:01 A M EDT [facility] Outpatient Attender: Sugar Powell MATERIAL ENGINEER FP 07/27/2020 04:1 1:02 PM EDT [facility] Outpatient Attender: TITI Powell MATERIAL ENGINEER FP 07/27/2020 04:11:00 P M EDT [facility] Outpatient Attender: Sugar Powell MATERIAL ENGINEER FP 07/25/2020 10:2 1:00 AM EDT [facility] Outpatient Attender: TITI Powell MATERIAL ENGINEER FP 07/25/2020 12:02:05 A M EDT [facility] Outpatient Attender: TITI Powell MATERIAL ENGINEER FP 07/24/2020 08:01:01 P M EDT [facility] Outpatient Attender: TITI Powell MATERIAL ENGINEER FP 07/24/2020 03:58:02 P M EDT [facility] Outpatient Attender: TITI Powell MATERIAL ENGINEER FP 07/24/2020 03:14:01 P M EDT [facility] Outpatient Attender: TITI Powell MATERIAL ENGINEER FP 07/24/2020 10:35:01 A M EDT [facility] Outpatient Attender: TITI Powell MATERIAL ENGINEER FP 07/18/2020 09:00:01 A M EDT [facility] Outpatient Attender: TITI Powell MATERIAL ENGINEER FP 07/12/2020 08:01:08 P M EDT [facility] Outpatient Attender: Sugar ALFAROP FP 07/12/2020 01:3 3:01 PM EDT [facility] Outpatient Attender: TITI ALFAROP FP 07/12/2020 01:05:01 P M EDT [facility] Outpatient Attender: TITI Powell MATERIAL ENGINEER FP 07/06/2020 12:02:06 A M EDT [facility] Outpatient Attender: TITI ALFAROP FP 07/05/2020 08:01:27 P M EDT [facility] Outpatient Attender: TITI Powell MATERIAL ENGINEER FP 07/05/2020 10:57:00 A M EDT [facility] Outpatient Attender: TITI ALFAROP FP 06/27/2020 08:34:22 A M EDT [facility] Outpatient Attender: TITI ALFAROP FP 06/25/2020 08:01:01 P M EDT [facility] Outpatient Attender: TITI ALFAROP FP 06/25/2020 08:24:01 A M EDT [facility] Outpatient Attender: Sugar Powell MATERIAL ENGINEER FP 06/18/2020 03:4 1:01 PM EDT [facility] Outpatient Attender: TITI Powell MATERIAL ENGINEER FP 06/14/2020 08:01:04 P M EDT [facility] Outpatient Attender: TITI Powell MATERIAL ENGINEER FP 06/07/2020 11:19:01 A M EDT [facility] Outpatient Attender: TITI Powell MATERIAL ENGINEER FP 06/02/2020 08:01:01 P M EDT [facility] Outpatient Attender: TITI ALFAROP FP 05/31/2020 02:39:00 P M EDT [facility] Outpatient Attender: TITI Powell MATERIAL ENGINEER FP 05/30/2020 12:06:00 P M EDT [facility] Outpatient Attender: TITI Powell MATERIAL ENGINEER FP 05/29/2020 04:20:02 P M EDT [facility] Outpatient Attender: Sugar Powell MATERIAL ENGINEER FP 05/29/2020 04:1 9:01 PM EDT [facility] Outpatient Attender: TITI ALFAROP FP 05/22/2020 03:46:00 P M EDT [facility] Outpatient Attender: TITI Powell MATERIAL ENGINEER FP 05/22/2020 12:34:01 P M EDT [facility] Outpatient Attender: TITI ALFAROP FP 05/17/2020 12:02:15 A M EDT [facility] Outpatient Attender: TITI Powell MATERIAL ENGINEER FP 05/16/2020 08:01:04 P M EDT [facility] Outpatient Attender: TITI ALFAROP FP 05/16/2020 10:56:02 A M EDT [facility] Outpatient Attender: TITI ALFAROP FP 05/09/2020 09:13:01 A M EDT [facility] Outpatient Attender: Sugar ALFAROP FP 05/07/2020 01:2 6:02 PM EDT [facility] Outpatient Attender: TITI ALFAROP FP 05/06/2020 10:50:00 A M EDT [facility] Outpatient Attender: TITI WALLS FP 05/01/2020 11:34:00 A M EDT [facility] Outpatient Attender: Sugar Andre WALLS FP 04/29/2020 03:0 3:02 PM EDT [facility] Outpatient Attender: Sugar Powell TITI FP 04/28/2020 04:5 7:01 AM EDT [facility] Outpatient Attender: TITI WALLS FP 04/28/2020 04:56:00 A M EDT [facility] Outpatient Attender: Sugar Andre WALLS FP 04/28/2020 04:5 6:00 AM EDT [facility] Outpatient Attender: Sugar Andre WALLS FP 04/24/2020 11:0 7:00 PM EDT [facility] Outpatient Attender: TITI WALLS FP 04/24/2020 11:07:00 P M EDT [facility] Outpatient Attender: TITI WALLS FP 04/24/2020 02:48:00 P M EDT [facility] Outpatient Attender: TITI WALLS FP 04/24/2020 12:00:07 P M EDT [facility] Outpatient Attender: TITI WALLS FP 04/24/2020 11:15:01 A M EDT [facility] Outpatient Attender: TITI WALLS FP 04/24/2020 09:28:00 A M EDT [facility] Outpatient Attender: TITI WALLS FP 04/23/2020 02:16:01 P M EDT [facility] Outpatient Attender: TITI WALLS FP 04/22/2020 09:04:01 A M EDT [facility] Outpatient Attender: Shakeel Marquez 03/29/2020 11:00:00 AM EDT - 03/29/2020 11:00:00 AM EDT [facility] ([facility]) Attender: Shakeel Duarte NP 03/29/2020 12:00:00 AM EDT [facility] ([facility] Outpatient Attender: TITI WALLS FP 03/19/2020 07:39:23 P M EDT [facility] Telemed Diagnostic [facility]/15[facility] 10:00:00 AM EDT - 03/15/2020 10:00:00 AM EDT [facility] ([facility]) Attender: Shakeel Duarte NP 03/15/2020 12:00:00 AM EDT [facility] ([facility]) [id number]"Psychotherapy Attender: Crystaldeepika [facility] 03/14/2020 02:15:00 AM EDT - 03/14/2020 02:15:00 AM EDT [facility] ([facility]) Attender: Crystal Trujillomillie 03/14/2020 12:00:00 A M EDT [facility] ([facility]) [facility] Telemed Diag Eval no med Attender: Crystal [facility] 02/22/2020 09:00:00 AM EDT - 02/22/2020 09:00:00 AM EDT [facility] ([facility]) Attender: Crystal Ronniemillie 02/22/2020 12:00:00 A M EDT [facility] ([facility]) [facility] Telemed Diag Eval no med Attender: Crystal [facility] 02/19/2020 01:00:00 AM EDT - 02/19/2020 01:00:00 AM EDT [facility] ([facility]) [facility]/2020 12:00:00 A M EDT [facility] ([facility]) [id number]"Psychotherapy Attender: [facility] 02/02/2020 09:00:00 AM EDT - 02/02/2020 09:00:00 AM EDT [facility] ([facility]) Attender: [facility] 12:00:00 AM EDT [facility] ([facility]) Outpatient Attender: TITI MCDONALD 12/27/2019 01:24:00 P M EDT [facility] Outpatient Referrer: 681 [place] 12/14/2019 02:01:00 PM [facility] Imaging Outpatient Attender: Sugar WALLS FP 12/08/2019 05:0 8:59 PM [facility] Outpatient Referrer: 897 [place] 11/21/2019 01:20:00 PM [facility] Outpatient Attender: Sugar WALLS FP 11/09/2019 02:5 1:02 PM [facility] Outpatient Attender: TITI WALLS FP 11/09/2019 02:24:00 P M [facility] Outpatient Attender: TITI WALLS FP 11/09/2019 02:23:00 P M [facility] Outpatient Attender: TITI WALLS FP 11/09/2019 11:22:11 A M [facility] Outpatient Attender: Sugar WALLS FP 11/09/2019 11:2 1:22 AM [facility] Outpatient Attender: TITI WALLS FP 11/09/2019 11:20:29 A M [facility] Outpatient Attender: TITI WALLS FP 11/09/2019 11:19:47 A M [facility] Outpatient Attender: Sugar WALLS FP 10/29/2019 04:1 3:01 PM [facility] Outpatient Attender: TITI WALLS FP 10/23/2019 02:16:01 P M [facility] Outpatient Attender: TITI WALLS FP 10/19/2019 10:07:00 A M [facility] Outpatient Attender: TITI WALLS FP 10/10/2019 11:45:01 A M [facility] Outpatient Attender: Sugar WALLS FP 10/10/2019 11:4 4:01 AM [facility] Outpatient Attender: Sugra WALLS FP 09/22/2019 02:2 9:02 PM [facility] Functional Status Medications Medication Brand Name Start [...] AM EDT 5 mg by mouth completed 182299 aripiprazole by mouth [id number] 0 02/202004/14/2020 once a day 30 5 mg tablet [id number] [facility] [id number] Psychiatry [facility] ([facility]) 600 mg 02/26/2020 12:00:00 AM EDT tablet [...] DOSE = 1 TABLET SOLD: 12/27/2019 [facility] Escitalopram 5 MG Oral Tablet [...] DAILY DOSE = 1 FILM STRIP (LOT [id number]) DISSOLVE 1 FILM STRIP UNDER THE TONGUE ONCE DAILY , MAXIMUM DAILY DOSE = 1 FILM STRIP (LOT [id number]) SOLD: 09/12/2019 [facility] Escitalopram 5 MG Oral Tablet escitalopram 5 mg tablet escit alopram 5 mg tablet completed [facility]ram 5 MG Oral Tablet [facility] Ibuprofen 800 MG Oral Tablet ibuprofen 800 mg tablet ibuprofen 8 00 mg tablet completed ibuprofen 800 MG Oral Tablet [facility]) Ondansetron 4 MG Oral Tablet ondansetron HCl 4 mg tabl et ondansetron HCl 4 mg tablet completed ondansetron 4 M G Oral Tablet [place] ([facility]) Buprenorphine 8 MG / Naloxone 2 MG Subli ngual Tablet buprenorphine 8 mg-naloxone 2 mg sublingual tablet buprenorphine 8 mg-naloxone 2 mg sublingual tablet completed buprenorphine 8 MG / n aloxone 2 MG Sublingual Tablet [place] ([facility]) Hydroxyzine Hydrochloride 25 MG Oral Tablet hydroxyzin e HCl 25 mg tablet hydroxyzine HCl 25 mg tablet completed hydroxyzine hydrochloride 25 MG Oral Tablet [place] ([facility]) Buprenorphine 2 MG / Naloxone 0.5 MG Ora l Strip buprenorphine 2 mg-naloxone 0.5 mg sublingual film buprenorphine 2 mg-naloxone 0.5 mg sublingual film completed buprenorphine 2 MG / naloxon e 0.5 MG Sublingual Film [place] ([facility]) Lorazepam 0.5 MG Oral Tablet lorazepam 0.5 mg tablet lorazepam 0 .5 mg tablet completed lorazepam 0.5 MG Oral Tablet [place] ([facility]) pantoprazole 40 MG Delayed Release Oral Tablet pantoprazole 40 mg tablet,delayed release pantoprazole 40 mg tablet,delayed release completed pantoprazole 40 MG Delayed Release Oral Tablet [place] ([facility]) gabapentin 600 MG Oral Tablet gabapentin 600 mg tablet gabap entin 600 mg tablet completed gabapentin 600 MG Oral Tablet [place] ([facility]) Ondansetron 8 MG Disintegrating Oral Tab let ondansetron 8 mg disintegrating tablet ondansetron 8 mg disintegrating tablet completed ondansetron 8 MG Disintegrating Oral Tablet [place] ([facility]) Narcan 4 mg/actuation nasal spray [id number] completed naloxone hydrochloride 40 MG/ML Nasal [place] [Narcan] [place] ([facility]) Omeprazole 40 MG Delayed Release Oral Ca psule omeprazole 40 mg capsule,delayed release omeprazole 40 mg capsule,delayed release completed omeprazole 40 MG Delayed Release Oral Capsule [place] ([facility]) Metronidazole 500 MG Oral Tablet metronidazole 500 mg tablet metronidazole 500 mg tablet completed metronidazol e 500 MG Oral Tablet [place] ([facility]) Hydroxyzine Hydrochloride 50 MG Oral Tablet hydroxyzin e HCl 50 mg tablet hydroxyzine HCl 50 mg tablet completed hydroxyzine hydrochloride 50 MG Oral Tablet [facility]) aripiprazole 5 MG Oral Tablet aripiprazole 5 mg tablet aripi prazole 5 mg tablet completed aripiprazole 5 MG Oral Tablet [place] ([facility]) Buprenorphine 8 MG / Naloxone 2 MG Oral Strip buprenorphine 8 mg-naloxone 2 mg sublingual film buprenorphine 8 mg-naloxone 2 mg sublingual film completed buprenorphine 8 MG / naloxone 2 MG Sublingual Film [place] ([facility]) Buprenorphine 4 MG / Naloxone 1 MG Oral Strip buprenorphine 4 mg-naloxone 1 mg sublingual film buprenorphine 4 mg-naloxone 1 mg sublingual film completed buprenorphine 4 MG / naloxone 1 MG Sublingual Film [place] ([facility]) Buprenorphine 2 MG / Naloxone 0.5 MG Ora l Strip buprenorphine 2 mg-naloxone 0.5 mg sublingual film buprenorphine 2 mg-naloxone 0.5 mg sublingual film completed buprenorphine 2 MG / naloxon e 0.5 MG Sublingual Film [place] ([facility]) Sucralfate 1000 MG Oral Tablet sucralfate 1 gram table t sucralfate 1 gram tablet completed sucralfate 1000 MG Oral Tablet [place] ([facility]) Amoxicillin 875 MG Oral Tablet amoxicillin 875 mg tabl et amoxicillin 875 mg tablet completed amoxicillin 875 MG Oral Tablet [facility]) Escitalopram 5 MG Oral Tablet escitalopram 5 mg tablet escit alopram 5 mg tablet completed escitalopram 5 MG Oral Tablet [facility]) Hydroxyzine Hydrochloride 50 MG Oral Tablet hydroxyzin e HCl 50 mg tablet hydroxyzine HCl 50 mg tablet completed hydroxyzine hydrochloride 50 MG Oral Tablet [facility]) pantoprazole 40 MG Delayed Release Oral Tablet pantoprazole 40 mg tablet,delayed release pantoprazole 40 mg tablet,delayed release completed pantoprazole 40 MG Delayed Release Oral Tablet [place] ([facility]) Amoxicillin 875 MG Oral Tablet amoxicillin 875 mg tabl et amoxicillin 875 mg tablet completed amoxicillin 875 MG Oral Tablet [place] ([facility]) gabapentin 600 MG Oral Tablet gabapentin 600 mg tablet gabap entin 600 mg tablet completed gabapentin 600 MG Oral Tablet [facility]) Ibuprofen 800 MG Oral Tablet ibuprofen 800 mg tablet ibuprofen 8 00 mg tablet completed ibuprofen 800 MG Oral Tablet [facility]) Fluconazole 150 MG Oral Tablet fluconazole 150 mg tabl et fluconazole 150 mg tablet completed fluconazole 150 MG Oral Tablet [place] ([facility]) Metronidazole 500 MG Oral Tablet metronidazole 500 mg tablet metronidazole 500 mg tablet completed metronidazol e 500 MG Oral Tablet [facility]) Narcan 4 mg/actuation nasal spray [id number] completed naloxone hydrochloride 40 MG/ML Nasal [place] [Narcan] [facility]) Omeprazole 40 MG Delayed Release Oral Ca psule omeprazole 40 mg capsule,delayed release omeprazole 40 mg capsule,delayed release completed omeprazole 40 MG Delayed Release Oral Capsule [place] ([facility]) Buprenorphine 8 MG / Naloxone 2 MG Subli ngual Tablet buprenorphine 8 mg-naloxone 2 mg sublingual tablet buprenorphine 8 mg-naloxone 2 mg sublingual tablet completed buprenorphine 8 MG / n aloxone 2 MG Sublingual Tablet [place] ([facility]) Hydroxyzine Hydrochloride 25 MG Oral Tablet hydroxyzin e HCl 25 mg tablet hydroxyzine HCl 25 mg tablet completed hydroxyzine hydrochloride 25 MG Oral Tablet [facility]) Lorazepam 0.5 MG Oral Tablet lorazepam 0.5 mg tablet lorazepam 0 .5 mg tablet completed lorazepam 0.5 MG Oral Tablet [place] ([facility]) Ondansetron 4 MG Oral Tablet ondansetron HCl 4 mg tabl et ondansetron HCl 4 mg tablet completed ondansetron 4 M G Oral Tablet [facility]) Buprenorphine 4 MG / Naloxone 1 MG Oral Strip buprenorphine 4 mg-naloxone 1 mg sublingual film buprenorphine 4 mg-naloxone 1 mg sublingual film completed buprenorphine 4 MG / naloxone 1 MG Sublingual Film [facility]) Fluconazole 150 MG Oral Tablet fluconazole 150 mg tabl et fluconazole 150 mg tablet completed fluconazole 150 MG Oral Tablet [place] ([facility]) Ondansetron 8 MG Disintegrating Oral Tab let ondansetron 8 mg disintegrating tablet ondansetron 8 mg disintegrating tablet completed ondansetron 8 MG Disintegrating Oral Tablet [place] ([facility]) Sucralfate 1000 MG Oral Tablet sucralfate 1 gram table t sucralfate 1 gram tablet completed sucralfate 1000 MG Oral Tablet [place] ([facility]) Insurance Providers Payer name Policy type / Coverage type Policy ID Covered republican ID Covered republican's relationship to cohen Policy Cohen Plan Information PRINCE [id number] HIRAM [id number] [facility] [id number] SP [id number] Medicaid S [id number] Managed Care - [facility] Community Plan P [id number] S [id number] Medicaid S [id number] [employer] COMM[employer]ITY [employer]AN MCDHMO [id number] SP [id number] [facility]) O [id number] S [id number] [employer] COMMUNITY PLAN MCDHMO [id number] SP [id number] Managed Care - [facility] Community Plan P [id number] S [id number] Managed Care - [facility] Community Plan S [id number] S [id number] Medicaid O [id number] Self Pay P [id number] S [id number] [place] Plan P [id number] P [id number] [employer] COMMUNITY PLAN MCDHMO [id number] SP [id number] [facility] COMMUNITY PLAN MCDHMO [id number] SP [id number] [facility] Flori/MCR Medigap Part B [id number] Self [id number] [employer] BCBS Medigap Part B [id number] Self [id number] [facility] [place] [facility] Organization (HMO) [id number] Family Dependent [id number] UN COMMUNITY PLAN MCDHMO [id number] SP [id number] [facility] [place] [facility] (HMO) [id number] Self [id number] UN COMMUNITY PLAN MCDHMO [id number] SP [id number] [place] P [id number] P [id number] SELF PAY ONLY [id number] SP [id number] [facility]) O [id number] S [id number] [place] P[place] 302/307 [id number] SP [id number] [place] 306/[id number] SP [id number] [facility] [id number] [employer] [place] [id number] [place] P [id number] O [id number] [place] ([facility] P [id number] C [id number] Problems, Conditions, and Diagnoses Code Display Name Description Problem Type Effective Dates Data Source(s) 475233464 Finding of esophagus Finding of Esophagus Problem 07/25/2020 04:41:52 PM EDT [facility] ([facility]) 446499300 Asthma Asthma Problem 07/25/2020 04:41:52 PM ED T [place] ([facility]) 763810736 Finding of esophagus Finding of Esophagus Problem 07/25/2020 04:41:52 PM EDT [place] ([facility]) 661220994 Asthma Asthma Problem 07/25/2020 04:41:52 PM ED T [place] ([facility]) 632121201 Finding of esophagus Finding of Esophagus Problem 07/25/2020 04:41:52 PM EDT [place] ([facility]) 686204846 Asthma Asthma Problem 07/25/2020 04:41:52 PM ED T [place] ([facility]) 098977641 Urinary tract infection, site not specif ied Urinary tract infection, site not specified 07/24/2020 03:57:19 PM EDT [facility] 788.1 Dysuria Dysuria 07/24/2020 03:57:19 PM ED T [facility] 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 CATATONIC DISORDER D/T ANOTHER MEDICAL CONDITION 05/29/2020 04:18:03 PM EDT No [facility] F32.9 DEPRESSIVE DISORDER, UNSPECIFIED DEPRESSIVE DISORDER, UNSPECIFIED 05/29/2020 04:18:03 PM EDT [facility] [id number] Catatonia Catatonia Problem 05/29/2020 12:00:00 AM ED T [place] ([facility]) 030422712 Catatonia Catatonia Problem 05/29/2020 12:00:00 AM ED Herb VÁSQUEZ ([facility]) 368094973 Catatonia Catatonia Problem 05/29/2020 12:00:00 AM ED T [place] ([facility]) V65.8 Person consulting for explanation of exa mination or test findings Person consulting for explanation of examination or test findings 05/22/2020 03:44:48 PM EDT [facility] 268.9 vitamin D deficiency vitamin D deficiency 05/22 03:44:48 PM EDT [facility] [id number] Patient asked to attend Patient Asked to Attend Proble 05/22/2020 12:00:00 AM EDT [place] ([facility]) [id number] Patient asked to attend Patient Asked to Attend Proble 05/22/2020 12:00:00 AM EDT [place] ([facility]) [id number] Patient asked to attend Patient Asked to Attend Proble 05/22/2020 12:00:00 AM EDT [place] ([facility]) 11657761 Depressive disorder Depressive Disorder Problem 0 05/16/2020 12:00:00 AM EDT [place] ([facility]) 14608220 Depressive disorder Depressive Disorder Problem 0 05/16/2020 12:00:00 AM EDT [place] ([facility]) 16750448 Depressive disorder Depressive Disorder Problem 0 05/16/2020 12:00:00 AM EDT [place] ([facility]) 780.79 Fatigue Fatigue 04/24/2020 11:59:16 AM ED T [facility] 538253448 Finding of general energy Finding of General Energy Pr oblem 04/24/2020 12:00:00 AM EDT [place] ([facility]) 191557635 Finding of general energy Finding of General Energy Pr oblem 04/24/2020 12:00:00 AM EDT [place] ([facility]) 338411312 Finding of general energy Finding of General Energy Pr oblem 04/24/2020 12:00:00 AM EDT [place] ([facility]) F31.81 Bipolar II disorder Bipolar II Disorder Condition 0 03/29/2020 12:00:00 AM EDT [place] ([facility]) F15.10 Other stimulant abuse, uncomplicated Sti mulant Use Disorder, Mild: Other or unspecified stimulant Condition 03/29/2020 12:00:00 AM EDT [facility] ([facility]) F11.20 Opioid dependence, uncomplicated Opioid Use Disorder, Moderate Condition 03/29/2020 12:00:00 AM EDT [facility] ([facility]) F41.9 Anxiety disorder, unspecified Unspecified Anxiety Diso rder Condition 03/29/2020 12:00:00 AM EDT [facility] ([facility]) V70.0 Encounter for general adult medical exam ination with abnormal findings Encounter for general adult medical examination with abnormal findings 11/09/2019 08:46:34 AM EST [facility] F17.200 Nicotine dependence, unspecified, uncomp licated Nicotine dependence, unspecified, uncomplicated 11/09/2019 08:46:34 AM EST [facility] [id number] Procedure by method Procedure by Method Problem 0 11/09/2019 12:00:00 AM EST [place] ([facility]) 07276699 Nicotine dependence Nicotine Dependence Problem 0 11/09/2019 12:00:00 AM EST [place] ([facility]) 970972468 Procedure by method Procedure by Method Problem 0 11/09/2019 12:00:00 AM EST [place] ([facility]) 49965218 Nicotine dependence Nicotine Dependence Problem 0 11/09/2019 12:00:00 AM EST [place] ([facility]) 062269789 Procedure by method Procedure by Method Problem 0 11/09/2019 12:00:00 AM EST [place] ([facility]) 77429404 Nicotine dependence Nicotine Dependence Problem 0 11/09/2019 12:00:00 AM EST [place] ([facility]) Surgeries/Procedures Procedure Description Date Indications Data Source(s) [facility] Telemed E/M Lvl 3--Est pt 03/29/2020 12:00:00 AM EDT - 03/29/2020 12:00:00 AM EDT [facility] ([facility]) [facility] Telemed E/M Lvl 3--Est pt 03/29/2020 12:00:00 AM E DT [facility] ([facility]) Telemed Diagnostic Eval 03/15/2020 12:00 :00 AM EDT - 03/15/2020 12:00:00 AM EDT [facility] ([facility]) Telemed Diagnostic Eval 03/15/2020 12:00:00 AM EDT [facility] ([facility]) [id number]"Psychotherapy 0 12:00:00 AM EDT - 03/14/2020 12:00:00 AM EDT [facility] ([facility]) [id number]"Psychotherapy 03/14/2020 12:00:00 AM EDT [facility] ([facility]) [facility] Telemed Diag Eval no med 02/22/2020 12:00:00 AM EDT - 02/22/2020 12:00:00 AM EDT [facility] ([facility]) MHC Telemed Diag Eval no med 02/22/2020 12:00:00 AM ED T [facility] ([facility]) MHC Telemed Diag Eval no med 02/19/2020 12:00:00 AM EDT - 02/19/2020 12:00:00 AM EDT [facility] ([facility]) [facility] Telemed Diag Eval no med 02/19/2020 12:00:00 AM ED T [facility] ([facility]) [id number]"Psychotherapy 0 12:00:00 AM EDT - 02/02/2020 12:00:00 AM EDT [facility] ([facility]) [id number]"Psychotherapy 02/02/2020 12:00:00 AM EDT [facility] ([facility]) Results ID Date Data Source [id number] 10/29/2020 01:46:00 PM EST [place] ([facility]) Name Value Range Interpretation Code Description Data Charissa rce(s) Supporting Document(s) sars-cov-2 negative negative normal Sars-cov-2 [place] ([facility]) ID Date Data Source [id number] 10/29/2020 12:44:00 PM EST [facility] Name Value Range Interpretation Code Description Data Charissa rce(s) Supporting Document(s) SARS coronavirus 2 RdRp gene [Presence] in Respiratory specimen by ANISH with probe detection Not detected [facility] This lab was ordered by [facility] and reported by [facility]. ID Date Data Source [id number] 07/24/2020 04:19:00 PM EDT [facility] Name Value Range Interpretation Code Description Data Charissa rce(s) Supporting Document(s) APPEARANCE U CLOUDY CLEAR [facility] SPEC GR URIN 1.014 1.002-1.035 N [facility] UA COLOR YELLOW YELLOW N [facility] ID Date Data Source [id number] 07/24/2020 04:19:00 PM EDT [facility] Name Value Range Interpretation Code Description Data Charissa rce(s) Supporting Document(s) URINECULTRTN EXTD BRD SPCTRM BETA LACTAMASE IV NE GATIVE FOR ESBL [facility] ID Date Data Source [id number] 07/24/2020 03:14:36 PM EDT [facility] Measurements & CalculationsHeight: 63 inches [...] pH: 6.0 5.0-6.5 Blood: 3+ Negative Specific [place]: 1.030 1.020>=1.030 Ketone: negative Negative Bilirubin: negative [...] been admitted to the hospital? No - [facility] Hospital admission date reported today: 04/17/2020Have you [...] messtral today. HPI performed by: Sugar Powell [facility], July 24, 2020 3:46 PMTransitions of Care InboundProblem ReviewProblem List was reviewed and/or upd ated during this visit.Medication Reconciliation & ReviewMedication List was reviewed and/or updated during this visit, including review of any qsen-rsr-lbbtusl medications, herbal therapies, and/or supplements.Allergy ReviewAllergy List [...] is? FairAssessment & Plan Problems:Added: Dysuria (ICD-788.1) (HFY63-X36.0) Assessment: Instructions: UA, done in office positive for UTI. Will send script to start ABX. Please take medication as prescribed. Please report any major side effects. Please try to maintain good persoonal hygiene and adequate intake of water daily.Urinary tract infection, site not specified (EPE06-S74.0) Assessment: Instructions: Will send script to start [...] ORAL CAPSULEPROZAC 10 MG ORAL CAPSULEVITAMIN D3 67975 UNIT ORAL TABLETMedication Changes:New Prescription:MACROBID 100 MG ORAL CAPSULE-take one tablet by mouth daily x 5 day s. Qty: 10[Capsule] Refills: 0 Method: ElectronicAllergies:No Known Allergies (updated 04/24/2020) Orders:Urinalysis-manual [CPT-00666] Urine Culture & Sensitivity [CPT-47750] URINALYSIS [CPT-50516] Adult - Ofc Vst, EST, Level III [CPT-50328] Follow-Up Return to clinic: as scheduled and as needed Clinical Visit Summary CompletedMedications:MACROBID 100 MG ORAL CAPSULE (NITROFURANTOIN MONOHYD MACRO) take one tablet by mouth daily x 5 days. #10[Capsule] x 0 Route:ORAL Entered and Authorized by: Sugar WALLS Method used: Electronically to [facility] (retail) [address] [place] [address] Ph: Note to Pharmacy: Route: ORAL; Indications: URINARY TRACT INFECTION, SITE NOT SPECIFIED;DYSURIA RxID: [id number] signed by Sugar WALLS on 07/28/2020 at 9:06 AM Name Value Range Interpretation Code Description Data Charissa rce(s) Supporting Document(s) ID Date Data Source [id number] 07/24/2020 03:14:36 PM EDT [facility] Name Value Range Interpretation Code Description Data Charissa rce(s) Supporting Document(s) [facility] negative [facility] BLOOD UR DIP 3+ [facility] GLUCOSE, URN negative [facility] KETONES URN negative [facility] NITRITE URN negative [facility] PH URINE 6.0 [facility] PROTEIN, URN 0.15 [facility] SPEC GR URIN 1.030 [facility] UA COLOR yellow [facility] UROBILINOGEN 4 [facility] WBC DIPSTK U [facility] ID Date Data Source [id number] 05/22/2020 01:50:34 PM EDT [facility] Initial Intake Information From: patient [...] been admitted to the hospital? No - [facility] Hospital admission date reported today: 04/17/2020Have you [...] during this visit, including review of any fatn-jtd-ufoiccx medications, herbal therapies, and/or supplements.Allergy ReviewAllergy List [...] explanation of examination or test findings (ICD-V65.8) (MNT98-H60.2) Assessment: Telephone visit 20 minutes. Instructions: We have reviewed your lab results with you today. Lab results unremarkable except for vitamin D deficiency. Wew will send a prescription for vitamin d meds. please take weekly as prescribed. Please report any major side effects. Please continue healthy diet and physical activities.vitamin D deficiency (ICD-268.9) (SLA41-Q65.9) Assessment: Instructions: vitamin D meds sent to pharmacy for you today.Assessed:Anxiety depression (ICD-300.4) (VKU28-V00.8) Assessment: Spoke with Telepsych iván, will schedule to see Dr Delgado. Instructions: our Telepsych nurse will be intouch with you to schedule you to see our Telepsych provider. In the meantine Please try to monitor, report and avoid triggers causing anxiety and or depressionNicotine dependence, unspecified, uncomplicated (TCF02-Y43.200) Assessment: Instructions: Please continue to try to cut back on your smoking with a goal to quit.Health Screening (ICD-V70.0) (ICD10- Z13.9) Assessment: Instructions: labs reviewed with you today.Assessment not Saved Person consulting for explanation of examination or test findings (DYI89-A52.2): Patient Instructions/Care Plan: Person consulting for explanation [...] in collaboration with patient and/or familyMedications:VITAMIN D3 07795 UNIT ORAL TABLETSUBOXONE 8-2 MG SUBLINGUAL FILMMedication Changes:New Prescription:VITAMIN D3 13323 UNIT ORAL TABLET-1 po q wk for 12 wks, then change to 1000 unit tablet daily thereafter Qty: 12[Tablet] Refills: 0 Method: ElectronicRemoved:HYDROXYZINE HCL 50 MG ORAL TABLETAllergies:No Known Allergies (updated 04/24/2020) Orders:Telephone E&M 11- 20 min Medical Discussion [CPT-57012] Follow-Up Return to clinic: 3 months for follow up Medications:VITAMIN D3 58913 UNIT ORAL TABLET (CHOLECALCIFEROL) 1 po q wk for 12 wks, then change to 1000 unit tablet daily thereafter #12[Tablet] x 0 Route:ORAL Entered and Authorized by: Sugar WALLS Method used: Electronically to [facility] (retail) [address] [place] [address] Note to Pharmacy: Route: ORAL; Indications: VITAMIN D DEFICIENCY RxID: [id number] signed by Sugar WALLS on 05/27/2020 at 12:23 AM Name Value Range Interpretation Code Description Data Charissa rce(s) Supporting Document(s) ID Date Data Source [id number] 04/24/2020 12:00:00 PM EDT [facility] Name Value Range Interpretation Code Description Data Charissa rce(s) Supporting Document(s) HCT 44.1 % 36.0-47.0 N [facility] HGB 14.3 g/dL 12.0-15.5 N [facility] MCH 32.4 G/DL pg 32.0-36.[address] [facility] MCHC 29.7 PG % 27.0-33.0 N [facility] PLATELETS 269 10 10*3/mm3 150-450 N [facility] RBC 4.82 10 10*6/mm3 4.00-5.40 N [facility] RDW 13.5 % 11.5-14.5 N [facility] WBC TOTAL 5.8 4.0-10.0 N [facility] ID Date Data Source [id number] 04/24/2020 12:00:00 PM EDT [facility] Name Value Range Interpretation Code Description Data Charissa rce(s) Supporting Document(s) VIT D25 TOT 19.1 ng/mL 30.0-100.[address] [facility] BG FASTING 85 mg/dL 70-100 N [facility] T4, FREE 1.13 ng/dL 0.76-1.46 N [facility] TSH 0.839 microintl units/mL 0.358-3.740 N [facility] ID Date Data Source [id number] 04/24/2020 12:00:00 PM EDT [facility] Name Value Range Interpretation Code Description Data Charissa rce(s) Supporting Document(s) HGBA1C 5.3 % N [facility] ID Date Data Source [id number] 04/24/2020 11:40:00 AM EDT [facility] Name Value Range Interpretation Code Description Data Charissa rce(s) Supporting Document(s) URINECULTRTN NO GROWTH N [facility] ID Date Data Source [id number] 04/24/2020 11:40:00 AM EDT [facility] Name Value Range Interpretation Code Description Data Charissa rce(s) Supporting Document(s) APPEARANCE U CLEAR CLEAR N [facility] SPEC GR URIN 1.010 1.002-1.035 N [place] [facility] UA COLOR STRAW YELLOW N [facility] ID Date Data Source [id number] 04/24/2020 09:39:40 AM EDT [facility] Measurements & CalculationsHeight: 63 inches [...] been admitted to the hospital? Yes - [facility] Hospital admission date reported today: 04/17/2020Have you [...] weeks. Per mom Pt quit going to [place] about one month ago. Pt states had stop taking medications because she thought that she was . Pt is today stating dont believe that she is but would like to have urine test done to be sure. . Pt states has appointment with [facility] on Wednesday. 04/26. Pt very guarded, not wanting to say too much. Pt would like referral in house for and telepsych. Pt encourged to keep upcoming appointment at [facility]. HPI performed by: Sugar WALLS, April 24, 2020 11:12 AMTransitions of Care InboundProblem ReviewProblem List was reviewed and/or updated during this visit.Medication Reconciliation & ReviewMedication List was reviewed and/or updated during this visit, including review of any nutw-ovf-mqwwfps medications, herbal therapies, and/or supplements.Allergy ReviewAllergy List [...] is? FairAssessment & Plan Problems:Added: Fatigue (ICD-780.79) (IDW06-J54.83) Assessment: Instructions: We have ordered labs for you today. We will contact you if results are abnormal.Fatigue (ICD-780.79) (ZED62-G35.83) Assessment: Pt states increased tiredness and fatigue. labs ordered for eval.Assessed:Health Screening (ICD-V70.0) (RJB64-D66.9) Assessment: Instructions: labs ordered today.Urine test negative. will send blood work for HCG testing.Anxiety depression (ICD-300.4) (OCP64-D43.8) Assessment: Instructions: Please continue medications as prescribed. Please Keep your appointment with [facility] as scheduled.Nicotine dependence, unspecified, uncomplicated (ACH13-G65.200) Assessment: Instructions: Please try to cut back on your smoking with a goal to quit.Anxiety depression (ICD-300.4) (ICD10- F41.8) Assessment: and telepsych referral madeAssessment not Saved Anxiety depression (BLC79-W74.8): Comment Only and telepsych referral madePatient Instructions/Care Plan: Fatigue: We have ordered labs for you today. We will contact you if results are abnormal.Health Screening: labs ordered today.Urine test negative. will send blood work for HCG testing.Anxiety depression: Please continue medications as prescribed. Please Keep your appointment with [facility] as scheduled.Nicotine dependence- unspecified- uncomplicated: Please try to cut back on your smoking with a goal to quit. Plan developed in collaboration with patient and/or familyMedications:HYDROXYZINE HCL 50 MG ORAL TABLETSUBOXONE 8-2 MG SUBLINGUAL F ILMAllergies:No Known Allergies (updated 04/24/2020) Orders:COMP METABOLIC PANEL [CPT-21621] CBC W/DIFF [CPT-22290] T-4 free [CPT-53550] TSH [CPT-82519] LIPID PANEL [CPT-27876] HgBA1c [CPT-43656] Vitamin D 250H Unspecified [CPT-54555] URINALYSIS [CPT-02227] Urine Culture & Sensitivity [CPT-86753] Urine - Chlamydia [CPT-86263] Urine - Gonorrhea [CPT-02874] VITAMIN B-12 [CPT-96429] IRON [CPT- 37377] FERRITIN [CPT-03167] Folate (Folic Acid Serum) [CPT-08954] URINE TEST [CPT-42661] Free Beta hCG [CPT-72147] HCG-Quantitative [CPT- 56557] Mental Health Consult [CPT-99870] Telepsychiatry Consult [CPT-53250] Adult - Ofc Vst, EST, Level IV [CPT-63069] Follow-Up Return to clinic: 2-3 weeks for follow up. Clinical Visit Summary Completed Name Value Range Interpretation Code Description Data Charissa rce(s) Supporting Document(s) ID Date Data Source [id number] 11/09/2019 08:14:52 AM [facility] Measurements & CalculationsHeight: 63 inches (5 [...] at this time. HPI performed by: Sugar Powell [facility], November 09, 2019 8:45 AMTransitions of Care InboundProblem ReviewProblem List was reviewed and/or updated during this visit.Medication Reconciliation & ReviewMedication List was reviewed and/or updated during this visit, including review of any jcnu-dls-giyfdsg medications, herbal therapies, and/or supplements.Allergy ReviewAllergy List [...] & Plan Problems:Added: Nicotine dependence, unspecified, uncomplicated (OXJ14-J71.200) Assessment: Instructions: Cigarette smoking is linked to many health concerns. Please try to quit smoking. Please let us know if you need assistnce in doing so.Encounter for general adult medical examination with abnormal findings (ICD-V70.0) (AMY56-N88.01) Assessment: Instructions: You have had your annual physical exam done today. Lab results reviewed with you today. Please continue your medications as prescribed. Please continue lifestyle changes to include healthy diet and physical activities.Please try to maintain adequate fluid intake.Assessed:Anxiety depression (ICD-300.4) (SUO29-E51.8) Assessment: Instructions: Please continue to follow with your MH team at [facility].Health Screening (ICD-V70.0) (FGS12-B60.9) Assessment: Instructions: We have reviewed your lab results with you today. Please continue your medications as prescribed. Please continue lifestyle changes to include healthy diet and physical activities.Assessment not Saved Nicotine dependence; unspecified; uncomplicated (URO58-K77.200): Smokin g cessation discussed. pt smoking 1/2 -1 pack cigarettes daily. Pt states not yet ready to quit smoking at this time. Patient Instructions/Care Plan: Anxiety depression: Please continue to follow with your MH team at [facility].Health Screening: We have reviewed your [...] Known Allergies (updated 08/07/2019) Orders:Preventive, Est, (18-39) [CPT-97651] Follow-Up Return to clinic: as scheduled and as needed. Clinical Visit Summary Completed Name Value Range Interpretation Code Description Data Charissa rce(s) Supporting Document(s) ID Date Data Source [id number] 10/19/2019 09:44:23 AM EST [facility] Labs In-House Blood TestsDate/Time Colle cted: October 19, 2019 9:44 AMTest Result Reference Range Normal ValueComments: blood draw done in office done in the right ac tolerated well Eldon Baird MA, October 19, 2019 9:45 AMAssessment & Plan Orders:49418-Alp Vst-Est Level I [CPT-87372] 83533 - Venipuncture [CPT-61945] Name Value Range Interpretation Code Description Data Charissa rce(s) Supporting Document(s) ID Date Data Source [id number] 10/19/2019 09:25:00 AM [facility] Name Value Range Interpretation Code Description Data Charissa rce(s) Supporting Document(s) HCT 43.0 % 36.0-47.0 N [facility] HGB 13.4 g/dL 12.0-15.5 N [facility] MCH 31.2 G/DL pg 32.0-36.[address] [facility] MCHC 28.6 PG % 27.0-33.0 N [facility] PLATELETS 393 10 10*3/mm3 150-450 N [facility] RBC 4.68 10 10*6/mm3 4.00-5.40 [facility] RDW 12.5 % 11.5-14.5 [facility] WBC TOTAL 5.9 4.0-10.0 [facility] ID Date Data Source [id number] 10/19/2019 09:25:00 AM [facility] Name Value Range Interpretation Code Description Data Charissa rce(s) Supporting Document(s) HGBA1C 5.2 % N [facility] ID Date Data Source [id number] 10/19/2019 09:25:00 AM [facility] Name Value Range Interpretation Code Description Data Charissa rce(s) Supporting Document(s) VIT D25 TOT 21.7 ng/mL 30.0-100.[address] [facility] BG FASTING 85 mg/dL 70-100 [facility] T4, FREE 0.95 ng/dL 0.76-1.46 [facility] TSH 1.190 microintl units/mL 0.358-3.740 [facility] Procedure Social History Code Duration Value Status Description Data Source(s ) Smoking 03/29/2020 12:00:00 AM EDT Unknown if ever smoked comp leted Unknown if ever smoked [facility] ([facility]) Smoking 03/15/2020 12:00:00 AM EDT Unknown if ever smoked comp leted Unknown if ever smoked [facility] ([facility]) Smoking 03/14/2020 12:00:00 AM EDT Unknown if ever smoked comp leted Unknown if ever smoked [facility] ([facility]) Smoking 02/22/2020 12:00:00 AM EDT Unknown if ever smoked comp leted Unknown if ever smoked [facility] ([facility]) Smoking 02/19/2020 12:00:00 AM EDT Unknown if ever smoked comp leted Unknown if ever smoked [facility] ([facility]) Smoking 02/02/2020 12:00:00 AM EDT Unknown if ever smoked comp leted Unknown if ever smoked [facility] ([facility]) Vital Signs ID Date Data Source UNK Name Value Range Interpretation Code Description Data Source(s) Body weight 1776 [oz_av] 1776 [oz_av] [facility] ([facility]) Body mass index (BMI) [Ratio] 19.7 kg/m2 19.7 k g/m2 [facility] ([facility]) Body height 63 [in_i] 63 [in_i] [facility] ([facility]) Body weight 1776 [oz_av] 1776 [oz_av] [facility] ([facility]) Body mass index (BMI) [Ratio] 19.7 kg/m2 19.7 k g/m2 [facility] ([facility]) Body height 63 [in_i] 63 [in_i] [facility] ([facility]) Body height 63 [in_i] 63 [in_i] [facility] ([facility]) Diastolic blood pressure 67 mm[Hg] 67 mm[Hg] [facility] ([facility]) Body weight 1634.08 [oz_av] 1634.08 [oz_av] ATH AMIRA ([facility]) Systolic blood pressure 98 mm[Hg] 98 mm[Hg] A THENA ([facility]) Body height 63 [in_i] 63 [in_i] [facility] ([facility]) Diastolic blood pressure 67 mm[Hg] 67 mm[Hg] [facility] ([facility]) Body weight 1634.08 [oz_av] 1634.08 [oz_av] ATH [facility] ([facility]) Systolic blood pressure 98 mm[Hg] 98 mm[Hg] A [facility] ([facility]) Body height 63 [in_i] 63 [in_i] [facility] ([facility]) Diastolic blood pressure 67 mm[Hg] 67 mm[Hg] [facility] ([facility]) Body weight 1634.08 [oz_av] 1634.08 [oz_av] ATH AMIRA ([facility]) Systolic blood pressure 98 mm[Hg] 98 mm[Hg] A [facility] ([facility]) Diastolic blood pressure 0 mm[Hg] Normal (applies to non-numeric results) 0 mm[Hg] [facility] ([facility]) Systolic blood pressure 0 mm[Hg] Normal (applies t o non-numeric results) 0 mm[Hg] [facility] ([facility]) Body mass index (BMI) [Ratio] 23.24 kg/m2 No rmal (applies to non-numeric results) 23.24 kg/m2 [facility] ([facility]) Body weight Measured 123.00 lbs Normal (applies to n on-numeric results) 123.00 lbs [facility] ([facility]) Body height 61.00 in Normal (applies to non-numeric resu lts) 61.00 in [facility] ([facility]) Body weight 2072.96 [oz_av] 2072.96 [oz_av] ATH [facility]IRA ([facility]) Systolic blood pressure 101 mm[Hg] 101 mm[Hg] A [facility] ([facility]) Body height 63 [in_i] 63 [in_i] [facility] ([facility]) Diastolic blood pressure 62 mm[Hg] 62 mm[Hg] [facility] ([facility]) Body weight 2072.96 [oz_av] 2072.96 [oz_av] ATH [facility] ([facility]) Systolic blood pressure 101 mm[Hg] 101 mm[Hg] [facility] Body height 63 [in_i] 63 [in_i] [facility] ([facility]) Diastolic blood pressure 62 mm[Hg] 62 mm[Hg] [facility] ([facility]) Body weight 2072.96 [oz_av] 2072.96 [oz_av] ATH [facility] ([facility]) Systolic blood pressure 101 mm[Hg] 101 mm[Hg] A THENA ([facility]) Body height 63 [in_i] 63 [in_i] [facility] ([facility]) Diastolic blood pressure 62 mm[Hg] 62 mm[Hg] [facility] ([facility]) Patient Treatment Plan of Care Planned Activity Planned Date Details Description Data Source (s) Sucralfate 1000 MG Oral Tablet [facility] ([facility]) pantoprazole 40 MG Delayed Release Oral Tablet [facility] ([facility]) Ondansetron 4 MG Oral Tablet [facility] ([facility]) Ondansetron 8 MG Disintegrating Oral Tablet [facility] ([facility]) Omeprazole 40 MG Delayed Release Oral Capsule [facility] ([facility]) Narcan 4 mg/actuation nasal spray [facility] ([facility]) Metronidazole 500 MG Oral Tablet [facility] ([facility]) Lorazepam 0.5 MG Oral Tablet [facility] ([facility]) Ibuprofen 800 MG Oral Tablet [facility] ([facility]) Hydroxyzine Hydrochloride 50 MG Oral Tablet [facility] ([facility]) Hydroxyzine Hydrochloride 25 MG Oral Tablet [facility] ([facility]) gabapentin 600 MG Oral Tablet [facility] ([facility]) Fluconazole 150 MG Oral Tablet [facility] ([facility]) Escitalopram 5 MG Oral Tablet [facility] ([facility]) Buprenorphine 8 MG / Naloxone 2 MG Sublingual Tablet [facility] ([facility]) Buprenorphine 8 MG / Naloxone 2 MG Oral Strip [facility] ([facility]) Buprenorphine 4 MG / Naloxone 1 MG Oral Strip [facility] ([facility]) Buprenorphine 2 MG / Naloxone 0.5 MG Oral Strip [facility] ([facility]) aripiprazole 5 MG Oral Tablet [facility] ([facility]) Amoxicillin 875 MG Oral Tablet [facility] ([facility]) Sucralfate 1000 MG Oral Tablet [facility] ([facility]) pantoprazole 40 MG Delayed Release Oral Tablet [facility] ([facility]) Ondansetron 4 MG Oral Tablet [facility] ([facility]) Ondansetron 8 MG Disintegrating Oral Tablet [facility] ([facility]) Omeprazole 40 MG Delayed Release Oral Capsule [facility] ([facility]) Narcan 4 mg/actuation nasal spray [facility] ([facility]) Metronidazole 500 MG Oral Tablet [facility] ([facility]) Lorazepam 0.5 MG Oral Tablet [facility] ([facility]) Ibuprofen 800 MG Oral Tablet [facility] ([facility]) Hydroxyzine Hydrochloride 50 MG Oral Tablet [facility] ([facility]) Hydroxyzine Hydrochloride 25 MG Oral Tablet [facility] ([facility]) gabapentin 600 MG Oral Tablet [facility] ([facility]) Fluconazole 150 MG Oral Tablet [facility] ([facility]) Escitalopram 5 MG Oral Tablet [facility] ([facility]) Buprenorphine 8 MG / Naloxone 2 MG Sublingual Tablet [facility] ([facility]) Buprenorphine 4 MG / Naloxone 1 MG Oral Strip [facility] ([facility]) Buprenorphine 2 MG / Naloxone 0.5 MG Oral Strip [facility] ([facility]) Amoxicillin 875 MG Oral Tablet [facility] ([facility])
[2020-11-08] MEDS ORDERED: TAMSULOSIN 0.4 MG CAP PO ONE (22:15)
[2020-11-08] MEDS ORDERED: FLOM0.4C39 PO (22:27)
[2020-11-08] MEDS ORDERED: KETO10TAB PO (22:27)
[2020-11-08 22:46] VITALS: BP 125/59
[2020-11-09] MEDS ORDERED: ONDA4TAB6 PO (17:35)
== END 2020-11-08 23:16 | disposition home or self-care (01) ==
LOC: M ED 19:18
DX: N20.1 Calculus of ureter (principal); N13.30 Unspecified hydronephrosis; J45.909 Unspecified asthma, uncomplicated; K58.9 Irritable bowel syndrome, unspecified; F33.9 Major depressive disorder, recurrent, unspecified; F41.9 Anxiety disorder, unspecified; K21.9 Gastro-esophageal reflux disease without esophagitis; B02.9 Zoster without complications; F11.10 Opioid abuse, uncomplicated; Z79.891 Long term (current) use of opiate analgesic; F17.210 Nicotine dependence, cigarettes, uncomplicated
CPT/HCPCS: 74177; 80047; 81001; 84702; 85025; 96361; 96374; 96375; 99284; J1885; J2405; Q9967

== ENCOUNTER → 2020-11-26 | Outpatient (REF) | payer OTHER ==
[~2020-11-26] MED LIST changes: +FLOM0.4C39 PO; +KETO10TAB PO; +ONDA4TAB6 PO
[2020-11-26 17:33] LABS: APPEARANCE, URINE CLEAR (CLEAR); BACTERIA, URINE AUTO NEGATIVE (NEGATIVE); BILIRUBIN, URINE AUTO NEGATIVE (NEGATIVE); BLOOD, URINE BLOOD NEGATIVE (NEGATIVE); COLOR, URINE YELLOW (YELLOW); GLUCOSE, URINE (UA) AUTO NEGATIVE (NEGATIVE); KETONE, URINE AUTO NEGATIVE (NEGATIVE); LEUKOCYTE ESTERASE, URINE AUTO NEGATIVE (NEGATIVE); MUCUS, URINE SMALL (NEGATIVE); NITRITE, URINE AUTO NEGATIVE (NEGATIVE); PROTEIN, URINE AUTO NEGATIVE (NEGATIVE); RBC, URINE AUTO 3 /HPF (0-3); SPECIFIC GRAVITY URINE AUTO 1.021 (1.002-1.035); SQUAMOUS EPITHELIAL CELL UR AU 4 /HPF (0-6); UROBILINOGEN, URINE AUTO 0.2 mg/dL (0.0-2.0); WBC, URINE AUTO 0 /HPF (0-3)
== END ==
LOC: M SMT 16:47
PROVIDERS: ATTEND Nurse Practitioner Family
DX: N20.0 Calculus of kidney (principal)

== ENCOUNTER → 2020-12-10 | Outpatient (CLI) | payer OTHER ==
--- NOTE | 2020-12-10 14:07 | REP ---
INDICATION: KIDNEY STONE COMPARISON: CT dated 11/08/2020 TECHNIQUE: Real time chambers scale ultrasound examination using curved array transducer. FINDINGS: The kidneys are normal in contour, size, echogenicity, and reniform shape. Right kidney measures 10.1 x 4.9 x 5.5 cm with suggestion for 6 mm nonobstructing calculus, and no evidence for hydronephrosis, cystic or renal mass lesion. Left kidney measures 9.6 x 4.8 x 5.3 cm and appears normal without hydronephrosis, nephrolithiasis, cystic or renal mass lesion. IMPRESSION: 1. Possible 6 mm nonobstructing right renal calculus. No hydronephrosis. <Electronically signed by Darrel Lucas > 12/10/20 [id number]
--- NOTE | 2020-12-10 14:10 | REP ---
INDICATION: KIDNEY STONE COMPARISON: None TECHNIQUE: Real time B-mode ultrasound examination using curved array transducer. FINDINGS: Bladder is normal in appearance without wall thickening or mass lesion. Bilateral ureteral jets are identified. Prevoid bladder measures 4.9 x 4.9 x 8.2 cm (129 cc). Postvoid bladder measures 3.6 x 5.0 x 1.2 cm (22 cc). Postvoid residual: 16% IMPRESSION: Bladder was insufficiently distended on prevoid imaging and postvoid residual percentage may be erroneously elevated. No obvious anatomical abnormality of the bladder noted by ultrasound <Electronically signed by Darrel Lucas > 12/10/20 [id number]
== END ==
LOC: M RAD 12:47
PROVIDERS: ATTEND Nurse Practitioner Family
DX: N20.0 Calculus of kidney (principal)

== ENCOUNTER → 2021-01-27 | Outpatient (REF) | payer OTHER ==
[~2021-01-27] MED LIST changes: +ACYC1TAB; -ACYC400T
[2021-01-27 18:27] LABS: APPEARANCE, URINE CLOUDY (CLEAR); BACTERIA, URINE AUTO 1+ (NEGATIVE); BILIRUBIN, URINE AUTO NEGATIVE (NEGATIVE); BLOOD, URINE BLOOD NEGATIVE (NEGATIVE); COLOR, URINE YELLOW (YELLOW); GLUCOSE, URINE (UA) AUTO NEGATIVE (NEGATIVE); KETONE, URINE AUTO TRACE mg/dL (NEGATIVE); LEUKOCYTE ESTERASE, URINE AUTO NEGATIVE (NEGATIVE); MUCUS, URINE SMALL (NEGATIVE); NITRITE, URINE AUTO NEGATIVE (NEGATIVE); PROTEIN, URINE AUTO NEGATIVE (NEGATIVE); RBC, URINE AUTO 2 /HPF (0-3); SPECIFIC GRAVITY URINE AUTO 1.013 (1.002-1.035); SQUAMOUS EPITHELIAL CELL UR AU 14 /HPF (0-6); UROBILINOGEN, URINE AUTO 0.2 mg/dL (0.0-2.0); WBC, URINE AUTO 0 /HPF (0-3)
== END ==
LOC: M SMT 16:41
PROVIDERS: ATTEND Nurse Practitioner Family
DX: N39.0 Urinary tract infection, site not specified (principal)

== ENCOUNTER → 2021-03-15 | Outpatient (REF) | payer OTHER ==
[~2021-03-15] MED LIST changes: +EMTR1TAB16 PO; -TRUVTAB PO
== END ==
LOC: M WUC 18:07
PROVIDERS: ATTEND Physician Assistant
DX: R10.30 Lower abdominal pain, unspecified (principal)

== ENCOUNTER → 2021-05-29 | Outpatient (REF) | payer OTHER ==
[2021-05-29 17:05] LABS: APPEARANCE, URINE HAZY (CLEAR); BACTERIA, URINE AUTO NEGATIVE (NEGATIVE); BILIRUBIN, URINE AUTO NEGATIVE (NEGATIVE); BLOOD, URINE BLOOD NEGATIVE (NEGATIVE); COLOR, URINE STRAW (YELLOW); GLUCOSE, URINE (UA) AUTO NEGATIVE (NEGATIVE); KETONE, URINE AUTO NEGATIVE (NEGATIVE); LEUKOCYTE ESTERASE, URINE AUTO NEGATIVE (NEGATIVE); NITRITE, URINE AUTO NEGATIVE (NEGATIVE); PROTEIN, URINE AUTO NEGATIVE (NEGATIVE); RBC, URINE AUTO 0 /HPF (0-3); SQUAMOUS EPITHELIAL CELL UR AU 5 /HPF (0-6); UROBILINOGEN, URINE AUTO 0.2 mg/dL (0.0-2.0); WBC, URINE AUTO 1 /HPF (0-3)
[2021-05-30 04:58] LABS: GC DNA AMPLIFICATION NEGATIVE (NEGATIVE)
== END ==
LOC: M LAB REF 16:36
PROVIDERS: ATTEND Physician Assistant
DX: R30.0 Dysuria (principal)

== ENCOUNTER → 2022-12-20 | Outpatient (CLI) | payer OTHER ==
[~2022-12-20] MED LIST changes: +FLUO-96 PO; -FLUO10CA16 PO; +FLUO10CA18 PO; -FLUO20CA20 PO; -LACT3000 PO; +LACT30006 PO
[2022-12-20 13:14] LABS: HCG, SERUM QUALITATIVE NEGATIVE (NEGATIVE)
[2022-12-20 13:15] LABS: ALBUMIN 3.9 G/DL (3.2-5.2); ALKALINE PHOSPHATASE 79 U/L (46-116); ALT/SGPT 30 U/L (7.0-40); AST/SGOT 22 U/L (<34); BILIRUBIN,TOTAL 0.5 MG/DL (0.3-1.2); BLOOD UREA NITROGEN 18 MG/DL (9-23); CALCIUM LEVEL 9.2 MG/DL (8.5-10.1); CARBON DIOXIDE LEVEL 28 MMOL/L (20-31); CHLORIDE LEVEL 105 MMOL/L (98-107); CREATININE FOR GFR 1.28 MG/DL (0.55-1.30); GLOMERULAR FILTRATION RATE 53.3 (>60); GLUCOSE, FASTING 95 MG/DL (60-100); POTASSIUM SERUM 4.4 MMOL/L (3.5-5.1); SODIUM LEVEL 138 MMOL/L (136-145); TOTAL PROTEIN 6.9 G/DL (5.7-8.2)
[2022-12-20 13:30] LABS: HEPATITIS B SURFACE ANTIGEN NEGATIVE (NEGATIVE)
[2022-12-20 13:43] LABS: HIV 1&2 SCREEN CENTAUR NEGATIVE (NEGATIVE)
[2022-12-20 13:51] LABS: HEPATITIS C VIRUS ABY INDEX < 0.0 INDEX (<0.8)
[2022-12-20 14:27] LABS: GC DNA AMPLIFICATION NEGATIVE (NEGATIVE)
== END ==
LOC: M LAB 12:02
PROVIDERS: ATTEND Family Medicine
DX: F11.20 Opioid dependence, uncomplicated (principal)

== ENCOUNTER → 2022-12-21 | Outpatient (REF) | payer OTHER ==
[2022-12-21 09:56] LABS: HEMATOCRIT 39.3 % (36.0-47.0); HEMOGLOBIN 12.5 g/dl (12.0-15.5); MEAN CORPUSCULAR HEMOGLOBIN 29.4 pg (27.0-33.0); MEAN CORPUSCULAR HGB CONC 31.8 g/dl (32.0-36.5); MEAN CORPUSCULAR VOLUME 92.5 fl (80.0-96.0); PLATELET COUNT, AUTOMATED 249 10^3/uL (150-450); RED BLOOD COUNT 4.25 10^6/uL (4.00-5.40); WHITE BLOOD COUNT 6.3 10^3/uL (4.0-10.0)
== END ==
LOC: M LAB 09:35
PROVIDERS: ATTEND Family Medicine
DX: F11.20 Opioid dependence, uncomplicated (principal)

== ENCOUNTER 2023-03-25 19:24 | Emergency (ER) | payer OTHER ==
[~2023-03-25] VITALS: Ht 154.9 cm; Wt 75.2 kg
[2023-03-25] MEDS ORDERED: GABA600T4 (19:33)
[2023-03-25] MEDS ORDERED: METH-1177 PO (19:33)
[2023-03-25 21:13] LABS: HEMATOCRIT 38.4 % (36.0-47.0); HEMOGLOBIN 12.5 g/dl (12.0-15.5); MEAN CORPUSCULAR HGB CONC 32.6 g/dl (32.0-36.5); MEAN CORPUSCULAR VOLUME 92.1 fl (80.0-96.0); PLATELET COUNT, AUTOMATED 300 10^3/uL (150-450); RED BLOOD COUNT 4.17 10^6/uL (4.00-5.40); WHITE BLOOD COUNT 9.3 10^3/uL (4.0-10.0)
[2023-03-25 21:40] LABS: BLOOD UREA NITROGEN 11 MG/DL (9-23); CARBON DIOXIDE LEVEL 30 MMOL/L (20-31); CHLORIDE LEVEL 104 MMOL/L (98-107); CREATININE FOR GFR 0.74 MG/DL (0.55-1.30); GLOMERULAR FILTRATION RATE > 60.0 (>60); GLUCOSE, FASTING 83 MG/DL (60-100); POTASSIUM SERUM 4.3 MMOL/L (3.5-5.1); SODIUM LEVEL 140 MMOL/L (136-145)
[2023-03-25] MEDS ORDERED: DOXYCYCLINE HYCLATE 100MG TABLET PO ONE (22:00)
[2023-03-25] MEDS ORDERED: DOXY-443 PO (22:01)
[2023-03-25 22:21] VITALS: BP 124/68; TEMP 98.6; O2SAT 98
== END 2023-03-25 22:27 | disposition home or self-care (01) ==
LOC: M ED 19:24
DX: S80.261A Insect bite (nonvenomous), right knee, initial encounter (principal); W57.XXXA Bitten or stung by nonvenomous insect and other nonvenomous arthropods, initial encounter; Y92.89 Other specified places as the place of occurrence of the external cause; Y93.89 Activity, other specified; Y99.8 Other external cause status; J45.909 Unspecified asthma, uncomplicated; K21.9 Gastro-esophageal reflux disease without esophagitis; K58.9 Irritable bowel syndrome, unspecified; F11.10 Opioid abuse, uncomplicated; B00.9 Herpesviral infection, unspecified; Z79.899 Other long term (current) drug therapy

== ENCOUNTER 2023-11-01 22:48 | Emergency (ER) | payer OTHER ==
[~2023-11-01 22:48] MED LIST changes: +DOXY-443 PO; +GABA600T4; +METH-1177 PO
[2023-11-01 23:38] LABS: BASO % 0.2 % (0.0-1.0); EOS # 0.1 10^3/uL (0.0-0.5); EOS % 0.8 % (0.0-3.0); HEMATOCRIT 38.4 % (36.0-47.0); HEMOGLOBIN 12.7 g/dl (12.0-15.5); LYMPH % 21.7 % (24.0-44.0); MEAN CORPUSCULAR HEMOGLOBIN 29.5 pg (27.0-33.0); MEAN CORPUSCULAR HGB CONC 33.1 g/dl (32.0-36.5); MEAN CORPUSCULAR VOLUME 89.1 fl (80.0-96.0); MONO # 0.7 10^3/uL (0.0-0.8); MONO % 7.5 % (2.0-8.0); NEUTROPHILS # 6.4 10^3/uL (1.5-8.5); NEUTROPHILS % 69.5 % (36.0-66.0); PLATELET COUNT, AUTOMATED 290 10^3/uL (150-450); RED BLOOD COUNT 4.31 10^6/uL (4.00-5.40); WHITE BLOOD COUNT 9.2 10^3/uL (4.0-10.0)
[2023-11-02 00:09] LABS: CK-MB VALUE MASS 1.6 NG/ML (<3.6)
[2023-11-02 00:10] LABS: BLOOD UREA NITROGEN 14 MG/DL (9-23); CALCIUM LEVEL 9.7 MG/DL (8.5-10.1); CARBON DIOXIDE LEVEL 29 MMOL/L (20-31); CHLORIDE LEVEL 108 MMOL/L (98-107); CPK CREATINE PHOSPHOKINASE 185 U/L (34-145); CREATININE FOR GFR 0.68 MG/DL (0.55-1.30); GLOMERULAR FILTRATION RATE > 60.0 (>60); GLUCOSE, FASTING 96 MG/DL (60-100); MB/CK RELATIVE INDEX 0.86 (< OR =4); POTASSIUM SERUM 4.2 MMOL/L (3.5-5.1); SODIUM LEVEL 142 MMOL/L (136-145)
[2023-11-02 01:28] LABS: CK-MB VALUE MASS 1.5 NG/ML (<3.6)
[2023-11-02 01:30] LABS: CPK CREATINE PHOSPHOKINASE 193 U/L (34-145); MB/CK RELATIVE INDEX 0.77 (< OR =4)
[2023-11-02] MEDS ORDERED: ALPRAZolam 0.5 MG TAB PO ONE (02:45)
[2023-11-02] MEDS ORDERED: MIRA3350 PO (07:06)
[2023-11-02 07:33] VITALS: BP 140/79; TEMP 97.5; O2SAT 100
== END 2023-11-02 07:49 | disposition home or self-care (01) ==
LOC: M ED 22:48
DX: R07.89 Other chest pain (principal); K58.1 Irritable bowel syndrome with constipation; Z91.048 Other nonmedicinal substance allergy status; K21.9 Gastro-esophageal reflux disease without esophagitis; F19.10 Other psychoactive substance abuse, uncomplicated

== ENCOUNTER → 2025-01-10 | Outpatient (CLI) | payer OTHER ==
[~2025-01-10] MED LIST changes: +DOXY-441 PO; -DOXY-443 PO; +FLUO-290 PO; -FLUO10CA18 PO; +GABA-1490; -GABA600T4; +MIRA3350 PO; +ONDA-282 PO; -ONDA4TAB6 PO
[2025-01-10 11:38] LABS: HEMOGLOBIN 13.2 g/dl (12.0-15.5); MEAN CORPUSCULAR HGB CONC 32.2 g/dl (32.0-36.5); MEAN CORPUSCULAR VOLUME 90.1 fl (80.0-96.0); PLATELET COUNT, AUTOMATED 267 10^3/uL (150-450); RED BLOOD COUNT 4.55 10^6/uL (4.00-5.40); WHITE BLOOD COUNT 8.2 10^3/uL (4.0-10.0)
[2025-01-10 12:06] LABS: ALKALINE PHOSPHATASE 98 U/L (35-104); ALT/SGPT 18 U/L (7.0-40); AST/SGOT 20 U/L (<34); BILIRUBIN,TOTAL 0.4 MG/DL (0.3-1.2); BLOOD UREA NITROGEN 10 MG/DL (9-23); CALCIUM LEVEL 9.4 MG/DL (8.5-10.1); CARBON DIOXIDE LEVEL 31 MMOL/L (20-31); CHLORIDE LEVEL 104 MMOL/L (98-107); CREATININE FOR GFR 0.75 MG/DL (0.55-1.30); GLOMERULAR FILTRATION RATE > 60.0 (>60); GLUCOSE, FASTING 80 MG/DL (60-100); POTASSIUM SERUM 4.3 MMOL/L (3.5-5.1); SODIUM LEVEL 140 MMOL/L (136-145); TOTAL PROTEIN 7.4 G/DL (5.7-8.2)
[2025-01-10 12:18] LABS: HCG, SERUM QUALITATIVE NEGATIVE (NEGATIVE)
[2025-01-10 12:25] LABS: HEPATITIS B SURFACE ANTIGEN NEGATIVE (NEGATIVE)
[2025-01-10 12:37] LABS: HIV 1&2 SCREEN NEGATIVE (NEGATIVE)
[2025-01-10 12:46] LABS: HEPATITIS C VIRUS ABY INDEX 0.03 INDEX (<0.8)
[2025-01-10 13:12] LABS: GC DNA AMPLIFICATION NEGATIVE (NEGATIVE)
== END ==
LOC: M LAB 10:39
PROVIDERS: ATTEND Family Medicine
DX: F11.20 Opioid dependence, uncomplicated (principal)
CPT/HCPCS: 36415; 80053; 84703; 85027; 86780; 86803; 87340; 87389; 87810; 87850; G0480

== ENCOUNTER → 2025-01-11 | Outpatient (CLI) | payer OTHER | LOC: M LAB 06:26 | PROVIDERS: ATTEND Family Medicine | DX: F11.20 Opioid dependence, uncomplicated (principal) | CPT/HCPCS: 36415; G0480 ==